=== PATIENT | female | born 1970 | race Caucasian/White ===

== ENCOUNTER 2020-08-30 15:34 | Emergency (ER) | payer OTHER, SELFPAY ==
[2020-08-30 16:00] VITALS: PULSE 77; RESP 16; TEMP 37.4
[2020-08-30 17:59] VITALS: BP 115/55; PULSE 85; RESP 16; TEMP 37.2; O2SAT 96; BMI 40.3
[2020-08-30 18:00] VITALS: BP 105/65; PULSE 81; RESP 17; TEMP 37.5; O2SAT 98
--- NOTE | 2020-08-30 18:06 | ED.GENADULT ---
HPI - General Adult General Chief complaint: Fever Stated complaint: flu like symptoms Time Seen by Provider: 08/30/20 18:06 History of Present Illness HPI narrative: patient is a 50-year-old female presents today with having coughing upper respiratory symptoms. His symptom has been going on for the last 3 days. Associated with some generalized malaise weakness. Patient had a coronavirus test done at [facility] on . The results not back. She does not have any history of diabetes. She does have some pain in her flank area worse with coughing. Denies any urinary frequency. Positive fever low-grade. Positive generalized malaise. Patient from home. No recent travel. No sudden in the family. Positive history of uterine growth. Status post surgery over 7 years ago. No abdominal pain. No sore throat no neck pain no photophobia Related Data Previous Rx's Medication Instructions Recorded ibuprofen 400 mg PO Q6H PRN #20 tab 08/30/20 Allergies Allergy/AdvReac Type Severity Reaction Status Date / Time No Known Allergies Allergy Unverified 08/06/20 17:28 Review of Systems Review of Systems: Constitutional: No Weight loss, positive Fever, No Chills, No Night Sweats, positive Fatigue, No Malaise ENT/Mouth: No Hearing loss, No Ear Pain, No Nasal Congestion, No Sinus Pain, No Hoarseness, No sore throat, No Rhinorrhea, No Swallowing Difficulty Eyes: No Eye Pain, No Swelling, No Redness, No Foreign Body, No Discharge, No Vision Changes Cardiovascular: No Chest Pain, No SOB, No Dyspnea on Exertion, No Orthopnea, No Edema, No Palpitations Respiratory: positive coughing, congestion, upper respiratory symptoms Gastrointestinal: No Nausea, No Vomiting, No Diarrhea, No Constipation, No abdominal Pain, No Hematochezia, No Melena Genitourinary: no irregular bleeding, No Dysuria, No Urinary Frequency, No Hematuria, No Urinary Incontinence, No Urgency, No Flank Pain, No Urinary Flow Changes, No Hesitancy Musculoskeletal: No joint pain, No Myalgias, No Joint Swelling Skin: No Skin Lesions, No rash Neuro: No Weakness, No Numbness, No Paresthesias, No Loss of Consciousness, No Dizziness, No Headache Psych: No Anxiety/Panic, No Depression, No SI/HI/AH/VH, No Social Issues, Heme/Lymph: No Bruising, No Bleeding,No Lymphadenopathy Endocrine: No Polyuria, No Polydipsia, No Temperature Intolerance [facility] Past Medical History Medical History Hypertension Pelvic neoplasm Social History Social History Alcohol intake: never Smoking Status: Never smoker Use of substances other than those prescribed or required for medical reasons: No Advance Directives: No Advance Directives Information Provided: Yes Physical Exam Vital Signs: Vital Signs: Vital Signs Temp Pulse Resp BP Pulse Ox 08/30/20 17:59 98.9 F 85 16 115/55 L 96 Body Mass Index 40.3 Appearance: Alert. Oriented X3. No acute distress. Eyes: Pupils equal, round and reactive to light. ENT: Pharynx normal. Neck: Normal inspection. Neck supple. No lymph nodes noted. No crepitus CVS: Normal heart rate and rhythm. Pulses normal. Normal S1 and S2 Respiratory: No respiratory distress. Breath sounds normal. No Wheezing. No rales Abdomen: Soft and nontender. No rigidity. No distention. good BS x4 Skin: Skin warm and dry. Normal skin color. Normal skin turgor. Extremities: No lower extremity edema. Neurovascular intact to all extremities. No Lacerations. No Rash Neuro: Oriented X 3. No motor deficit. No sensory deficit. Moving all extermities. No slurred speech Medical Decision Making MDM Narrative Medical decision making narrative: patient well appearing no acute distress. O2 sats 96% on room air. Patient's lungs are clear. Positive upper respiratory symptoms. Cannot exclude the possibility of coronavirus. Coronavirus test was already sent by patient's primary physician. Will ask patient to stay home quarantine until all symptoms and fever had resolved for at least 3 days. Patient told to drink a lot of fluid. Patient's heart rate is in the 80s. In no distress. Will check a urine to make sure patient does not have urinary tract infection. urine was negative for any acute evidence of infection. Patient's chest x-ray was negative for pneumonia. Will discharge patient. Lab Data Labs: Lab Results 08/30/20 Range/Units 18:33 Urine Color YELLOW Urine Appearance CLEAR Urine pH 5.5 (5.0-8.0) Ur Specific [place] 1.025 (1.005-1.025) Urine Protein NEG (NEG-TRACE) MG/DL Urine Glucose (UA) NEG (NEG) MG/DL Urine Ketones NEG (NEG) MG/DL Urine Blood NEG (NEG) Urine Nitrite NEG (NEG) Ur Leukocyte Esterase NEG (NEG) Discharge Plan Discharge Clinical Impression: Viral infection Patient Disposition: Home, Self-Care Instructions: Upper Respiratory Infection (ED), COVID-19 (Coronavirus Disease 2019) (ED) Additional Instructions: Thank you for visiting the emergency department today. If your symptoms worsen or do not resolve completely please return to the emergency department immediately or call 911. if he have any questions please call your primary care physician Prescriptions: New ibuprofen 400 mg tablet 400 mg PO Q6H PRN (Reason: pain) Qty: 20 RF: 0 Referrals: Gwen Crook MD [Primary Care Provider] - 2 days Print Language: Syriac
--- NOTE | 2020-08-30 18:09 | XR_ITS ---
EXAMINATION: XR CHEST CLINICAL INFORMATION: Cough COMPARISON: 12/16/2018 TECHNIQUE: Frontal view of the chest was obtained. FINDINGS: The heart and pulmonary vessels appear normal. No infiltrates or effusions are seen. There is some minimal ill-defined densities seen at both lung bases which appear slightly more prominent than previously noted but a focal consolidation or well-defined mass is not seen. IMPRESSION: Slight increase in basilar markings compared with the prior study. These findings could be atelectasis. Focal consolidation is not seen.
[2020-08-30 18:45] LABS: Glucose Urine UA NEG (NEG); Leukocyte Esterase Urine NEG (NEG); Nitrite Urine NEG (NEG); PH 5.5 (5.0-8.0); Specific Gravity - Urine 1.025 (1.005-1.025); Urine Blood NEG (NEG); Urine Ketones NEG (NEG); Urine Protein NEG (NEG-TRACE)
[2020-08-30 18:48] LABS: Appearance Urine CLEAR; Color Urine YELLOW
== END 2020-08-30 20:17 | disposition home or self-care (01) ==
PROVIDERS: Emergency Provider Emergency Medicine Emergency Medical Services; PCP Pediatrics
DX: B34.9 Viral infection, unspecified (principal); R50.9 Fever, unspecified; E11.9 Type 2 diabetes mellitus without complications; I10 Essential (primary) hypertension
CPT/HCPCS: 71045; 81003; 99283; 99284

== ENCOUNTER 2022-03-16 12:01 | Outpatient (REF) | payer OTHER, SELFPAY ==
--- NOTE | ~2022-03-16 | US_ITS ---
EXAMINATION: NONINVASIVE ANKLE BRACHIAL INDICES OF BOTH LOWER EXTREMITIES CLINICAL INFORMATION: Obesity, hypertension. Concern for lower extremity arterial insufficiency. COMPARISON: JAMES, PVR and limited duplex (with exercise) on 01/13/2014. TECHNIQUE: Ankle-brachial indices were calculated bilaterally and PVR tracings were performed at the level of the ankles. This study was performed at rest only. FINDINGS: RIGHT LEG: Right ankle-brachial index: 1.1 Right ankle pressures (mmHg): PT 145 DP 1:15 PVR (ankle): Loss of dicrotic notch LEFT LEG: Ankle-brachial index: 1.02 Left ankle pressures (mmHg): PT 134 DP 118 PVR (ankle): Loss of dicrotic notch JAMES Reference: - >0.97-1.25 = normal - no significant arterial disease - 0.75-0.96 = mild peripheral arterial disease - 0.5-0.74 = moderate peripheral arterial disease - <0.50 = severe peripheral arterial disease US/US JAMES complete IMPRESSION: RIGHT LEG: JAMES 1.1. No evidence of arterial insufficiency at rest. LEFT LEG: JAMES 1.02. No evidence of arterial insufficiency at rest.
== END 2022-03-16 12:02 | disposition home or self-care (01) ==
LOC: HO.US 12:01
PROVIDERS: Visit Provider Pediatrics
DX: E66.9 Obesity, unspecified (principal); I10 Essential (primary) hypertension; R43.9 Unspecified disturbances of smell and taste
CPT/HCPCS: 93923

== ENCOUNTER 2022-03-18 08:20 | Outpatient (REF) | payer OTHER, SELFPAY | END 2022-03-18 08:21 | disposition home or self-care (01) | LOC: HO.HOSX 08:20 | PROVIDERS: Visit Provider Physician Assistant | DX: Z13.89 Encounter for screening for other disorder (principal) ==

== ENCOUNTER 2022-06-24 07:27 | Outpatient (REF) | payer OTHER, SELFPAY | END 2022-06-24 07:28 | disposition home or self-care (01) | LOC: HO.HOSX 07:27 | PROVIDERS: Visit Provider Physician Assistant | DX: Z13.89 Encounter for screening for other disorder (principal) ==

== ENCOUNTER 2022-07-05 07:47 | Outpatient (REF) | payer OTHER, SELFPAY ==
--- NOTE | ~2022-07-05 | XR_ITS ---
EXAMINATION: XR KNEE STANDING, BILATERAL XR KNEE, RIGHT CLINICAL INFORMATION: Pain. COMPARISON: None TECHNIQUE: AP bilateral knee standing. Left knee 2 views. FINDINGS: AP BILATERAL KNEE: There is severe loss of medial and lateral compartment joint space of both knees with significant enthesophytes medial and lateral compartments of both knees, slightly greater on the right. No acute fracture seen. RIGHT KNEE: There is moderate loss of patellofemoral compartment joint space with moderate periarticular osteophytosis and several loose bodies in the suprapatellar joint effusion. There is moderate proximally and proximal lower leg soft tissue swelling. XR/XR knee RT 2V IMPRESSION: Severe degenerative arthritic changes right knee. There are several loose bodies seen in the suprapatellar bursa. Severe degenerative changes in medial and lateral compartment left knee on AP view standing.
--- NOTE | ~2022-07-05 | XR_ITS ---
EXAMINATION: XR KNEE STANDING, BILATERAL XR KNEE, RIGHT CLINICAL INFORMATION: Pain. COMPARISON: None TECHNIQUE: AP bilateral knee standing. Left knee 2 views. FINDINGS: AP BILATERAL KNEE: There is severe loss of medial and lateral compartment joint space of both knees with significant enthesophytes medial and lateral compartments of both knees, slightly greater on the right. No acute fracture seen. RIGHT KNEE: There is moderate loss of patellofemoral compartment joint space with moderate periarticular osteophytosis and several loose bodies in the suprapatellar joint effusion. There is moderate proximally and proximal lower leg soft tissue swelling. XR/XR knee standing BI IMPRESSION: Severe degenerative arthritic changes right knee. There are several loose bodies seen in the suprapatellar bursa. Severe degenerative changes in medial and lateral compartment left knee on AP view standing.
== END 2022-07-05 07:48 | disposition home or self-care (01) ==
LOC: HO.HOSX 07:47
PROVIDERS: Visit Provider Physician Assistant
DX: M17.0 Bilateral primary osteoarthritis of knee (principal)
CPT/HCPCS: 20610; 73560; 73565; 99202; J1040

== ENCOUNTER 2024-03-20 09:31 | Outpatient (REF) | payer OTHER, SELFPAY ==
[2024-03-20 14:26] LABS: MANUAL DIFF FLAG NO
[2024-03-20 14:39] LABS: Appearance Urine Cloudy; Color Urine Dark Yellow; Glucose Urine UA Negative (Negative); Leukocyte Esterase Urine Small (1+) (Negative); Nitrite Urine Negative (Negative); PH 5.5 (5.0-9.0); Specific Gravity - Urine 1.025 (1.005-1.025); UMIC TRIGGER UACC YES; Urine Blood Negative (Negative); Urine Ketones Negative (Negative); Urine Protein Trace mg/dL (Neg-Trace)
[2024-03-20 14:41] LABS: Basophils Percent Auto 0.6 % (0-2); Eosinophils Absolute Auto 0.1 X10*3/uL (0.0-0.4); Eosinophils Percent Auto 2.4 % (0-4); Hematocrit 38.3 % (37.0-47.0); Hemoglobin 13.2 g/dl (12.0-16.0); Lymphocytes Percent Auto 40.8 % (20-40); Mean Corpuscular HGB Conc 34.5 g/dl (31.0-35.0); Mean Corpuscular Volume 92.7 fL (80.0-98.0); Mean Platelet Volume 10.6 fL (9.4-12.3); Monocytes Absolute Auto 0.5 X10*3/uL (0.1-1.2); Neutrophils Absolute Auto 2.4 x10*3/uL (2.0-8.3); Neutrophils Percent Auto 47.2 % (45-73); Platelet Count 222 X10*3/uL (160-400); Red Blood Count 4.13 X10*6/uL (4.20-5.50); Red Cell Distribution Width 12.7 % (11.0-16.0)
[2024-03-20 14:46] LABS: Estimated Average Glucose 123 mg/dL; Hemoglobin A1c % 5.9 % (<6.0)
[2024-03-20 15:05] LABS: Total Protein Urine Random 13 mg/dL (<12)
[2024-03-20 15:11] LABS: Bacteria Urine 1+ (None Seen); Hyaline Casts Urine 0-2 /LPF (0-2); RBC Urine 0-2 /HPF (0-2); UACC Culture Trigger YES; WBC Urine 0-5 /HPF (0-5)
[2024-03-20 15:20] LABS: Rheumatoid Factor < 13.0 IU/mL (<15.0)
[2024-03-20 15:25] LABS: Erythrocyte Sedimentation Rate 10 MM/HR (0-20)
[2024-03-20 15:36] LABS: Anion Gap 13 (12-20); Blood Urea Nitrogen 18 mg/dL (9-16); Calcium 9.4 mg/dL (8.4-10.2); Carbon Dioxide 26 mmol/L (22-29); Chloride 106 mmol/L (96-108); Cholesterol 183 mg/dL (<200); Estimated Glomerular Filt Rate > 60; Glucose Fasting 104 mg/dL (60-99); HDL Cholesterol 62 mg/dL (>40); LDL Cholesterol Calculated 105 mg/dL (<100); Potassium 3.4 mmol/L (3.3-5.1); Sodium 142 mmol/L (135-145); Triglycerides 84 mg/dL (<150); Uric Acid 7.6 mg/dL (2.4-5.7)
[2024-03-20 15:43] LABS: TSH reflex Free T4 1.29 uIU/mL (0.32-4.0); Vitamin D 25-OH Total 52.8 ng/mL (>30)
[2024-03-20 15:44] LABS: Folate 15.7 ng/mL (> or = 4.0); Vitamin B12 792 pg/mL (200-900)
== END 2024-03-20 09:32 | disposition home or self-care (01) ==
LOC: HO.CHCLDS 09:31
PROVIDERS: Visit Provider Pediatrics
DX: I10 Essential (primary) hypertension (principal); E66.01 Morbid (severe) obesity due to excess calories; M17.2 Bilateral post-traumatic osteoarthritis of knee
CPT/HCPCS: 36415; 80048; 80061; 81001; 82306; 82607; 82746; 83036; 84156; 84443; 84550; 85025; 85652; 86431; 87086

== ENCOUNTER 2024-07-02 11:38 | Outpatient (REF) | payer OTHER, SELFPAY ==
[2024-07-02 15:03] LABS: Uric Acid 6.1 mg/dL (2.4-5.7)
== END 2024-07-02 11:39 | disposition home or self-care (01) ==
LOC: HO.CHCLDS 11:38
PROVIDERS: Visit Provider Pediatrics
DX: E79.0 Hyperuricemia without signs of inflammatory arthritis and tophaceous disease (principal)
CPT/HCPCS: 36415; 84550

== ENCOUNTER 2024-07-30 17:38 | Outpatient (REF) | payer OTHER, SELFPAY | END 2024-07-30 17:39 | disposition home or self-care (01) | LOC: HO.CHCLNP 17:38 | PROVIDERS: Visit Provider Pediatrics | DX: Z12.4 Encounter for screening for malignant neoplasm of cervix (principal) | CPT/HCPCS: 36415; 88175 ==

== ENCOUNTER 2025-01-16 13:54 | Outpatient (REF) | payer OTHER, SELFPAY ==
--- OUTSIDE RECORDS SUMMARY | 2025-01-16 16:47 | XMS_ITS | Encounter Summary ---
Author Organization [employer] Address [address] [place] [address] 7 [place] [address] Care Team Providers Care Contract Administrative Assistant Name Role Phone Gwen Crook MD Primary Care Provider [phone] Reason for Visit * Reason Onset Date Comments Med Refill 10/14/2024 Encounter Details Date Type Department Care Team ([facility] st Contact Info) Description 10/14/2024 Refill [facility] CHC MED & PEDS [address] [place], [place] [phone] wGen Crook MD [address] [place] [address] Lumbar disc herniation with radiculopathy Social History Tobacco Use Types Packs/Day Years Used Date Smoking Tobacco: Never Passive Smoke Exposure: Never Smokeless Tobacco: Never Depression Answer Date Recorded Patient Health Questionnaire-9 Score 4 01/19/2023 Housing Stability Answer Date Recorded What is your housing situation today? I have polo donna 09/06/[address] you li ve. Do you have problems with any of the following? None of the above 09/06/2023 Food Insecurity Answer Date Recorded Within the past 12 months, y ou worried that your food would run out before you got money to buy more: Never True 09/06/2023 Within the past 12 months,th e food you bought just didn't last and you didn't have enough money to get more: Never True Transportation Answer Date Recorded In the past 12 months, has l ack of transportation kept you from medical appts, meetings, work or from getting things needed for daily living? No 09/06/2023 Utilities Answer Date Recorded In the past 12 months, has t he electric, gas, oil or water company threatened to shut off services in your home? No 09/06/2023 Depression Answer Date Recorded Patient Health Questionnaire-2 Score 2 01/19/2023 Comments Unknown Sex and Gender Information Value Date Recorded Sex Assigned at Female 09/19/2022 10:19 AM EDT Legal Sex Female 10:19 AM EDT Gender Identity Female 09/19/2022 10:19 AM EDT Sexual Orientation Choose not to disclose 2021 10:19 AM EDT documented as of this encounter Miscellaneous Notes * Telephone Encounter - Lennie Melara - 10/14/2024 3:39 PM EST TC from pt requesting medication refill. Medications needing refill : acetaminophen-codeine (Tylenol w/ Codeine #3) 300- 30 MG tablet To be sent to: [facility] - [place], [place] - [address] [place] [address] documented in this encounter Plan of Treatment Upcoming Encounters Date Type Department Care Team (Late st Contact Info) Description 01/29/2025 2:45 PM EDT Clinical Support [facility] MED & PEDS [address] [place] [address] Gracie Riggs RN [address] [place] [address] 02/20/2025 11:00 AM EDT Office Visit [facility] MED & PEDS [address] [place] [address] Gwen Crook MD [address] [place] [address] documented as of this encounter Visit Diagnoses Diagnosis Lumbar disc herniation with radiculopathy Displacement of lumbar intervertebral disc without myelopathy documented in this encounter Additional Health Concerns Assessment Noted Time PHQ-9 Depression Total Score: 4 01/20/20 23 11:58 AM EST documented as of this encounter Care Teams Contract Administrative Assistant Relationship Specialty Start Date End Date Gwen Crook MD [address] [place] [address] PCP - General Family Medicine 11/20/18 documented as of this encounter
--- OUTSIDE RECORDS SUMMARY | 2025-01-16 16:47 | XMS_ITS | Encounter Summary ---
Author Organization [employer] Address [address] [place] [address] 7 [place] [address] Care Team Providers Care Debrander Name Role Phone Gwen Crook MD Primary Care Provider [phone] Reason for Visit * Reason Comments Med Refill Encounter Details Date Type Department Care Team ([facility] st Contact Info) Description 12/21/2024 Refill [facility] CHC MED & PEDS [address] [place], [place] [phone] Gwen Crook MD [address] [place] [address] Social History Tobacco Use Types Packs/Day Years Used Date Smoking Tobacco: Never Passive Smoke Exposure: Never Smokeless Tobacco: Never Depression Answer Date Recorded Patient Health Questionnaire-9 Score 4 01/19/2023 Housing Stability Answer Date Recorded What is your housing situation today? I have polo thompson 09/06/[address] you li [...] AM EDT documented as of this encounter Plan of Treatment Upcoming Encounters Date Type Department Care Team (Late st Contact Info) Description 01/29/2025 2:45 PM EDT Clinical Support [facility] MED & PEDS [address] [place] [address] Gracie Riggs RN [address] [place] [address] 02/20/2025 11:00 AM EDT Office Visit [facility] MED & PEDS [address] [place] [address] Gwen Crook MD [address] [place] [address] documented as of this encounter Visit Diagnoses Not on filedocumented in this encounter Additional Health Concerns Assessment Noted Time PHQ-9 Depression Total Score: 4 01/20/20 23 11:58 AM EST documented as of this encounter Care Teams Debrander Relationship Specialty Start Date End Date Gwen Crook MD [address] [place] [address] PCP - General Family Medicine 11/20/18 documented as of this encounter
--- OUTSIDE RECORDS SUMMARY | 2025-01-16 16:47 | XMS_ITS | Encounter Summary ---
Author Organization [employer] Address [address] [place] [address] 7 [place] [address] Care Team Providers Care Information Technology Technician Name Role Phone Gwen Crook MD Primary Care Provider [phone] Reason for Visit * Reason Comments Med Refill Encounter Details Date Type Department Care Team ([facility] st Contact Info) Description 01/02/2025 Refill [facility] CHC MED & PEDS [address] [place], [place] [phone] Petros Norris MD [address] [place] [address] Lumbar disc herniation with radiculopathy Social History Tobacco Use Types Packs/Day Years Used Date Smoking Tobacco: Never Passive Smoke Exposure: Never Smokeless Tobacco: Never Depression Answer Date Recorded Patient Health Questionnaire-9 Score 4 01/19/2023 Housing Stability Answer Date Recorded What is your housing situation today? I have poloshwetha thompson 01/01/[address] you li ve. Do you have problems with any of the following? None of the above 01/01/2025 Food Insecurity Answer Date Recorded Within the past 12 months, y ou worried that your food would run out before you got money to buy more: Never True 01/01/2025 Within the past 12 months,th e food you bought just didn't last and you didn't have enough money to get more: Never True 10/2025 Transportation Answer Date Recorded In the past 12 months, has l ack of transportation kept you from medical appts, meetings, work or from getting things needed for daily living? No 01/01/2025 Utilities Answer Date Recorded In the past 12 months, has t he electric, gas, oil or water company threatened to shut off services in your home? Yes 01/01/2025 Depression Answer Date Recorded Patient Health Questionnaire-2 Score 2 01/19/2023 Internet Access Answer Date Recorded Internet Access Q1 Yes 01/01/2025 Internet Access Q2 Not on file 01/01/2025 Comments Unknown Sex and Gender Information Value Date Recorded Sex Assigned at Female 09/19/2022 10:19 AM EDT Legal Sex Female 10:19 AM EDT Gender Identity Female 09/19/2022 10:19 AM EDT Sexual Orientation Choose not to disclose 2021 10:19 AM EDT documented as of this encounter Plan of Treatment Upcoming Encounters Date Type Department Care Team ([facility] st Contact Info) Description 01/29/2025 2:45 PM EDT Clinical Support [facility] MED & PEDS [address] [place] [address] Gracie Rigsg RN [address] [place] [address] 02/20/2025 11:00 AM EDT Office Visit [facility] MED & PEDS [address] [place] [address] Gwen Crook MD [address] [place] [address] documented as of this encounter Visit Diagnoses Diagnosis Lumbar disc herniation with radiculopathy Displacement of lumbar intervertebral disc without myelopathy documented in this encounter Additional Health Concerns Assessment Noted Time PHQ-9 Depression Total Score: 4 01/20/20 23 11:58 AM EST documented as of this encounter Care Teams Information Technology Technician Relationship Specialty Start Date End Date Gwen Crook MD [address] [place] [address] PCP - General Family Medicine 11/20/18 documented as of this encounter
--- OUTSIDE RECORDS SUMMARY | 2025-01-16 16:47 | XMS_ITS | Encounter Summary ---
Author Organization [employer] Address [address] [facility] 7 [place] [address] Care Team Providers Care Patent Searcher Name Role Phone Gwen Crook MD Primary Care Provider [phone] Reason for Visit * Reason Comments Pre-visit Planning SDOH screening posit felipe and Tobacco screening negative Encounter Details Date Type Department Care Team ([facility] st Contact Info) Description 01/01/2025 Patient Outreach [facility] MEDICINE [address] [place] [address] Gwen Crook MD [address] [place] [id number] Pre-visit Planning (SDOH screening positive and Tobacco screening negative) Social History Tobacco Use Types Packs/Day Years Used Date Smoking Tobacco: Never Passive Smoke Exposure: Never Smokeless Tobacco: Never Depression Answer Date Recorded Patient Health Questionnaire-9 Score 4 01/19/2023 Housing Stability Answer Date Recorded What is your housing situation today? I have polo thompson 01/01/[address] you [...] AM EDT documented as of this encounter Progress Notes * Fletcher Mendoza - 01/01/2025 1:32 PM EST CC Fletcher Lugo placed successful outbound call to patient for pre-visit planning. Patient name and confirmed. Patient confirms appt date and time, and has transportation arrangements. Biggest concern for appointment at this time is patient is having leg swelling with liquid and lower back pain. .Patient educated on extended clinic hours on Mondays and Wednesdays, and Walk-In Urgent Care Located in [facility] of [facility]. Patient provided with after-hours line for [facility], , which offer night time triage service and option to transfer to staff weapons officer provider if needed. Patient advised to bring toappointment a photo id and insurance card. Appropriate screenings completed in anticipation of appointment. SDOH positive. Patient looking for assistance with utilities. documented in this encounter Plan of Treatment Upcoming Encounters Date Type Department Care Team ([facility] st Contact Info) Description 01/29/2025 2:45 PM EDT Clinical Support [facility] MED & PEDS [address] [place] [address] Gracie Riggs, RN [address] [place] [address] 02/20/2025 11:00 AM EDT Office Visit [facility] MED & PEDS [address] [place] [address] Gwen Crook MD [address] [place] [address] documented as of this encounter Visit Diagnoses Not on filedocumented in this encounter Additional Health Concerns Assessment Noted Time PHQ-9 Depression Total Score: 4 01/20/20 23 11:58 AM EST documented as of this encounter Care Teams Patent Searcher Relationship Specialty Start Date End Date Gwen Crook MD [address] [place] [address] PCP - General Family Medicine 11/20/18 documented as of this encounter
--- OUTSIDE RECORDS SUMMARY | 2025-01-16 16:47 | XMS_ITS | Encounter Summary ---
Author Organization [employer] Address [address] [facility] 7 [place] [address] Care Team Providers Care Herpetologist Name Role Phone Gwen Crook MD Primary Care Provider [phone] Reason for Visit * Reason Onset Date Comments Nurse Triage 11/28/2023 Encounter Details Date Type Department Care Team ([facility] st Contact Info) Description 11/28/2023 Telephone [facility] MEDICINE [address] [place] [address] Gwen Crook MD [address] [place] [address] Nurse Triage Social History Tobacco Use Types Packs/Day Years Used Date Smoking Tobacco: Never Passive Smoke Exposure: Never Smokeless Tobacco: Never Depression Answer Date Recorded Patient Health Questionnaire-9 Score 4 01/19/2023 Housing Stability Answer Date Recorded What is your housing situation today? I have poloshwetha thompson 09/06/[address] you [...] t he electric, gas, oil or water [employer] threatened to shut off services in your [...] encounter Miscellaneous Notes * Telephone Encounter - Martha Ellison RN - 11/28/2023 3:19 PM EST Call returned to Simran Murphy for triage. No answer LVM to return call to [facility] triage line [phone]. * Telephone Encounter - Cisco Murphy - 11/28/2023 2:26 PM EST Symptoms: Headache, Dizziness Outcome: Schedule an urgent appointment (within 4 hours) or talk to a nurse or provider soon Reason: Getting worse The caller accepted this outcome documented in this encounter Plan of Treatment Upcoming Encounters Date Type Department Care Team ([facility] st Contact Info) Description 01/29/2025 2:45 PM EDT Clinical Support [facility] MED & PEDS [address] [place] [address] Gracie Riggs RN [address] [place] [address] 02/20/2025 11:00 AM EDT Office Visit [facility] MED & PEDS [address] [place] [address] Gwen Crook MD [address] [place] [address] documented as of this encounter Visit Diagnoses Not on filedocumented in this encounter Additional Health Concerns Assessment Noted Time PHQ-9 Depression Total Score: 4 01/20/20 23 11:58 AM EST documented as of this encounter Care Teams Herpetologist Relationship Specialty Start Date End Date Gwen Crook MD [address] [place] [address] PCP - General Family Medicine 11/20/18 documented as of this encounter
--- OUTSIDE RECORDS SUMMARY | 2025-01-16 16:47 | XMS_ITS | Continuity of Care Document ---
Author Organization [facility] Address [address] [place] [address]- Care Team Providers Care Integrated Logistics Operations Manager Name Role Phone Ambreen URIBE, Gwen Menchaca Primary Care Physician [place] [facility] [id number] Date(s): 11/28/24 - 12/28/24 [facility] [address] [place] [address]- Attending Physician: Shanel Weiss Admitting Physician: AdmShanel delaney Referring Physician: Admtr ArSamantha Encounter Type: Triage Allergies, Adverse Reactions, Alerts Substance Criticality Severity Reaction Reaction Severity Status aspirin Active Medications Albuterol (Eqv-ProAir HFA) 90 mcg/inh inhalation aerosol TAKE 2 PUFFS BY MOUTH EVERY 4 6 HOURS NEEDED COUGH ASTHMA Start Date: 10/06/22 Status: Ordered Repeat number: 1 Breo Ellipta 100 mcg-25 mcg/inh inhalation powder 0 Refills, Maintenance, 07/01/23 12:59:00 AM EDT, Partial fill upon patient request if the prescription is for a schedule II opioid drug. Start Date: 07/01/23 Status: Ordered Repeat number: 1 EPINEPHrine 0.3 mg injectable solution INJECT 1 PEN SUBCUTANEOUSLY NEEDED FOR SEVERE ALLERGY Start Date: 10/06/22 Status: Ordered Repeat number: 1 famotidine 20 mg oral tablet 20 mg, 1, tablet, By Mouth, 2 times a day, # 60 tablet, Refills 0, Tot. Refills 0, Maintenance, 07/01/23 4:12:00 PM EDT, Route to Pharmacy Electronically, [facility]/pharmacy #[id number], Partial fill upon patientrequest if the prescription is for a schedule II opioid drug., 167, cm, 07/01/23 14:30:00 EDT, Height, 118, kg, 07/01/23 14:30:00 EDT, Dry Weight Start Date: 07/01/23 Status: Ordered Quantity: 60.0 Unit: tablet Repeat number: 1 hydrochlorothiazide-valsartan 25 mg-160 mg oral tablet TAKE 1 TABLET BY MOUTH EVERY DAY Start Date: 10/06/22 Status: Ordered Repeat number: 1 loratadine 10 mg oral tablet TAKE 1 TABLET BY MOUTH EVERY DAY Start Date: 07/01/23 Status: Ordered Repeat number: 1 methocarbamol 500 mg oral tablet 1 tablet = 500 mg, By Mouth, 2 times a day, 0 Refills, Maintenance, 06/04/24 11:01:00 AM EDT, Partial fill upon patient request if the prescription is for a schedule II opioid drug. Start Date: 06/04/24 Status: Ordered Repeat number: 1 omeprazole 20 mg oral enteric coated capsule TAKE 1 CAPSULE BY MOUTH TWICE A DAY Start Date: 07/01/23 Status: Ordered Repeat number: 1 PEG-3350 with Electrolytes Lemon (Eqv-NuLYTELY) oral powder for reconstitution See Instructions, follow instructions provided by the office, # 240 mL, 0 Refills, Maintenance, 06/27/24 3:12:00 PM EDT, REC Powder, [facility]/pharmacy #[id number], Partial fill upon patient request if the prescription is for a schedule II opioid drug., follow instructions provided by the office, 167.6, cm, 06/27/24 14:49:00 EDT, Height, 116.3, kg, 06/04/24 11:06:00 EDT, Dry Weight Start Date: 06/27/24 Status: Ordered Quantity: 240.0 Unit: mL Repeat number: 1 sucralfate 1 gm oral tablet 1 Gm, 1, tablet, By Mouth, 4 times a day, # 120 tablet, Refills 0, Tot. Refills 0, Maintenance, 07/01/23 4:09:00 PM EDT, Route to Pharmacy Electronically, [facility]/pharmacy #[id number], Partial fill upon patientrequest if the prescription is for a schedule II opioid drug., 167, cm, 07/01/23 14:30:00 EDT, Height, 118, kg, 07/01/23 14:30:00 EDT, Dry Weight Start Date: 07/01/23 Status: Ordered Quantity: 120.0 Unit: tablet Repeat number: 1 Tylenol Extra Strength 500 mg oral tablet 2 tablet = 1,000 mg, By Mouth, 3 times a day, PRN as needed for pain, # 90 tablet, 0 Refills, Maintenance, 10/25/22 7:06:00 AM EST, Tablet, Partial fill upon patient request if the prescription is fora schedule II opioid drug. Start Date: 10/25/22 Status: Ordered Quantity: 90.0 Unit: tablet Repeat number: 1 Tylenol with Codeine #4 By Mouth, Every 6 hours, 0 Refills, Maintenance, 06/04/24 11:00:00 AM EDT, Partial fill upon patientrequest if the prescription is for a schedule II opioid drug. Start Date: 06/04/24 Status: Ordered Repeat number: 1 VITAMIN B-12 TAB 1000MCG VITAMIN B-12 TAB 1000MCG, 0 Refills, Maintenance, 10/06/22 1:10:00 PM EST Start Date: 10/06/22 Status: Ordered Repeat number: 1 Vitamin D3 5000 intl units oral tablet 1 tablet = 5,000 International_Units, By Mouth, Daily, # 30 tablet, 0 Refills, Maintenance, :06:00 AM EST, Tablet, Partial fill upon patient request if the prescription is for a schedule II opioid drug. Start Date: 10/25/22 Status: Ordered Quantity: 30.0 Unit: tablet Repeat number: 1 Problem List Condition Confirmation Course Effective Dates Status Health St atus Informant GERD (gastroesophageal reflux disease) Confirmed Active Low back pain Confirmed Active Severe obesity Confirmed Active Social History Social History Type Response Tobacco Other: USES MARIJUAN A. Sex Sex Representation Female (finding) Implantable Device List Procedure Provider Procedure Date Device Type Site Fusion Hind Foot Yadiel Kramer MD 10/24/22 Unknown Ankle Left Device Identifier Serial Number Lot or Batch Number Manufacturing Date Expiration Date Distinct Identification Code MRI Safety Implantable Status Assigning Authority Unknown [id number] Unknown 03/17/24 Unknown Unknown Active Unkn own Patient Care team information Care Team Personnel Name: Gwen Crook MD Position: [facility] Outreach Member Role: PCP Address: [address] [place] [place] [address] Telecom: Name: Concetta La RN Position: [facility] RN Member Role: Primary Care Nurse Name: Latonia Sandoval RN Position: S RN Member Role: Primary Care Nurse Name: Gely Kinney RN Position: [facility] Onco RN Member Role: Primary Care Nurse Care Team Related Persons Name: TAMARA ONEILL Name: ALPHONSE FULLER Insurance Providers Guarantor name: [employer] Plan Information #: 1 Payer: [facility] [employer] Member Number: NA Policy Number: NA Group Number: NA
--- OUTSIDE RECORDS SUMMARY | 2025-01-16 16:48 | XMS_ITS | Encounter Summary ---
Author Organization [employer] Address [address] [facility] 7t [place] [address] Care Team Providers Care Jig Mill Operator Name Role Phone Gwen Crook MD Primary Care Provider [phone] Encounter Details Date Type Department Care Team ([facility] st Contact Info) Description 12/02/2024 Orders Only [facility] CHC MED & PEDS [address] [place] [address] Provider, MD Owen Social History Tobacco Use Types Packs/Day Years [...] Upcoming Encounters Date Type Department Care Team ([facility] st Contact Info) Description 01/29/2025 2:45 PM EDT Clinical Support [facility] MED & PEDS [address] [place] [address] Gracie Riggs, TARAS [address] [place] [address] 02/20/2025 11:00 AM EDT Office Visit [facility] [address] [place] [address] Gwen Crook MD [address] [place] [address] documented as of this encounter Procedures Procedure Name Priority Date/Time Associated Diagnosis Comments ALBUMIN/CREATININE RATIO, RANDOM URINE Routine 11/06/2024 3:25 PM EST documented in this encounter Results * Albumin/Creatinine Ratio, Random Urine (11/06/2024 3:25 PM EST) Urine (Urine, Random) us Historical Provider LAB URINE ORDERABLES Maribell l Result documented in this encounter Visit Diagnoses Not on filedocumented in this encounter Additional Health Concerns Assessment Noted Time PHQ-9 Depression Total Score: 4 01/20/20 23 11:58 AM EST documented as of this encounter Care Teams Jig Mill Operator Relationship Specialty Start Date End Date Gwen Crook MD [address] [place] [address] PCP - General Family Medicine 11/20/18 documented as of this encounter
--- OUTSIDE RECORDS SUMMARY | 2025-01-16 16:48 | XMS_ITS | Encounter Summary ---
Author Organization [facility] Address [address] [place] [address] 7 [place] [address] Care Team Providers Care Reptile Keeper Name Role Phone Gwen Crook MD Primary Care Provider [phone] Encounter Details Date Type Department Care Team ([facility] st Contact Info) Description 01/16/2025 1:15 PM EST Office Visit [facility] CHC MED & PEDS [address] [place], [place] [phone] Gwen Crook MD [address] [place] [address] Prediabetes (Primary Dx); Neck pain, bilateral posterior Social History Tobacco Use Types Packs/Day Years Used Date Smoking Tobacco: Never Passive Smoke Exposure: Never Smokeless Tobacco: Never Depression Answer Date Recorded Patient Health Questionnaire-9 Score 4 01/19/2023 Housing Stability Answer Date Recorded What is your housing situation today? I have polo sing 01/01/[address] you li [...] AM EDT documented as of this encounter Last Filed Vital Signs Vital Sign Reading Time Taken Comments Blood Pressure 125/65 01/16/2025 1:28 PM EST Pulse 70 01/16/2025 1:28 PM EST Temperature 36.3 ??C (97.4 ??F) 01/16/2025 1:28 PM ES T Respiratory Rate 18 01/16/2025 1:28 PM EST Oxygen Saturation 99% 01/16/2025 1:28 PM EST Inhaled Oxygen Concentration - - Weight 120 kg (264 lb 12.8 oz) 01/16/2025 1:28 P M EST Height 161 cm (5' 3.39 ) 01/16/2025 1:28 PM EST Body Mass Index 46.34 01/16/2025 1:28 PM EST documented in this encounter Plan of Treatment Upcoming Encounters Date Type Department Care Team (Late st Contact Info) Description 01/29/2025 2:45 PM EDT Clinical Support [facility] MED & PEDS [address] [place] [address] Gracie Riggs RN [address] [place] [address] 02/20/2025 11:00 AM EDT Office Visit [facility] PED[facility] [address] [place] [address] Gwen Crook MD [address] [place] [address] Scheduled Orders Name Type Priority Associated Diagnoses Orde r Schedule CBC auto differential Lab Routine Prediabetes Expected: 01/16/2025 (Approximate), Expires: 01/16/2026 Comprehensive Metabolic Panel Lab Routine Prediabetes Expected: 01/16/2025 (Approximate), Expires: 01/16/2026 Hemoglobin A1c Lab Routine Prediabetes Expected: 01/16/2025 (Approximate), Expires: 01/16/2026 TSH W/Reflex to FT4 Lab Routine Prediabetes Expected: 01/16/2025 (Approximate), Expires: 01/16/2026 Vitamin B12/Folate, Serum Panel Lab Routine Prediabetes Expected: 01/16/2025, Expires: 01/16/2026 Sed Rate by Modified Westergren Lab Routine Prediabetes Expected: 01/16/2025, Expires: 01/16/2026 XR CERVICAL SPINE 4V Imaging Routine Neck pain, bilateral posterior Expected: 01/16/2025, Expires: 01/16/2026 documented as of this encounter Visit Diagnoses Diagnosis Prediabetes- Primary Other abnormal glucose Neck pain, bilateral posterior documented in this encounter Additional Health Concerns Assessment Noted Time PHQ-9 Depression Total Score: 4 01/20/20 23 11:58 AM EST documented as of this encounter Care Teams Reptile Keeper Relationship Specialty Start Date End Date Gwen Crook MD [address] [place] [address] PCP - General Family Medicine 11/20/18 documented as of this encounter
--- OUTSIDE RECORDS SUMMARY | 2025-01-16 16:48 | XMS_ITS | Continuity of Care Document ---
Author Organization [facility] Address [address] [place] [address]- Care Team Providers Care Professor Of Art History Name Role Phone Ambreen URIBE, Gwen Menchaca Primary Care Physician [phone] [id number]): [facility]30[facility] - 12/28/24 [facility] [address] [place] [address]- Attending Physician: Dedrick Garcia MD Admitting Physician: Dedrick Garcia MD Referring Physician: Diogenes Arroyo Encounter Type: Pre-OutPatient One Time Allergies, Adverse Reactions, Alerts Substance Criticality Severity [...] 4:12:00 PM EDT, Route to Pharmacy Electronically, [facility]/pharmacy #[id number], Partial fill upon patientrequest if the prescription [...] Maintenance, 06/27/24 3:12:00 PM EDT, REC Powder, [facility]/pharmacy #[id number], Partial fill upon patient request if [...] 4:09:00 PM EDT, Route to Pharmacy Electronically, [facility]/pharmacy #[id number], Partial fill upon patientrequest if the [...] MRI Safety Implantable Status Assigning Authority Unknown [id number] Unknown 03/17/24 Unknown Unknown Active Unkn own Patient Care team information Care Team Personnel Name: Gwen Crook MD Position: [facility] Outreach Member Role: PCP Address: [address] [place] [address] Telecom: Name: Concetta La RN Position: [facility] RN Member Role: Primary Care Nurse Name: Latonia Sandoval RN Position: S RN Member Role: Primary Care Nurse Name: Gely Kinney RN Position: [facility] Onco RN Member Role: Primary Care Nurse Care Team Related Persons Name: TAMARA ONEILL Name: ALPHONSE FULLER Insurance Providers Guarantor name: [facility] Information #: 1 Payer: [employer] Member Number: [id number] Policy Number: NA Group Number: [employer] Plan Information #: 2 Payer: [employer] Member Number: [id number] Policy Number: NA Group Number: NA
--- OUTSIDE RECORDS SUMMARY | 2025-01-16 16:48 | XMS_ITS | Encounter Summary ---
Author Organization [employer] [facility] Address [address] [place] [address] 7 [place] [address] Care Team Providers Care Tire Maintenance Technician Name Role Phone Gwen Crook MD Primary Care Provider [phone] Reason for Visit * Reason Comments Med Refill Encounter Details Date Type Department Care Team ([facility] st Contact Info) Description 02/11/2024 Refill [facility] CHC MED & PEDS [address] [place], [place] [phone] Petros Norris MD [address] [place] [address] Social History Tobacco Use Types Packs/Day Years [...] Description 01/29/2025 2:45 PM EDT Clinical Support [facility] MED & PEDS [address] [place] [address] Gracie Riggs RN [address] [place] [address] 02/20/2025 11:00 AM EDT Office Visit [facility] MED & PEDS [address] [place] [address] Gwen Corok MD [address] [place] [address] documented as of this encounter Visit Diagnoses Not on filedocumented in this encounter Additional Health Concerns Assessment Noted Time PHQ-9 Depression Total Score: 4 01/20/20 23 11:58 AM EST documented as of this encounter Care Teams Tire Maintenance Technician Relationship Specialty Start Date End Date Gwen Crook MD [address] [place] [address] PCP - General Family Medicine 11/20/18 documented as of this encounter
--- OUTSIDE RECORDS SUMMARY | 2025-01-16 16:48 | XMS_ITS | Clinical Summary ---
Author Organization [facility] Address [address] [place] [address] Care Team Providers Care Credit Card Specialist Name Role Phone Unavailable Primary Care Provider Unavailabl e Social History Tobacco Use Types Packs/Day Years Used Date Smoking Tobacco: Never Assessed Comments Unknown Sex and Gender Information Value Date Recorded Sex Assigned at Not on file Legal Sex Female 3:01 AM EST Gender Identity Not on file Sexual Orientation Not on file Plan of Treatment Health Maintenance Due Date Last Done Comments Breast Cancer Screening 1969 DTaP,Tdap,and Td Vaccines (1 - Tdap) 1988 Hepatitis B Vaccines (1 of 3 - 19+ 3-dose series) 1988 Cervical Cancer Screening: P ap Smear 1990 Pneumococcal Vaccine: 50+ Ye ars (1 of 1 - PCV) 2019 Zoster Vaccines (1 of 2) 2019 Colorectal Cancer Screening: Colonoscopy 10/23/2022 Depression Screening 10/23/2022 HIV Screening 10/23/2022 Hepatitis C Screening 10/23/2022 Social Influencers of Health Screening 10/23/2022 COVID-19 Vaccine ( - 2023-2 5 season) 2024 Influenza Vaccine (#1) 2024 HIB Vaccines Aged Out No longer eligi ble based on patient's age to complete this topic HPV Vaccines Aged Out No longer eligi ble based on patient's age to complete this topic Hepatitis A Vaccines Aged Out No long er eligible based on patient's age to complete this topic IPV Vaccines Aged Out No longer eligi ble based on patient's age to complete this topic MMR Vaccines Aged Out No longer eligi ble based on patient's age to complete this topic Meningococcal ACWY Vaccine Aged Out N o longer eligible based on patient's age to complete this topic Meningococcal B Vacine Aged Out No lo nger eligible based on patient's age to complete this topic Pneumococcal Vaccine: Pediat rics (0 to 5 Years) and At-Risk Patients (6 to 64 Years) Aged Out No longer eligible b ased on patient's age to complete this topic RSV Immunization Patients Un breezy 20 months Aged Out No longer eligible b ased on patient's age to complete this topic Varicella Vaccines Aged Out No longer eligible based on patient's age to complete this topic
--- OUTSIDE RECORDS SUMMARY | 2025-01-16 16:48 | XMS_ITS | Encounter Summary ---
Author Organization [facility] Address [address] [place] [address] 7 [place] [address] Care Team Providers Care Cutter First Name Role Phone Gwen Crook MD Primary Care Provider [phone] Reason for Visit * Reason Comments Med Refill Encounter Details Date Type Department Care Team ([facility] Contact Info) Description 08/18/2023 Refill [facility] MED & PEDS [address] [place] [address] Gwen Crook MD [address] [place] [address] Social History Tobacco Use Types Packs/Day Years Used Date Smoking Tobacco: Never Passive Smoke Exposure: Never Smokeless Tobacco: Never Depression Answer Date Recorded Patient Health Questionnaire-9 Score 4 01/19/2023 Depression Answer Date Recorded Patient Health Questionnaire-2 [...] Upcoming Encounters Date Type Department Care Team ([facility] Contact Info) Description 01/29/2025 2:45 PM EDT Clinical Support [facility] MED & PEDS [address] [place] [address] Gracie Riggs RN [address] [place], [place] [phone] 02/20/2025 11:00 AM EDT Office Visit [facility] MED & PEDS [address] [place] [address] Gwen Crook MD [address] [place] [address] documented as of this encounter Visit Diagnoses Not on filedocumented in this encounter Additional Health Concerns Assessment Noted Time PHQ-9 Depression Total Score: 4 01/20/20 23 11:58 AM EST documented as of this encounter Care Teams Cutter First Relationship Specialty Start Date End Date Gwen Crook MD [address] [place] [address] PCP - General Family Medicine 11/20/18 documented as of this encounter
--- OUTSIDE RECORDS SUMMARY | 2025-01-16 16:48 | XMS_ITS | Encounter Summary ---
Author Organization [employer] [facility] Address [address] [place] [address] [place] [address] Care Team Providers Care Watch Assembly Inspector Name Role Phone Gwen Crook MD Primary Care Provider [phone] Reason for Visit * Reason Comments Care Coordination CHW outreach for SDO H utilities and food needs-referral completed Encounter Details Date Type Department Care Team (Latest Contact Info) Description 01/01/2025 Patient Outreach [facility] CHC MED & PEDS [address] [place] [address] Gwen Crook MD [address] [place] [address] Care Coordination (CHW outreach for SDOH utilities and food needs-referral completed /) Social History Tobacco Use Types Packs/Day Years [...] as of this encounter Progress Notes * Adrian Rodríguez - 01/01/2025 1:55 PM EST CHW Adrian Rodríguez, placed outbound call to patient for assistance with SDOH as a referral was received by the provider. Patient's name and were confirmed. Patient screened positive for the following SDOH food insecurities. CHW referred patient to the HIP program and [employer] pantries in the local area. Patient agree to follow up with plan. Patient educated on extended clinic hours on Mondays thro wednesdays, and Walk-In Urgent Care Located in [facility] of [facility]. Patient provided with after-hours line for [facility], , which offer night time triage service and option to transfer to tongue binder provider if needed. documented in this encounter Plan of Treatment Upcoming Encounters Date Type Department Care Team ([facility] st Contact Info) Description 01/29/2025 2:45 PM EDT Clinical Support [facility] MED & PEDS [address] [place] [address] Gracie Riggs, TARAS [address] [place] [address] 02/20/2025 11:00 AM EDT Office Visit [facility] MED & PEDS [address] [place] [address] Gwen Crook MD [address] [place] [address] documented as of this encounter Visit Diagnoses Not on filedocumented in this encounter Additional Health Concerns Assessment Noted Time PHQ-9 Depression Total Score: 4 01/20/20 23 11:58 AM EST documented as of this encounter Care Teams Watch Assembly Inspector Relationship Specialty Start Date End Date Gwen Crook MD [address] [place] [address] PCP - General Family Medicine 11/20/18 documented as of this encounter
--- OUTSIDE RECORDS SUMMARY | 2025-01-16 16:48 | XMS_ITS | Encounter Summary ---
Author Organization [employer] Address [address] [place] [address] 7 [place] [address] Care Team Providers Care Escrow Manager Name Role Phone Gwen Crook MD Primary Care Provider [phone] Reason for Visit * Reason Comments Med Refill Encounter Details Date Type Department Care Team ([facility] st Contact Info) Description 12/19/2024 Refill [facility] CHC MED & PEDS [address] [place], [place] [phone] Gwen Crook MD [address] [place] [address] Social History Tobacco Use Types Packs/Day Years [...] Description 01/29/2025 2:45 PM EDT Clinical Support [facility] MED & PEDS [address] [place] [address] Gracie Riggs RN [address] [place] [address] 02/20/2025 11:00 AM EDT Office Visit [facility] MED & PEDS [address] [place] [address] Gwen Crook MD [address] [place] [address] documented as of this encounter Visit Diagnoses Not on filedocumented in this encounter Additional Health Concerns Assessment Noted Time PHQ-9 Depression Total Score: 4 01/20/20 23 11:58 AM EST documented as of this encounter Care Teams Escrow Manager Relationship Specialty Start Date End Date Gwen Crook MD [address] [place] [address] PCP - General Family Medicine 11/20/18 documented as of this encounter
--- OUTSIDE RECORDS SUMMARY | 2025-01-16 16:48 | XMS_ITS | Encounter Summary ---
Author Organization [employer] Address [address] [place] [address] 7t [place] [address] Care Team Providers Care Hotel Staff Member Name Role Phone Gwen Crook MD Primary Care Provider [phone] Encounter Details Date Type Department Care Team (Latest Contact Info) Description 01/16/2025 Travel Social History Tobacco Use Types Packs/Day Years [...] Upcoming Encounters Date Type Department Care Team ([facility] st Contact Info) Description 01/29/2025 2:45 PM EDT Clinical Support [facility] MED & PEDS [address] [place] [address] Gracie Riggs, TARAS [address] [place] [address] 02/20/2025 11:00 AM EDT Office Visit [facility] MED & PEDS [address] [place] [address] Gwen Crook MD [address] [place] [address] documented as of this encounter Visit Diagnoses Not on filedocumented in this encounter Additional Health Concerns Assessment Noted Time PHQ-9 Depression Total Score: 4 01/20/20 23 11:58 AM EST documented as of this encounter Care Teams Hotel Staff Member Relationship Specialty Start Date End Date Gwen Crook MD [address] [place] [address] PCP - General Family Medicine 11/20/18 documented as of this encounter
--- OUTSIDE RECORDS SUMMARY | 2025-01-16 16:48 | XMS_ITS | Encounter Summary ---
Author Organization [employer] Address [address] [place] [address] [place] [address] Care Team Providers Care Interior Surface Insulation Worker Name Role Phone Gwen Crook MD Primary Care Provider [phone] Reason for Visit * Reason Comments Med Refill Encounter Details Date Type Department Care Team (Late Contact Info) Description 12/16/2022 Refill [facility] MEDICINE [address] [place], [place] [phone] Paige Juares MD [address] [place] [address] Social History Tobacco Use Types Packs/Day Years [...] Encounters Date Type Department Care Team (Late Contact Info) Description 01/29/2025 2:45 PM EDT Clinical Support [facility] CHC MED & PEDS [address] [place] [address] Gracie Riggs, TARAS [address] [place], [place] [phone] 02/20/2025 11:00 AM EDT Office Visit [facility] CHC MED & PEDS [address] [place] [address] Gwen Crook MD 505 [place], [place] [phone] documented as of this encounter Visit Diagnoses Not on filedocumented in this encounter Care Teams Interior Surface Insulation Worker Relationship Specialty Start Date End Date Gwen Crook MD [address] [place] [address] PCP - General Family Medicine 11/20/18 documented as of this encounter
--- OUTSIDE RECORDS SUMMARY | 2025-01-16 16:48 | XMS_ITS | Encounter Summary ---
Author Organization [email or web address] Address [address] [place] [address] [place] [address] Care Team Providers Care Painter Helper Sign Name Role Phone Gwen Crook MD Primary Care Provider [phone] Reason for Visit * Reason Onset Date Comments triage 02/17/2023 Encounter Details Date Type Department Care Team ([facility] st Contact Info) Description 02/17/2023 Telephone [facility] CHC MED & PEDS [address] [place], [place] [phone] Gwen Crook MD [address] [place] [address] triage Social History Tobacco Use Types Packs/Day Years [...] not to disclose 2021 10:19 AM EDT COVID-19 Exposure Response Date Recorded In the last 10 days, have yo u been in contact with someone who was confirmed or suspected to have Coronavirus/COVID-19? No / Unsure 01/19/2023 10:44 AM EST documented as of this encounter Miscellaneous Notes * Telephone Encounter - Martha Ellison RN - 02/17/2023 12:30 PM EDT Call returned to patient for triage. No answer LVM to return call to [facility] triage line. Protocol Used: No Contact or Duplicate Contact Call (Adult) Protocol-Based Disposition: No Contact Call Positive Triage Question: * Message left on identified voicemail * All higher-acuity triage questions were negative * Telephone Encounter - Lennie Melara - 02/17/2023 11:46 AM EDT Symptom: Body Aches and tiredness Outcome: Schedule an appointment to be seen within 3 days Reason: No high acuity concerns reported by caller The caller accepted this outcome documented in this encounter Plan of Treatment Upcoming Encounters Date Type Department Care Team ([facility] st Contact Info) Description 01/29/2025 2:45 PM EDT Clinical Support [facility] MED & PEDS [address] [place] [address] Gracie Riggs RN 505 [place] [address] 02/20/2025 11:00 AM EDT Office Visit [facility] MED & PEDS [address] [place] [address] Gwen Crook MD [address] [place] [address] documented as of this encounter Visit Diagnoses Not on filedocumented in this encounter Additional Health Concerns Assessment Noted Time PHQ-9 Depression Total Score: 4 01/20/20 23 11:58 AM EST documented as of this encounter Care Teams Painter Helper Sign Relationship Specialty Start Date End Date Gwen Crook MD [address] [place] [address] PCP - General Family Medicine 11/20/18 documented as of this encounter
--- OUTSIDE RECORDS SUMMARY | 2025-01-16 16:48 | XMS_ITS | Encounter Summary ---
Author Organization [employer] Address [address] [place] [address] 7 [place] [address] Care Team Providers Care Client Development Consultant Name Role Phone Gwen Crook MD Primary Care Provider [phone] Reason for Visit * Reason Comments Med Refill Encounter Details Date Type Department Care Team ([facility] st Contact Info) Description 12/20/2024 Refill [facility] CHC MED & PEDS [address] [place], [place] [phone] Gwen Crook MD [address] [place] [address] Social History Tobacco Use Types Packs/Day Years [...] Description 01/29/2025 2:45 PM EDT Clinical Support [facility] MED & PEDS [address] [place] [address] Gracie Riggs RN 505 [place] [address] 02/20/2025 11:00 AM EDT Office Visit [facility] MED & PEDS [address] [place] [address] Gwen Crook MD [address] [place] [address] documented as of this encounter Visit Diagnoses Not on filedocumented in this encounter Additional Health Concerns Assessment Noted Time PHQ-9 Depression Total Score: 4 01/20/20 23 11:58 AM EST documented as of this encounter Care Teams Client Development Consultant Relationship Specialty Start Date End Date Gwen Crook MD [address] [place] [address] PCP - General Family Medicine 11/20/18 documented as of this encounter
--- OUTSIDE RECORDS SUMMARY | 2025-01-16 16:48 | XMS_ITS | Encounter Summary ---
Author Organization [employer] Address [address] [place] [address] [place] [address] Care Team Providers Care Siebel Architect Name Role Phone Gwen Crook MD Primary Care Provider [phone] Reason for Visit * Reason Onset Date Comments Appointment Request 11/28/2022 Encounter Details Date Type Department Care Team ([facility] Contact Info) Description 11/28/2022 Telephone [facility] MEDICINE [address] [place], [place] [phone] Gwen Crook MD [address] [place] [address] Appointment Request Social History Tobacco Use Types Packs/Day Years [...] encounter Miscellaneous Notes * Telephone Encounter - Curt Mccauley - 11/28/2022 2:24 PM EST Tc from pt requesting to r/s appt 11/29/22 at 2:30 (SUPERVISOR SMOKE CONTROL Initial [place]) Please contact pt at [phone] documented in this encounter Plan of Treatment Upcoming Encounters Date Type Department Care Team (Late Contact Info) Description 01/29/2025 2:45 PM EDT Clinical Support [facility] CHC MED & PEDS 505 [place] [address] Gracie Riggs, RN 505 [place] [address] 02/20/2025 11:00 AM EDT Office Visit [facility] MED & PEDS 505 [place] [address] Gwen Crook MD [address] [place] [address] documented as of this encounter Visit Diagnoses Not on filedocumented in this encounter Care Teams Siebel Architect Relationship Specialty Start Date End Date Gwen Crook MD [address] [place] [address] PCP - General Family Medicine 11/20/18 documented as of this encounter
--- OUTSIDE RECORDS SUMMARY | 2025-01-16 16:48 | XMS_ITS | Encounter Summary ---
Author Organization [employer] Address [address] [place] [address] 7 [place] [address] Care Team Providers Care Post Graduate Internship Name Role Phone Gwen Crook MD Primary Care Provider [phone] Reason for Visit * Reason Comments Med Refill Encounter Details Date Type Department Care Team ([facility] st Contact Info) Description 03/01/2024 Refill [facility] CHC MED & PEDS [address] [place], [place] [phone] Gwen Crook MD 505 [place] [address] Social History Tobacco Use Types Packs/Day Years [...] 2:45 PM EDT Clinical Support [facility] MED & PEDS [address] [place] [address] Gracie Riggs RN 505 [place] [address] 02/20/2025 11:00 AM EDT Office Visit [facility] MED & PEDS [address] [place] [address] Gwen Crook MD 505 [place] [address] documented as of this encounter Visit Diagnoses Not on filedocumented in this encounter Additional Health Concerns Assessment Noted Time PHQ-9 Depression Total Score: 4 01/20/20 23 11:58 AM EST documented as of this encounter Care Teams Post Graduate Internship Relationship Specialty Start Date End Date Gwen Crook MD [address] [place] [address] PCP - General Family Medicine 11/20/18 documented as of this encounter
--- OUTSIDE RECORDS SUMMARY | 2025-01-16 16:48 | XMS_ITS | Encounter Summary ---
Author Organization [employer] Address [address] [place] [address] 7 [place] [address] Care Team Providers Care Geological Technician Name Role Phone Gwen Crook MD Primary Care Provider [phone] Reason for Visit * Reason Comments Med Change Request Encounter Details Date Type Department Care Team ([facility] Contact Info) Description 01/02/2025 Refill [facility] CHC MED & PEDS [address] [place], [place] [phone] Gwen Crook MD 505 [place] [address] Social History Tobacco Use Types Packs/Day Years [...] Description 01/29/2025 2:45 PM EDT Clinical Support [facility] MED & PEDS [address] [place] [address] Gracie Riggs RN 505 [place] [address] 02/20/2025 11:00 AM EDT Office Visit [facility] MED & PEDS [address] [place] [address] Gwen Crook MD 505 [place] [address] documented as of this encounter Visit Diagnoses Not on filedocumented in this encounter Additional Health Concerns Assessment Noted Time PHQ-9 Depression Total Score: 4 01/20/20 23 11:58 AM EST documented as of this encounter Care Teams Geological Technician Relationship Specialty Start Date End Date Gwen Crook MD 505 [place] [address] PCP - General Family Medicine 11/20/18 documented as of this encounter
--- OUTSIDE RECORDS SUMMARY | 2025-01-16 16:48 | XMS_ITS | Encounter Summary ---
Author Organization [employer] Address [address] [place] [address] 7 [place] [address] Care Team Providers Care Foundation Maker Name Role Phone Gwen Crook MD Primary Care Provider [phone] Reason for Visit * Reason Comments Med Refill Encounter Details Date Type Department Care Team (Late Contact Info) Description 02/20/2023 Refill [facility] MED & PEDS [address] [place] [address] Gwen Crook MD 505 [place] [address] Bilateral primary osteoarthritis of knee Social History Tobacco Use Types Packs/Day Years [...] 01/29/2025 2:45 PM EDT Clinical Support [facility] MED & PEDS [address] [place] [address] Gracie Riggs RN 505 [place], [place] [phone] 02/20/2025 11:00 AM EDT Office Visit [facility] CHC MED & PEDS [address] [place] [address] Gwen Crook MD 505 [place] [address] documented as of this encounter Visit Diagnoses Diagnosis Bilateral primary osteoarthritis of knee documented in this encounter Additional Health Concerns Assessment Noted Time PHQ-9 Depression Total Score: 4 01/20/20 23 11:58 AM EST documented as of this encounter Care Teams Foundation Maker Relationship Specialty Start Date End Date Gwen Crook MD [address] [place] [address] PCP - General Family Medicine 11/20/18 documented as of this encounter
--- OUTSIDE RECORDS SUMMARY | 2025-01-16 16:48 | XMS_ITS | Encounter Summary ---
Author Organization [employer] Address [address] [place] [address] 7 [place] [address] Care Team Providers Care Internal Communications Intern Name Role Phone Gwen Crook MD Primary Care Provider [phone] Reason for Visit * Reason Comments Med Refill Encounter Details Date Type Department Care Team ([facility] st Contact Info) Description 12/16/2024 Refill [facility] CHC MED & PEDS [address] [place], [place] [phone] Gwen Crook MD [address] [place] [address] Social History Tobacco Use Types Packs/Day Years [...] 01/29/2025 2:45 PM EDT Clinical [facility] MED [facility]EDS [address] [place] [address] Gracie Riggs RN 505 [place] [address] 02/20/2025 11:00 AM EDT Office Visit [facility] MED [facility] PEDS [address] [place] [address] Gwen Crook MD [address] [place] [address] documented as of this encounter Visit Diagnoses Not on filedocumented in this encounter Additional Health Concerns Assessment Noted Time PHQ-9 Depression Total Score: 4 01/20/20 23 11:58 AM EST documented as of this encounter Care Teams Internal Communications Intern Relationship Specialty Start Date End Date Gwen Crook MD [address] [place] [address] PCP - General Family Medicine 11/20/18 documented as of this encounter
--- OUTSIDE RECORDS SUMMARY | 2025-01-16 16:48 | XMS_ITS | Encounter Summary ---
Author Organization [employer] Address [address] [place] [address] 7 [place] [address] Care Team Providers Care Oscillograph Technician Name Role Phone Gwen Crook MD Primary Care Provider [phone] Reason for Visit * Reason Comments Med Refill Encounter Details Date Type Department Care Team ([facility] st Contact Info) Description 01/07/2025 Refill [facility] CHC MED & PEDS [address] [place], [place] [phone] Gwen Crook MD [address] [place] [address] Social History Tobacco Use Types Packs/Day Years [...] 2:45 PM EDT Clinical Support [facility] MED & PEDS [address] [place] [address] Gracie Riggs RN 505 [place] [address] 02/20/2025 11:00 AM EDT Office Visit [facility] MED & PEDS 505 [place] [address] Gwen Crook MD [address] [place] [address] documented as of this encounter Visit Diagnoses Not on filedocumented in this encounter Additional Health Concerns Assessment Noted Time PHQ-9 Depression Total Score: 4 01/20/20 23 11:58 AM EST documented as of this encounter Care Teams Oscillograph Technician Relationship Specialty Start Date End Date Gwen Crook MD [address] [place] [address] PCP - General Family Medicine 11/20/18 documented as of this encounter
--- OUTSIDE RECORDS SUMMARY | 2025-01-16 16:48 | XMS_ITS | Encounter Summary ---
Author Organization [employer] Address [address] [place] [address] 7 [place] [address] Care Team Providers Care Home Health Billing Specialist Name Role Phone Gwen Crook MD Primary Care Provider [phone] Reason for Visit * Reason Comments Med Refill Encounter Details Date Type Department Care Team ([facility] st Contact Info) Description 01/02/2025 Refill [facility] CHC MED & PEDS [address] [place], [place] [phone] Gwen Crook MD [address] [place] [address] Social History Tobacco Use Types Packs/Day Years [...] 2:45 PM EDT Clinical Support [facility] MED & PEDS [address] [place] [address] Gracie Riggs RN [address] [place] [address] 02/20/2025 11:00 AM EDT Office Visit [facility] MED & PEDS [address] [place] [address] Gwen Crook MD [address] [place] [address] documented as of this encounter Visit Diagnoses Not on filedocumented in this encounter Additional Health Concerns Assessment Noted Time PHQ-9 Depression Total Score: 4 01/20/20 23 11:58 AM EST documented as of this encounter Care Teams Home Health Billing Specialist Relationship Specialty Start Date End Date Gwen Crook MD [address] [place] [address] PCP - General Family Medicine 11/20/18 documented as of this encounter
--- OUTSIDE RECORDS SUMMARY | 2025-01-16 16:48 | XMS_ITS | Encounter Summary ---
Author Organization [employer] Address [address] [place] [address] 7 [place] [address] Care Team Providers Care Web Assistant Name Role Phone Gwen Crook MD Primary Care Provider [phone] Reason for Visit * Reason Onset Date Comments Med Refill 12/19/2024 Encounter Details Date Type Department Care Team ([facility] st Contact Info) Description 12/19/2024 Refill [facility] CHC MED & PEDS [address] [place], [place] [phone] Gwen Crook MD [address] [place] [address] Social History Tobacco Use Types Packs/Day Years [...] t he electric, gas, oil or water [employer] threatened to shut off services in your [...] Miscellaneous Notes * Telephone Encounter - Lennie Rosa - 12/19/2024 1:42 PM EST TC from pt requesting medication refill. Medications needing refill : methocarbamol (Robaxin) 750 MG tablet To be sent to: [facility] [place], [place] - [address] [place] [address] documented in this encounter Plan of Treatment Upcoming Encounters Date Type Department Care Team (Late st Contact Info) Description 01/29/2025 2:45 PM EDT Clinical Support [facility] MED & PEDS [address] [place] [address] Gracie Riggs, TARAS [address] [place] [address] 02/20/2025 11:00 AM EDT Office Visit [facility] MED & PEDS [address] [place] [address] Gwen Crook MD [address] [place] [address] documented as of this encounter Visit Diagnoses Not on filedocumented in this encounter Additional Health Concerns Assessment Noted Time PHQ-9 Depression Total Score: 4 01/20/20 23 11:58 AM EST documented as of this encounter Care Teams Web Assistant Relationship Specialty Start Date End Date Gwen Crook MD [address] [place] [address] PCP - General Family Medicine 11/20/18 documented as of this encounter
--- OUTSIDE RECORDS SUMMARY | 2025-01-16 16:48 | XMS_ITS | Data Portability ---
Author Organization [employer], [employer] - [employer] Address [address] [place] [phone] Care Team Providers Care Horse Race Starter Name Role Phone [facility] Referring Provider [facility] OTHER Assessment Encounter Date Assessment Date Assessment LastModified by Organization Details LastModified Time 12/11/2024 12/11/2024 I provided real -time medical direction via phone for this encounter and was available for additional phone-based assistance as needed. I have reviewed and agree with the Assessment and Plan as documented by the Machine Compositor. Patient given the opportunity to ask questions. Our service contacted for an assessment of: Swelling of bilateral lower extremities As per above, patient with history of volume overload and peripheral edema as well as multiple other complaints concerning drug interactions for medications prescribed by her PCP. Calls this service for assessment. Is on a diuretic and adherent to all medication regimen. Denies chest pain, shortness of breath, dyspnea on exertion. Does not adhere to a fluid restriction. Does not adhere to a salt restriction. Does not keep legs consistently elevated. Per cafe worker on the scene, vital signs are stable patient is afebrile. Impression and plan: Multiple chronic complaints including swelling of bilateral lower extremities with a chronic presentation. Also questioning multiple drug interactions of medications prescribed by her PCP. Advised this service was unable to answer questions regarding drug interactions. Of the ones she mentioned there are several drug interactions that are potential interactions. Patient has been tolerating these medications and advised to follow-up with PCP. Regarding her lower extremity edema this also is chronic in nature. She is not currently prescribed a diuretic although she has been on 1 in the past. Advised patient to contact PCP to follow-up regarding restart of diuretic. Allergies: Reviewed PCP f/u: We discussed the diagnostic uncertainty of home visits and the risk associated with this. In this case, the patient and I felt this to be an acceptable and reasonable amount of risk given the benefit of avoiding an ED visit. We discussed the need to seek care urgently/emerge ntly in the setting of any new or worsening serious symptoms, particularly fever chills [email or web address] Not available 12/11/2024 20:57:47 Plan of Treatment Reminders Order Date Submit Date Provider Last Modified By Organization Details Last Modified Time Details Appointments None recorded. Lab None recorded. Referral None recorded. Procedures None recorded. Surgeries None recorded. Imaging None recorded. Medication Orders ketorolac 30 mg/mL (1 mL) injection solution 2022 023 [email or web address] Not available 3 18:52:15 Patient TargetsNo targets recorded. Patient InstructionsNo instructions recorded. Reason for Referral None Reported. Medical Equipment None Reported. Allergies Allergen ID Allergen Name Allergen Category Reaction Reaction Severity Criticality Documentation Date Start Date Code Code System Note Provider Name and Address Organization Details Recorded Time 7464 aspirin medicatio n Not available Not available Not available 09/17/2024 1191 RxNorm Not Available [facility] - production 4 03:37:42 Medications Name Sig Start Date Stop Date Status Note LastModified by Organization Details LastModified Time verapamil ER (SR) 120 mg tablet,exten ded release TAKE 1 TABLET BY MOUTH EVERY DAY WITH FOOD active Not Available Not Available No t Available cyclobenzapr ine 10 mg tablet TAKE 1 TABLET BY MOUTH TWICE A DAY NEEDED active Not Available Not Available No t Available furosemide 40 mg tablet TAKE 1 TABLET BY MOUTH EVERY DAY active Not Available Not Available No t Available acetaminophe n 325 mg tablet TAKE 2 TABLETS BY MOUTH EVERY 8 HOURS NEEDED FOR PAIN active Not Available Not Available No t Available doxycycline hyclate 100 mg capsule TAKE 1 CAPSULE BY MOUTH TWICE A DAY FOR 7 DAYS active Not Available Not Available No t Available prednisone 20 mg tablet active Not Available Not Available Not Available cyanocobalam in (vit B-12) 1,000 mcg tablet TAKE 1 TABLET BY MOUTH EVERY DAY ONE DOSE active Not Available Not Available No t Available amlodipine 5 mg tablet TAKE 1 TABLET BY MOUTH EVERY DAY active Not Available Not Available No t Available sulfamethoxa zole 800 mg-trimethop rim 160 mg tablet TAKE 1 TABLET BY MOUTH TWICE A DAY active Not Available Not Available No t Available tramadol 50 mg tablet TAKE 1 TABLET (50 MG) BY MOUTH EVERY 12 (TWELVE) HOURS IF NEEDED FOR SEVERE PAIN. active Not Available Not Available No t Available acetaminophe n 500 mg tablet TAKE 2 TABLETS BY MOUTH EVERY 8 HOURS NEEDED FOR PAIN active Not Available Not Available No t Available hydromorphon e 2 mg tablet active Not Available Not Available Not Available cephalexin 500 mg capsule TAKE 1 CAPSULE BY MOUTH TWICE A DAY active Not Available Not Available No t Available polymyxin B sulfate 10,000 unit-trimeth oprim 1 mg/mL eye drops ADMINISTER 1 DROP INTO BOTH EYES 4 TIMES DAILY FOR 10 DAYS. active Not Available Not Available No t Available diclofenac potassium 50 mg tablet TAKE 1 TABLET BY MOUTH TWICE A DAY NEEDED active Not Available Not Available No t Available omeprazole 20 mg capsule,biju yed release TAKE 1 CAPSULE BY MOUTH TWICE A DAY active Not Available Not Available No t Available epinephrine 0.3 mg/0.3 mL injection, auto-injecto r INJECT 1 PEN SUBCUTANEOU SLY NEEDED FOR SEVERE ALLERGY active Not Available Not Available No t Available cholecalcife rol (vitamin D3) 125 mcg (5,000 unit) capsule TAKE 1 CAPSULE BY MOUTH EVERY DAY active Not Available Not Available No t Available loratadine 10 mg tablet TAKE 1 TABLET BY MOUTH EVERY DAY active Not Available Not Available No t Available naproxen 500 mg tablet TAKE 1 TABLET BY MOUTH TWICE A DAY WITH FOOD NEEDED active Not Available Not Available No t Available oxycodone 5 mg tablet TAKE 1 TAB BY MOUTH EVERY 4-6 HOURS NEEDED , DO NOT DRIVE WHILE TAKING THIS MED active Not Available Not Available No t Available valsartan 160 mg-hydrochlo rothiazide 25 mg tablet TAKE 1 TABLET BY MOUTH EVERY DAY active Not Available Not Available No t Available enoxaparin 40 mg/0.4 mL subcutaneous syringe INJECT 0.4ML SUBCUTANEOU SLY ONCE A DAY TO BEGIN THE DAY AFTER SURGERY FOR 30 DAYS active Not Available Not Available No t Available cholecalcife rol (vitamin D3) 50 mcg (2,000 unit) capsule TAKE 1 CAPSULE BY MOUTH TWICE A DAY active Not Available Not Available No t Available Eliquis 2.5 mg tablet TAKE 1 TABLET BY MOUTH TWICE A DAY active Not Available Not Available No t Available Breo Ellipta 100 mcg-25 mcg/dose powder for inhalation INHALE 1 PUFF BY INHALATION ROUTE EVERY DAY AT THE SAME TIME EACH DAY active Not Available Not Available No t Available naloxone 4 mg/actuation nasal spray ADMINISTER 1 SPRAY INTO ONE NOSTRIL. CALL 911. REPEAT AFTER 2-3 MIN IF NO OR MINIMAL RESPONSE active Not Available Not Available No t Available Vitals Date Recorded Body height Oxygen saturation Oxygen saturation in Arterial blood by Pulse oximetry Heart rate Body temperature Respiratory rate Body weight Systolic blood pressure Diastolic blood pressure Provider Name and Address Organization Details Last Updated DateTime 5 167.64 cm 99 % 99 % 64 /min 98.3 [degF] 16 /min 479831. 92 g 136 mm[Hg] 78 mm[Hg] Not Available [employer] 5 20:11:21 Date Recorded Oxygen saturation Oxygen saturation in Arterial blood by Pulse oximetry Respiratory rate Heart rate Body weight Body temperature Heart rate Respiratory rate Body temperature Body weight Oxygen saturation Oxygen saturation in Arterial blood by Pulse oximetry Systolic blood pressure Diastolic blood pressure Systolic blood pressure Diastolic blood pressure Provider Name and Address Organization Details Last Updated DateTime 3 100 % 100 % 18 /min 76 /min 633921. 88 g 98.6 [degF] 76 /min 18 /min 98.6 [degF] 462371. 88 g 100 % 100 % 156 mm[Hg] 87 mm[Hg] 156 mm[Hg] 87 mm[Hg] Not Available [employer] 3 19:07:01 Social History None recorded. Functional Status None recorded. Mental Status None recorded. Family History Nothing Reported. Medical History No medical history recorded. Gynecological HistoryNo gynecological history recorded. Obstetrics History GPAL:G 0 P 0 0 0 0 Past Encounters Encounter ID Performer Location Encounter Start Date Encounter Closed Date Diagnosis/Indication Diagnosis SNOMED-CT Code Diagnosis ICD10 Code Diagnosis Note [id number] Kevin Srinivasan MD [facility] - [facility] [phone] 01/11/2023 18:49:37 01/13/2023 09:32:05 Sciatica 55012123 M54.32 She reports a sharp pain that starts in her buttock and radiates down her leg, worsened when sitting on the area, consistent with her known sciatica. Reports relief with ketorolac previously , not taking any of her anti-infla mmatory medication s. Reports no known kidney problems. [place]ouraged [place]CP [place]-up. [id number] Danay Meyers MD [facility] - [facility] [address] [place] [phone] 12/11/2024 20:11:19 12/11/2024 23:46:05 Swelling of lower leg 511916127 R22.40 Health Concerns Section Related Observation LastModified by Organization Detai ls LastModified Time None Recorded Concern Status LastModified by Organization Details LastModified Time None Recorded Advance Directives Directive None Recorded Payers Encounter Date Sequence Insurance Name Policy Number Policy Linda Covered Member ID Linda Member ID Guarantor Name 01/11/2023 1 [facility] TO 2023 - DUAL ELIGIBLE (MEDICARE REPLACEMENT/ADV ANTAGE - HMO) Simran Murphy [id number] Simran Murphy 12/11/2024 1 [facility] ON OR AFTER 2023 - DUAL ELIGIBLE - HALFWAY OPTIONS AND ONE CARE (MEDICARE REPLACEMENT/ADV ANTAGE - HMO) Simran Murphy [id number] Simran Murphy Notes Date Note Type Note Provider Name and Address Organization Details Recorded Time 01/11/2023 text/html HPI: Patient with history of recent ankle surgery 8 weeks ago. Today woke with bone pain identified in right hip. Malaise and no effect from OTC medications. No fall or injury. .................. .................. .................. .................. .................. .................. .................. ............... [facility] Nursing Assessment: Comments: Review request no further information needed to process visit .................. .................. .................. .................. .................. .................. .................. ............... Machine Compositor Note From Binh Torres: Pt presents A@Ox4. [place] warm and dry. Pt c/o lower right back pain since this morning. Pt sts she has had pain before and it was sciatic pain. Pts also sts she has two herniated disc on her lower back. Pt sts over the counter meds were not working for her pain. Pt sts toradol has worked for her pain in the past. Pt sts where she had surgery on her left foot had swelling however had no complaints. Pt denies CP SOB F/N/V/D. Pt denies urinary symptoms or kidney problems. Baselone vitals assessed and recorded. Vitals stable. [facility] contacted and 30mg toradol IM in left deltoid at 1850. Pt educated on signsd that would indicated the ED. Pt advised to follow up with PCP Machine Compositor Allergies: Aspirin .................. .................. .................. .................. .................. .................. .................. ............... Disposition: Fulfilled Kevin Srinivasan MD [address] [place] [address],[address], [place], [phone], [employer] 01/11/2023 19:12:01 12/11/2024 text/html HPI: Call returned to Simran Murphy to triage below. Reports having mid lower back pain x 2 weeks. Denies any injury or fall. Pt reports having bilateral leg pain. Denies any redness or rash. Reports having swelling from the knee down. Per pt swelling does not always improve with elevation. Denies any swelling of upper extremities or face. No SOB. Pt is taking Diovan as instructed. States also has noticed day time drowsiness. Pt offered appt today, states unable to come in due to pain and swelling. Agrees to inSTED eval for Bilateral LLE. Confirmed demographics and allergies. .................. .................. .................. .................. .................. .................. .................. ............... [facility] Nurse Triage Notes (Clau Howe - RN): Chief Complaints: Swelling PMH: Hypertension, Chronic Back Pain, Obesity PMH Reviewed at 12/11/2024 14:16 Allergies Reviewed at 12/11/2024 - 14:16 Comments: HPI reviewed .................. .................. .................. .................. .................. .................. .................. ............... Machine Compositor Note From Dane Bill: [facility] visit for female pt. Pt presents sitting on couch complaining of lower back pain. Pt reports history of sciatica and is prescribed robaxin and tylenol with codeine. Pt is generally reluctant with medications concerned about side effects. Pt had palpable right lumbar pain on exam, with findings consistent with muscle spasm. Pt was offered PCP office visit today but could not go due to severe pain. V/S taken as listed. Pt afebrile. Pt notes severe allergy to toradol and NSAIDS. Consulted with [facility] [place]. Meyers who advised pt follow up with PCP. Reviewed medication dosages as listed on prescription bottles with plan for pt to go to PCP or ED tomorrow for pain. Reviewed red flags. Pt education provided. .................. .................. .................. .................. .................. .................. .................. ............... [facility] Consulted: Danay Meyers .................. .................. .................. .................. .................. .................. .................. ............... Disposition: Fulfilled Danay Meyers MD [address] [place] [address],[address], [place], [phone], [employer] 12/11/2024 20:57:57 OBGyn Episode No OBEpisode recorded.
--- OUTSIDE RECORDS SUMMARY | 2025-01-16 16:48 | XMS_ITS | Encounter Summary ---
Author Organization [employer] Address [address] [facility] [address] [place] [address] Care Team Providers Care Armament Repairer Name Role Phone Gwen Crook MD Primary Care Provider Reason for Visit * Reason Onset Date Comments Nurse Triage 01/24/2024 Encounter Details Date Type Department Care Team ([facility] st Contact Info) Description 01/24/2024 Telephone [facility] MED [facility] PEDS [address], [place] [phone] Gwen Crook MD [address] [place] [address] Nurse Triage Social History Tobacco Use Types [...] t he electric, gas, oil or water [email or web address] threatened to shut off services in your [...] encounter Miscellaneous Notes * Telephone Encounter - Radha Stein RN - 01/24/2024 1:15 PM EST Triage call with [employer] Specialist ID [id number] Pt reports uses a walker for walking and for last 2 weeks has had shoulder and neck pain. Pt reports Covid + 2 weeks ago as well. Pt is advised to give more time to recover from effects of Covid. Pt is requesting refill of tramadol which has been effective for pain relief. Pt is also requesting a referral to GI for colonoscopy Pt let last referral . Pt is advised to increase liquids to 6- 8 glasses daily, ambulate as much as possible. Pt is advised will send this request for referral and tramadol refill to PCP and [facility] nursing team for follow up. Pt agrees with disposition and plan. Protocol Used: Muscle Aches and Body Pain (Adult) Protocol-Based Disposition: Home Care Positive Triage Question: * Mild pain (e.g., does not interfere with normal activities) and present < 7 days * All higher-acuity triage questions were negative Care Advice Discussed: * Reassurance and Education - Mild Muscle Pain * Pain Medicines * Pain Medicines - Extra Notes and Warnings * Reasons To Call Back - Fever occurs - Pain lasts longer than 7 days - You become worse * Telephone Encounter - Lennie Melara - 01/24/2024 11:16 AM EST Symptom: Body pain and trouble walking Outcome: Schedule an appointment to be seen within 3 days Reason: Caller denied all higher acuity questions The caller accepted this outcome documented in this encounter Plan of Treatment Upcoming Encounters Date Type Department Care Team (Late st Contact Info) Description 01/29/2025 2:45 PM EDT Clinical Support [facility] MED & PEDS [address] [place] [address] Gracie Riggs RN [address] [place] [address] 02/20/2025 11:00 AM EDT Office Visit [facility] MED & PEDS [address] [place] [address] Gwen Crook MD [address] [place] [address] documented as of this encounter Visit Diagnoses Not on filedocumented in this encounter Additional Health Concerns Assessment Noted Time PHQ-9 Depression Total Score: 4 01/20/20 23 11:58 AM EST documented as of this encounter Care Teams Armament Repairer Relationship Specialty Start Date End Date Gwen Crook MD [address] [place] [address] PCP - General Family Medicine 11/20/18 documented as of this encounter
--- OUTSIDE RECORDS SUMMARY | 2025-01-16 16:48 | XMS_ITS | Clinical Summary ---
Author Organization [employer] Address [address] [place] [address] 7t [place] [address] Care Team Providers Care District Court Administrator Name Role Phone Gwen Crook MD Primary Care Provider [phone] Allergies Active Allergy Reactions Criticality Noted Date Comments Aspirin Hives 01/24/2011 Medications * This document contains information received from the source organization and may not represent a complete record from that organization. EPINEPHrine (Epipen) 0.3 MG/0.3ML injection syringeIndicatio ns:Allergic reaction, subsequent encounter INJECT 1 PEN SUBCUTANEOUSLY NEEDED FOR SEVERE ALLERGY 1 each 3 023 Active Breo Ellipta 100-25 MCG/ACT aerosol powder INHALE 1 PUFF BY INHALATION ROUTE EVERY DAY AT THE SAME TIME EACH DAY Active cholecalciferol (Vitamin D-3) 125 MCG (5000 UT) capsule Take 125 mcg by mouth in the morning. 022 Active Acetaminophen Extra Strength 500 MG tablet TAKE 2 TABLETS BY MOUTH EVERY 8 HOURS NEEDED FOR PAIN 022 Active sucralfate (Carafate) 1 g tablet Take 1 g by mouth 4 times daily. 023 Active loratadine (Claritin) 10 MG tabletIndication s:Allergic reaction, subsequent encounter TAKE 1 TABLET BY MOUTH EVERY DAY 90 tablet 3 023 Active albuterol (ProAir HFA) 108 (90 Base) MCG/ACT inhaler TAKE 2 PUFFS BY MOUTH EVERY 4 6 HOURS NEEDED COUGH ASTHMA 18 g 1 024 Active triamcinolone (Kenalog) 0.5 % ointment Apply topically 2 times daily. 30 g 3 024 2024 Active Semaglutide-Weig ht Management (Wegovy) 0.25 MG/0.5ML solution auto-injectorInd ications:Class 3 severe obesity due to excess calories with serious comorbidity and body mass index (BMI) of 40.0 to 44.9 in adult (CMS/HCC),Primar y hypertension Inject 0.25 mg under the skin 1 (one) time per week. 0.5 mL 11 Active cholecalciferol (D3 Super Strength) 50 MCG (2000 UT) capsule TAKE 1 CAPSULE BY MOUTH EVERY DAY 90 capsule 25 024 Active famotidine (Pepcid) 20 MG tablet TAKE 1 TABLET BY MOUTH TWICE A DAY 180 tablet 1 024 Active cyanocobalamin (Vitamin B-12) 1000 MCG tablet TAKE 1 TABLET BY MOUTH EVERY DAY 90 tablet 3 024 Active valsartan-hydroC HLOROthiazide (Diovan-HCT) 80-12.5 MG tablet TAKE 1 TABLET BY MOUTH EVERY DAY 90 tablet 3 025 Active loratadine (Claritin) 10 MG tablet TAKE 1 TABLET BY MOUTH EVERY DAY 90 tablet 2 025 Active albuterol 108 (90 Base) MCG/ACT inhaler INHALE 2 PUFFS EVERY 6 HOURS IF NEEDED FOR WHEEZING. 18 g 1 025 Active diazePAM (Valium) 2 MG tablet TAKE 1 TABLET (2 MG) BY MOUTH IF NEEDED AT BEDTIME FOR ANXIETY. 30 tablet 025 2024 Active acetaminophen-co deine (Tylenol w/ Codeine #3) 300-30 MG tabletIndication s:Lumbar disc herniation with radiculopathy TAKE 1 TABLET BY MOUTH EVERY 6 HOURS NEEDED FOR SEVERE PAIN 30 tablet 025 Active omeprazole (PriLOSEC) [address] capsule TAKE 1 CAPSULE BY MOUTH TWICE A DAY 180 capsule 2 025 Active baclofen (Lioresal) 5 MG tablet Take 1 tablet (5 mg) by mouth 3 times daily. 90 tablet 1 025 Active loratadine (Claritin) 10 MG tablet take 1 tablet (10MG) by oral route every day 022 2024 Discontinued omeprazole (PriLOSEC) [address] capsule TAKE 1 CAPSULE BY MOUTH TWICE A DAY 180 capsule 3 023 2024 Discontinued valsartan-hydroC HLOROthiazide (Diovan HCT) 80-12.5 MG tablet Take 1 tablet by mouth Once per day. 30 tablet 11 024 2024 Discontinued diazePAM (Valium) 2 MG tablet TAKE 1 TABLET (2 MG) BY MOUTH IF NEEDED AT BEDTIME FOR ANXIETY. 30 tablet 024 2024 Discontinued methocarbamol (Robaxin) 750 MG tablet TAKE 1 TABLET BY MOUTH TWICE A DAY 30 tablet 2 024 2024 Discontinued(R eorder (will not trigger notification to Pharmacy)) Ventolin HFA 108 (90 Base) MCG/ACT inhaler INHALE 2 PUFFS EVERY 6 HOURS IF NEEDED FOR WHEEZING. 18 g 1 024 2024 Discontinued acetaminophen-co deine (Tylenol w/ Codeine #3) 300-30 MG tabletIndication s:Lumbar disc herniation with radiculopathy TAKE ONE TABLET EVERY 6 HOURS NEEDED FOR SEVERE PAIN 30 tablet 025 2024 Discontinued methocarbamol (Robaxin) 750 MG tablet Take 1 tablet (750 mg) by mouth 2 times daily. 30 tablet 2 025 2024 Discontinued tiZANidine (Zanaflex) 4 MG tablet Take 1 tablet (4 mg) by mouth every 8 (eight) hours if needed for muscle spasms. 60 tablet 025 2024 Discontinued(S desean effects) Active Problems Problem Noted Date Diagnosed Date GERD (gastroesophageal reflux disease) 4 Acute bacterial conjunctivitis of both eyes 11/20 Assessment & Plan (11/29/2022 9:41 AM EST): Patient refers symptoms started, last Monday, refers having crusting, and discharge, refers her granddaughter having similar symptoms a few days before. Irwin prescribe eye drop antibiotics, in case of change in vision told to visit er. 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 MED & PEDS [address] [place] [address] Gwen Crook MD Prediabetes (Primary Dx); Neck pain, bilateral posterior 01/16/2025 Travel 01/07/[address] [facility] MED & PEDS [address] [place] [address] Gwen Crook MD 01/02/[address] [facility] MED & PEDS [address] [place] [address] Gwen Crook MD 01/02/2025 Refill [facility] MED & PEDS [address] [place] [address] Petros Norris MD Lumbar disc herniation with radiculopathy 01/02/2025 Refill [facility] MED & PEDS [address] [place] [address] Gwen Crook MD 01/01/2025 Patient Outreach [facility] MED & PEDS [address] [place] [address] Gwen Crook MD Care Coordination ([facility] outreach for [facility] utilities and food needs-referral completed /) 01/01/2025 Patient Outreach [facility] MEDICINE [address] [place] [address] Gwen Crook MD Pre-visit Planning (SDOH screening positive and Tobacco screening negative) 12/21/[address] [facility] CHC MED & PEDS [address] [place] [address] Gwen Crook MD 12/20/2024 Refill [facility] MED & PEDS [address] [place] [address] Gwen Crook MD 12/19/2024 Refill [facility] MED & PEDS [address] [place] [address] Gwen Crook MD 12/19/[address] [facility] MED & PEDS [address] [place] [address] Gwen Crook MD 12/16/[address] [facility] MED & PEDS [address] [place] [address] Gwen Crook MD 12/11/[address] [facility] MEDICINE [address] [place] [address] Gwen Crook MD Nurse Triage 12/10/[address] [facility] MED & PEDS [address] [place] [address] Gwen Crook MD Lumbar disc herniation with radiculopathy 12/02/2024 Orders Only [facility] MED & PEDS [address] [place] [address] ProviderOwen MD 11/14/2024 1:30 PM EST Clinical Support [facility] MED & PEDS [address] [place] [address] Gracie Riggs, TARAS Bilateral primary osteoarthritis of knee 11/14/2024 Travel 11/11/[address] [facility] MED & PEDS [address] [place] [address] Gwen Crook MD Lumbar disc herniation with radiculopathy 11/03/[address] [facility] MED & PEDS [address] [place] [address] Paige Juares MD from Last 3 Months Immunizations Name Administration Dates Next Due Influenza injectable quadriv alent IIV4 with preservative 01/19/2023 Influenza injectable quadrivalent preservative f ree 11/18/2016 Influenza, IIV3, injectable 08/20/2014 Influenza, Split (incl. purified surface antigen ) 08/06/2013 Tdap 11/18/2016 Social History Tobacco Use Types Packs/Day Years Used Date Smoking Tobacco: Never Passive Smoke Exposure: Never Smokeless Tobacco: Never Tobacco Cessation:Counseling Given: Not Answered Depression Answer Date Recorded Patient Health Questionnaire-9 [...] not to disclose 2021 10:19 AM EDT Last Filed Vital Signs Vital Sign Reading [...] Mass Index 46.34 01/16/2025 1:28 PM EST Plan of Treatment Upcoming Encounters Date Type Department Care Team ([facility] st Contact Info) Description 01/29/2025 2:45 PM EDT Clinical Support [facility] MED & PEDS [address] [place] [address] Gracie Riggs, TARAS [address] [place] [address] 02/20/2025 11:00 AM EDT Office Visit [facility] MED & PEDS [address] [place] [address] Gwen Crook MD [address] [place] [address] Health Maintenance Due Date Last Done Comments CT Colonography 1969 Colonoscopy 1969 FIT 1969 FOBT 1969 HIV Screening 1969 Sigmoidoscopy 1969 Hepatitis C Screening 1987 Hepatitis B Vaccines (1 of 3 - 19+ 3-dose series) 1988 Pneumococcal Vaccine: 50+ Years (1 of 2 - PCV) 1988 HPV/Cotest 1999 Mammogram 2009 Zoster Vaccines (1 of 2) 2019 Depression Screening 01/20/2024 01/19/2023, 01/20/20 23 COVID-19 Vaccine ( - season) 2024 Influenza Vaccine (#1) 2024 , 11/18/2016, 08/20/2014, Additional history exists Diabetes: Hemoglobin A1C 03/20/2025 024, 09/21/2022, 11/04/2020 Tobacco Screening 07/02/2025 07/02/2024 SDOH Screening 01/01/2026 01/01/2025 Alcohol/Substance Use Screening 01/16/2026 01/16/2025 DTaP/Tdap/Td Vaccines (2 - Td or Tdap) 11/18/2026 11/18/2016 Colorectal Cancer Screening 03/26/2027 FIT DNA/Cologuard 03/26/2027 03/26/2024 Cervical Cancer Screening 07/30/2027 Pap Smear 07/30/2027 07/30/2024, 07/30/2024 Lipid Panel 03/20/2029 03/20/2024, 11/04/2020 RSV Patients and Patients Aged 60 years or older (1 - 1-dose 75+ series) 2044 HIB Vaccines Aged Out No longer eligi [...] patient's age to complete this topic Meningococcal Vaccine Aged Out No ashley ángel eligible based on patient's age to complete this topic RSV under 20 months Aged Out No longe r eligible based on patient's age to complete this topic Rotavirus Vaccines Aged Out No longer eligible based on patient's age to complete this topic Procedures Procedure Name Priority Date/Time Associated Diagnosis Comments POCT JOBY-14 URINE DRUG SCREEN Routine 11/14/2024 2:01 PM EST Bilateral primary osteoarthritis of knee ALBUMIN/CREATININE RATIO, RANDOM URINE Routine 11/06/2024 3:25 PM EST THINPREP IMAGING SYSTEM PAP Routine 07/30/2024 2:17 PM EDT Encounter for gynecological examination with Papanicolaou smear of cervix LAB COLOGUARD?? COLON CANCER SCREEN Routine 03/26/2024 3:45 PM EDT Primary hypertension Severe obesity (CMS/HCC) Bilateral post-traumatic osteoarthritis of knee HEMOGLOBIN A1C Routine 03/20/2024 9:34 AM EDT Primary hypertension Severe obesity (CMS/HCC) Bilateral post-traumatic osteoarthritis of knee LIPID PANEL, STANDARD Routine 03/20/2024 9:34 AM EDT Primary hypertension Severe obesity (CMS/HCC) Bilateral post-traumatic osteoarthritis of knee from Last 3 Months or Most Recently Relevant to Health Maintenance Results * POCT JOBY-14 Urine Drug Screen (11/14/2024 2:01 PM EST) Opiate Screen, Urine Positive Benzodiazepines Screen, Urine Positive Urine Urine specimen obtained by clean catch procedure / Unknown 11/14/2024 2:01 PM EST Narrative OtfteaganGracie, RN - 11/14/2024 2:01 PM EST Lot# [id number] Exp: 10-26-25 Gwen Crook MD POINT OF CARE TEST ENTER/EDIT ORDERABLES Final Result * Albumin/Creatinine Ratio, Random Urine (11/06/2024 3:25 PM EST) Urine (Urine, Random) Historical Provider LAB URINE ORDERABLES Maribell l Result * Pap Smear (07/30/2024 2:17 PM EDT) SOURCE: SEE NOTE [facility] Comment:None given Report Status: [facility] Clinical Information: SEE NOTE [facility] Comment:None given LMP: SEE NOTE [facility] Comment:NONE GIVEN Prev. PAP: SEE NOTE [facility] Comment:NONE GIVEN Prev. BX: SEE NOTE [facility] Comment:NONE GIVEN Statement Of Adequacy: SEE NOTE [facility] Comment:Satisfactory for carmen luation.Endocervical/transformation zone component absent. General Categorization: [facility] Interpretation/Result: SEE [facility] Comment:Cytology Results: Ne gative for intraepitheliallesion or malignancy. Cytology Comment SEE NOTE [facility] Comment:This Pap test has be en evaluated with computerassisted technology. Brick Wheeler: SEE NOTE [facility] Comment:RPR, CT (ASCP) CT sc reening location: [place] [address] Review Brick Wheeler: [facility] Pathologist [facility] PAP Infection [facility] See Note SEE [facility] Comment:EXPLANATORY NOTE:The Pap is a screening test for cervical cancer. It isnot a diagnostic test and is subject to false negativeand false positive results. It is most reliable when asatisfactory sample, regularly obtained, is submittedwith relevant clinical findings and history, and whenthe Pap result is evaluated along with historic andcurrent clinical information.THIS TEST WAS PERFORMED AT:[facility] [place] [id number] SEVILLA MD Pap Vial Vaginal structure / Unknown 07/30/2024 2:17 PM EDT 07/30/2024 5:40 PM EDT Narrative [facility] - 08/05/2024 1:08 PM EDT SEE SCANNED RESULTS IN EMR us Gwen Crook MD LAB PATHOLOGY ORDERABLES Maribell yarbrough Result [facility] [address] [place] [address] [phone] * Cologuard?? colon cancer screening (03/26/2024 3:45 PM EDT) Cologuard Result Negative Negative 04/02/20 10:19 AM EDT [facility] (CLIA #:[id number]) Comment: NEGATIVE TEST RESULT. A negative Cologuard result indicates a low likelihood that a colorectal cancer (CRC) or advanced adenoma (adenomatous polyps with more advanced pre-malignant features) ??is present. The chance that a person with a negative Cologuard test has a colorectal cancer is less than 1 in 1500 (negative predictive value >99.9%) or has an ??advanced adenoma is less than ??5.3% (negative predictive value 94.7%). These data are based on a prospective cross-sectional study of 10,000 individuals at average risk for colorectal cancer who were screened with both Cologuard and colonoscopy. (Cristina Wagner et al, N Engl J Med 2014;370(14):1286- 1297) The normal value (reference range) for this assay is negative. COLOGUARD RE-SCREENING RECOMMENDATION: Periodic colorectal cancer screening is an important part of preventive healthcare for asymptomatic individuals at average risk for colorectal cancer. ??Following a negative Cologuard result, the [place] Cancer Society and U.S. Multi-Society Task Force screening guidelines recommend a Cologuard re-screening interval of 3 years. References: [place] Cancer Society Guideline for Colorectal Cancer Screening: https://www.cancer.org/cancer/przmy-dzzlhg-mvikur/btkuzeipk-adtitszzh-aflmhur/ac s-rec ommendations.html.; Janes DK, Abrahan TORRES, Humberto MUÑOZ, Colorectal Cancer Screening: Recommendations for Physicians and Patients from the U.S. Multi-Society Task Force on Colorectal Cancer Screening , Am J Gastroenterology 2017; 112:4104-0683. TEST DESCRIPTION: Composite algorithmic analysis of stool DNA-biomarkers with hemoglobin immunoassay. ?? Quantitative values of individual biomarkers are not reportable and are not associated with individual biomarker result reference ranges. Cologuard is intended for colorectal cancer screening of adults of either sex, 45 years or older, who are at average-risk for colorectal cancer (CRC). Cologuard has been approved for use by the U.S. FDA. The performance of Cologuard was established in a cross sectional study of average-risk adults aged 50-84. Cologuard performance in patients ages 45 to 49 years was estimated by sub-group analysis of near-age groups. Colonoscopies performed for a positive result may find as the most clinically significant lesion: colorectal cancer [4.0%], advanced adenoma (including sessile serrated polyps greater than or equal to 1cm diameter) [20%] or non- advanced adenoma [31%]; or no colorectal neoplasia [45%]. These estimates are derived from a prospective cross-sectional screening study of 10,000 individuals at average risk for colorectal cancer who were screened with both Cologuard and colonoscopy. (Cristina Matos al, N Engl J Med 2014;370(14):2423-0087.) Cologuard may produce a false negative or false positive result (no colorectal cancer or precancerous polyp present at colonoscopy follow up). A negative Cologuard test result does not guarantee the absence of CRC or advanced adenoma (pre-cancer). The current Cologuard screening interval is every 3 years. ([employer] Cancer Society and U.S. Multi-Society Task Force). Cologuard performance data in a 10,000 patient pivotal study using colonoscopy as the reference method can be accessed at the following location: www.Axxana/results. Additional description of the Cologuard test process, warnings and precautions can be found at www.colSevenpoprd.com. Stool specimen (specimen) 03/26/2024 3:45 PM EDT 03/27/2024 11:04 AM EDT Gwen Crook MD LAB MOLECULAR DIAGNOSTICS ORD ERABLES Final Result [facility] (CLIA #:[id number]) [place] [address], * Hemoglobin A1c (03/20/2024 9:34 AM EDT) Hemoglobin A1c 5.9 <6.0 % [facility] Comment:Hemoglobin A1C Refer ence Range Adults: 4.8 - 6.0 % Non diabetic: < 6.0 % Goal: < 7.0 %Additional Action Suggested: > 8.0 %Note: Hemoglobin A1c results are invalid for patients with abnormal amounts of HbF. Blood transfusions may impact the HbA1c concentration in the patient sample. Estimated Average Glucose 123 mg/dL [facility] Comment:eAG = Estimated ave rage glucose which is %A1C expressed asaverage glucose, using the formula of the A6E-LoxzvceWkjwjfv Glucose study (ADAG), Diabetes Care, Vol.31,#8,Jun. 2007 Blood Venous blood specimen / Unknown 03/20/2024 9:34 AM EDT 03/20/2024 2:24 PM EDT Gwen Crook MD LAB BLOOD ORDERABLES Final Re sult [facility] [address] [place] [address] [phone] * (ABNORMAL) Lipid Panel, Standard (03/20/2024 9:34 AM EDT) Triglycerides 84 <150 mg/dL [facility] Comment:Desirable Triglyceri de: less than 150 mg/dLBorderline High Triglyceride 150-199 mg/dLHigh Triglyceride: 200-499 mg/dLVery High Triglyceride: greater than or equal to 5OO mg/dL Cholesterol 183 <200 mg/dL [facility] Comment:Desirable Cholestero l: less than 200 mg/dLBorderline High Cholesterol: 200-239 mg/dLHigh Cholesterol: greater than 239 mg/dL LDL Cholesterol Calculated 105(H) <100 mg/dL [facility] Comment:Desirable LDL: less than 100 mg/dLNear Optimal/Above Optimal LDL: 110- 129 mg/dLBorderline High LDL: 130-159 mg/dLHigh LDL: 160-189 mg/dLVery High LDL: greater than or equal to 190 mg/dL HDL Cholesterol 62 >40 mg/dL [facility] Comment:Desirable HDL: great er than 40 mg/dL Note: This HDL assay may give artificially low results in patients with liver disease. Blood Venous blood specimen / Unknown 03/20/2024 9:34 AM EDT 03/20/2024 2:28 PM EDT us Gwen Crook MD LAB BLOOD ORDERABLES Final Re sult [facility] [address] [place] [phone] from Last 3 Months or Most Recently Relevant to Health Maintenance [place] [address] [address] - [employer] Care Teams District Court Administrator Relationship Specialty Start Date End Date Gwen Crook MD [address] [place] [phone] PCP - General Family Medicine 11/20/18
[2025-01-16 18:22] LABS: MANUAL DIFF FLAG NO
[2025-01-16 18:31] LABS: Basophils Percent Auto 0.3 % (0-2); Eosinophils Absolute Auto 0.1 X10*3/uL (0.0-0.4); Eosinophils Percent Auto 2.3 % (0-4); Hematocrit 37.9 % (37.0-47.0); Hemoglobin 12.7 g/dl (12.0-16.0); Imm Gran Abs Auto 0.01 X10*3/uL (0.00-0.03); Imm Gran Pct Auto 0.2 % (0.0-0.4); Lymphocytes Absolute Auto 1.9 X10*3/uL (1.2-4.9); Lymphocytes Percent Auto 33.5 % (20-40); Mean Corpuscular HGB Conc 33.5 g/dl (31.0-35.0); Mean Corpuscular Hemoglobin 31.1 pg (27.0-33.0); Mean Corpuscular Volume 92.9 fL (80.0-98.0); Mean Platelet Volume 10.3 fL (9.4-12.3); Monocytes Absolute Auto 0.5 X10*3/uL (0.1-1.2); Monocytes Percent Auto 8.2 % (2-11); Neutrophils Absolute Auto 3.2 x10*3/uL (2.0-8.3); Neutrophils Percent Auto 55.5 % (45-73); Platelet Count 220 X10*3/uL (160-400); Red Blood Count 4.08 X10*6/uL (4.20-5.50); Red Cell Distribution Width 12.4 % (11.0-16.0); White Blood Count 5.8 X10*3/uL (4.8-10.8)
[2025-01-16 18:44] LABS: Estimated Average Glucose 114 mg/dL; Hemoglobin A1c % 5.6 % (<6.0)
[2025-01-16 18:47] LABS: Alanine Aminotransferase 22 U/L (0-31); Albumin Level 4.2 g/dL (3.5-5.0); Alkaline Phosphatase 77 U/L (39-117); Anion Gap 12 (12-20); Aspartate Amino Transferase 24 U/L (5-31); Bilirubin Total 0.3 mg/dL (0.0-1.0); Blood Urea Nitrogen 19 mg/dL (9-16); Calcium 9.4 mg/dL (8.4-10.2); Carbon Dioxide 28 mmol/L (22-29); Chloride 105 mmol/L (96-108); Estimated Glomerular Filt Rate > 60; Glucose Random 93 mg/dL (60-115); Potassium 3.8 mmol/L (3.3-5.1); Sodium 141 mmol/L (135-145); Total Protein 7.4 g/dL (6.5-8.0)
[2025-01-16 19:06] LABS: Erythrocyte Sedimentation Rate 12 MM/HR (0-20)
[2025-01-16 19:28] LABS: Folate 13.3 ng/mL (> or = 4.0); Vitamin B12 1002 pg/mL (200-900)
== END 2025-01-16 13:55 | disposition home or self-care (01) ==
LOC: HO.CHCLDS 13:54
PROVIDERS: Visit Provider Pediatrics
DX: R73.03 Prediabetes (principal)
CPT/HCPCS: 36415; 80053; 82607; 82746; 83036; 84443; 85025; 85652

== ENCOUNTER 2025-01-24 15:32 | Outpatient (REF) | payer OTHER, SELFPAY ==
--- NOTE | ~2025-01-24 | XR_ITS ---
EXAMINATION: XR CERVICAL SPINE CLINICAL INFORMATION: neck pain with radiculopathy COMPARISON: None available. TECHNIQUE: 6 views of the cervical spine, inclusive of flexion and extension views, were obtained. FINDINGS: Craniocervical junction is intact. Marginal osteophyte formation and endplate sclerosis decreased intervertebral disc height C5-6 and to a lesser extent C4-5 and C6-7 levels. No acute cortical disruption or gross malalignment. Right neuroforamina narrowing at C2-3 secondary to osteophyte formation. The upper airway is patent. XR/XR cervical spine 4V IMPRESSION: Multilevel cervical spondylosis more conspicuous at C5-6 and to a lesser extent C4-5 and C6-7 levels. Electronically signed by: Abraham Barnard MD 01/27/2025 03:58 PM EDT
--- OUTSIDE RECORDS SUMMARY | 2025-01-24 17:02 | XMS_ITS | Encounter Summary ---
Author Organization [employer] Address [address] [place] [address] 7 [place] [address] Care Team Providers Care Insurance Attorney Name Role Phone Gwen Crook MD Primary Care Provider [phone] Reason for Visit * Reason Onset Date Comments Med Refill 10/14/2024 Encounter Details Date Type Department Care Team ([facility] st Contact Info) Description 10/14/2024 Refill [facility] CHC MED & PEDS [address] [place], [place] [phone] Gwen Crook MD [address] [place] [address] Lumbar disc herniation with radiculopathy Social History [...] 30 MG tablet To be sent to: [facility] - [place], [place] - [address] [place] [address] documented in this encounter Plan of Treatment Upcoming Encounters Date Type Department Care Team (Late st Contact Info) Description 01/29/2025 2:45 PM EDT Clinical Support [facility] MED & PEDS [address] [place] [address] Gracie Riggs RN [address] [place] [address] 02/20/2025 11:00 AM EDT Office Visit [facility] MED & PEDS [address] [place] [address] Gwen Crook MD [address] [place] [address] documented as of this encounter Visit Diagnoses Diagnosis Lumbar disc herniation with radiculopathy Displacement of lumbar intervertebral disc without myelopathy documented in this encounter Additional Health Concerns Assessment Noted Time PHQ-9 Depression Total Score: 4 01/20/20 23 11:58 AM EST documented as of this encounter Care Teams Insurance Attorney Relationship Specialty Start Date End Date Gwen Crook MD [address] [place] [address] PCP - General Family Medicine 11/20/18 documented as of this encounter
--- OUTSIDE RECORDS SUMMARY | 2025-01-24 17:02 | XMS_ITS | Encounter Summary ---
Author Organization [employer] Address [address] [place] [address] [address] [place] [address] Care Team Providers Care Farm Product Purchaser Name Role Phone Gwen Crook MD Primary Care Provider [phone] Reason for Visit * Reason Comments Med Refill Encounter Details Date Type Department Care Team ([facility] st Contact Info) Description 01/02/2025 Refill [facility] CH[facility] MED & PEDS [address] [place], [place] [phone] Petros Norris MD [address] [place] [address] Lumbar disc herniation with radiculopathy Social History [...] Upcoming Encounters Date Type Department Care Team ([facility] st Contact Info) Description 01/29/2025 2:45 PM EDT Clinical Support [facility] MED & PEDS [address] [place] [address] Gracie Riggs RN [address] [place] [address] 02/20/2025 11:00 AM EDT Office Visit [facility] MED & PEDS [address] [place] [address] Gwen Crook MD [address] [place] [address] documented as of this encounter Visit Diagnoses Diagnosis Lumbar disc herniation with radiculopathy Displacement of lumbar intervertebral disc without myelopathy documented in this encounter Additional Health Concerns Assessment Noted Time PHQ-9 Depression Total Score: 4 01/20/20 23 11:58 AM EST documented as of this encounter Care Teams Farm Product Purchaser Relationship Specialty Start Date End Date Gwen Crook MD [address] [place] [address] PCP - General Family Medicine 11/20/18 documented as of this encounter
--- OUTSIDE RECORDS SUMMARY | 2025-01-24 17:02 | XMS_ITS | Encounter Summary ---
Author Organization [employer] Address [address] [place] [address] [address] [place] [address] Care Team Providers Care Hat Cleaner Name Role Phone Gwen Crook MD Primary Care Provider [phone] Reason for Visit * Reason Comments Med Refill Encounter Details Date Type Department Care Team ([facility] st Contact Info) Description 01/07/2025 Refill [facility] CHC MED & PEDS [address] [place], [place] [phone] Gwne Crook MD [address] [place] [address] Social History Tobacco Use Types Packs/Day Years [...] [facility] MED & PEDS [address] [place] [address] Gracie Riggs RN [address] [place] [address] 02/20/2025 11:00 AM EDT Office Visit [facility] MED & PEDS [address] [place] [address] Gwen Crook MD [address] [place] [address] documented as of this encounter Visit Diagnoses Not on filedocumented in this encounter Additional Health Concerns Assessment Noted Time PHQ-9 Depression Total Score: 4 01/20/20 23 11:58 AM EST documented as of this encounter Care Teams Hat Cleaner Relationship Specialty Start Date End Date Gwen Crook MD [address] [place] [address] PCP - General Family Medicine 11/20/18 documented as of this encounter
--- OUTSIDE RECORDS SUMMARY | 2025-01-24 17:02 | XMS_ITS | Encounter Summary ---
Author Organization [employer] Address [address] [place] [address] 7 [place] [address] Care Team Providers Care Offset Label Rewinder Name Role Phone Gwen Crook MD Primary Care Provider [phone] Reason for Visit * Reason Onset Date Comments Durable Medical Equipment 01/21/2025 Encounter Details Date Type Department Care Team ([facility] st Contact Info) Description 01/21/2025 Telephone [facility] CH[facility] MED & PEDS [address] [place], [place] [phone] Gwen Crook MD [address] [place] [address] Durable Medical Equipment Social History Tobacco Use Types Packs/Day Years [...] encounter Miscellaneous Notes * Telephone Encounter - Fauzia Gifford LPN - 01/21/2025 10:06 AM EST DME for Walker signed and faxed to Latricia . Confirmation received and sent to scan. If patient calls to check status on above, please advise them to contact Latricia at [phone] . ----- Message from Gwen Crook MD sent at 01/19/2025 12:10 PM EST ----- Hayes farr, this patient has been using a walker for years due to chronic lymphedema, morbid obesity,etc.. , her seat is now broken and needs a new one.Thanks documented in this encounter Plan of Treatment Upcoming Encounters Date Type Department Care Team ([facility] st Contact Info) Description 01/29/2025 2:45 PM EDT Clinical Support [facility] MED & PEDS [address] [place] [address] Gracie Riggs, RN [address] [place] [address] 02/20/2025 11:00 AM EDT Office Visit [facility] MED & PEDS [address] [place] [address] Gwen Crook MD [address] [place] [address] documented as of this encounter Visit Diagnoses Not on filedocumented in this encounter Additional Health Concerns Assessment Noted Time PHQ-9 Depression Total Score: 4 01/20/20 23 11:58 AM EST documented as of this encounter Care Teams Offset Label Rewinder Relationship Specialty Start Date End Date Gwen Crook MD [address] [place] [address] PCP - General Family Medicine 11/20/18 documented as of this encounter
--- OUTSIDE RECORDS SUMMARY | 2025-01-24 17:02 | XMS_ITS | Encounter Summary ---
Author Organization [employer] Address [address] [place] [address] [place] [address] Care Team Providers Care Code Clerk Name Role Phone Gwen Crook MD Primary Care Provider [phone] Reason for Visit * Reason Onset Date Comments Appointment Request 11/28/2022 Encounter Details Date Type Department Care Team ([facility] Contact Info) Description 11/28/2022 Telephone [facility] MEDICINE [address] [place], [place] [phone] Gwen Crook MD [address] [place] [address] Appointment Request Social History Tobacco Use Types [...] requesting to r/s appt 11/29/22 at 2:30 (SALES PROMOTION DIRECTOR Initial [place]) Please contact pt at [phone] documented in this encounter Plan of Treatment Upcoming Encounters Date Type Department Care Team (Late Contact Info) Description 01/29/2025 2:45 PM EDT Clinical Support [facility] CHC MED & PEDS [address] [place] [address] Gracie Riggs, RN [address] [place] [address] 02/20/2025 11:00 AM EDT Office Visit [facility] MED & PEDS [address] [place] [address] Gwen Crook MD [address] [place] [address] documented as of this encounter Visit Diagnoses Not on filedocumented in this encounter Care Teams Code Clerk Relationship Specialty Start Date End Date Gwen Crook MD [address] [place] [address] PCP - General Family Medicine 11/20/18 documented as of this encounter
--- OUTSIDE RECORDS SUMMARY | 2025-01-24 17:02 | XMS_ITS | Encounter Summary ---
Author Organization [employer] Address [address] [place] [address] [address] [place] [address] Care Team Providers Care Electrical Assembly Supervisor Name Role Phone Gwen Crook MD Primary Care Provider [phone] Reason for Referral * Consultation (Routine) - Closed Specialty Diagnoses / Procedures Referred By Contac t Referred To Contact Physical Medicine and Rehabilitation Diagnoses Lymphedema of both lower extremities Gwen Crook MD [address] [place] [address] Phone: tel: fax: [facility] [address] Phone: tel: fax: Referral ID Status Reason Start Date Expiration Date V isits Requested Visits Authorized [id number] Closed Specialty Services Required 01/19/2025 01/19/2026 1 1 Scheduling Instructions At [facility] physical medicine and rehab center please Encounter Details Date Type Department Care Team (Late st Contact Info) Description 01/16/2025 1:15 PM EST Office Visit [facility] CHC MED & PEDS [address] [place], [place] [phone] Gwen Crook MD [address] [place], [place] [phone] Prediabetes (Primary Dx); Neck pain, bilateral posterior; Dietary counseling; Exercise counseling; Liposarcoma (CMS/HCC); Class 3 severe obesity due to excess calories with serious comorbidity and body mass index (BMI) of 40.0 to 44.9 in adult (CMS/HCC); Lymphedema of both lower extremities Social History Tobacco Use Types Packs/Day Years [...] 1:28 PM EST documented in this encounter Progress Notes * Gwen Crook MD - 01/16/2025 1:15 PM EST Subjective Patient ID: Simran Murphy is a 54 y.o. female who presents for sick visit. Simran is a wel known 54 y/o female patient of mine here for revisit.Has many complaints including worsening neck pain shooting towards both arms sometimes,no associated falls,headache,etc.. Needs a new walker as her seat is broken. Wants to lose weight with help as she cannot walk properly due to foot issues and chronic lymphedema. Review of Systems Constitutional: Negative for activity change, chills, fever and unexpected weight change. Respiratory: Negative for cough, shortness of breath and wheezing. Cardiovascular: Positive for leg swelling. Negative for chest pain and palpitations. Gastrointestinal: Negative for abdominal pain and blood in stool. Endocrine: Negative for polydipsia and polyuria. Genitourinary: Negative for decreased urine volume, difficulty urinating, dysuria and hematuria. Musculoskeletal: Positive for arthralgias and neck pain. Negative for gait problem. Skin: Negative for color change and rash. Neurological: Negative for dizziness and headaches. Hematological: Negative for adenopathy. Psychiatric/Behavioral: Negative for dysphoric mood, hallucinations, sleep disturbance and suicidalideas. The patient is not nervous/anxious. Objective BP 125/65 (BP Location: Right arm, Patient Position: Sitting, BP Cuff Size: Large adult) Pulse 70 Temp 97.4 ??F (36.3 ??C) (Oral) Resp 18 Ht 5' 3.39 (1.61 m) Wt 264 lb 12.8 oz (120 kg) SpO2 99% BMI 46.34 kg/m?? Physical Exam Vitals reviewed. Constitutional: General: She is not in acute distress. Appearance: Normal appearance. She is obese. She is not ill-appearing. HENT: Head: Normocephalic. Right Ear: Tympanic membrane and ear canal normal. Left Ear: Tympanic membrane and ear canal normal. Nose: Nose normal. Mouth/Throat: Mouth: Mucous membranes are moist. Pharynx: No oropharyngeal exudate or posterior oropharyngeal erythema. Eyes: Extraocular Movements: Extraocular movements intact. Conjunctiva/sclera: Conjunctivae normal. Pupils: Pupils are equal, round, and reactive to light. Neck: Thyroid: No thyroid mass or thyromegaly. Cardiovascular: Rate and Rhythm: Normal rate and regular rhythm. Pulses: Normal pulses. Heart sounds: Normal heart sounds. Pulmonary: Effort: Pulmonary effort is normal. No respiratory distress. Breath sounds: Normal breath sounds. Abdominal: General: There is distension. Palpations: Abdomen is soft. Musculoskeletal: General: Normal range of motion. Cervical back: Normal range of motion. No erythema. Pain with movement present. Right lower leg: Edema present. Left lower leg: Edema present. Comments: Bilateral leg lymphedema Lymphadenopathy: Cervical: No cervical adenopathy. Skin: General: Skin is warm. Capillary Refill: Capillary refill takes less than 2 seconds. Neurological: General: No focal deficit present. Mental Status: She is alert and oriented to person, place, and time. Psychiatric: Mood and Affect: Mood normal. Behavior: Behavior normal. Thought Content: Thought content normal. Judgment: Judgment normal. Assessment/Plan Diagnoses and all orders for this visit: Prediabetes Comments: Recheck A1c plus labs.Call if abnormal. Treat if needed.Needs to lose weight to improve mobility.Already using a walker, needs a new one, current one is broken. Orders: - CBC auto differential; Future - Comprehensive Metabolic Panel; Future - Hemoglobin A1c; Future - TSH W/Reflex to FT4; Future - Vitamin B12/Folate, Serum Panel; Future - Sed Rate by Modified Westergren; Future Neck pain, bilateral posterior Comments: seems like severe DJD,possibly disc disease with radiculopathy due to associated tingling of arms,etc..Xrays ordered today,call with results. MRI if needed .Quick follow up for results and re eval given. Orders: - XR CERVICAL SPINE 4V; Future Dietary counseling Exercise counseling Liposarcoma ([facility]) Comments: TReated surgically in [place] years ago.Needs follow up prn only. No new complaints,lumps in area etc..In remission. Class 3 severe obesity due to excess calories with serious comorbidity and body mass index (BMI) of40.0 to 44.9 in adult (CMS/HCC) Dietary Recommendations: Fruits, vegetables, whole grains, protein foods, and fat-free or low-fat dairy products are healthychoices. Eat different types of protein foods in your diet. This can include seafood, lean meats, poultry, beans, peas, lentils, nuts, seeds, soy products, and eggs. Limit foods and beverages higher in added sugars, saturated fat, and sodium. Exercise Recommendations: At least 150 minutes of moderate-intensity physical activity per week, or an equivalent combinationof moderate- and vigorous-intensity activity Comments: With significant lower legs lymphedema.Needs to lose weight , unsble to walk well. Check fasting labs. GLP1 would be beneficial. Discuss with patient after results reviewed. Lymphedema of both lower extremities Comments: Will refer to [facility] physical medicine /rehab center for treatment.Referral done.New walker needed andwill be requested.Needs to walk more. Orders: - Referral to Physical Medicine Rehab; Future Other orders - baclofen (Lioresal) 5 MG tablet; Take 1 tablet (5 mg) by mouth 3 times daily. documented in this encounter Plan of Treatment Upcoming Encounters Date Type Department Care Team (Late st Contact Info) Description 01/29/2025 2:45 PM EDT Clinical Support [facility] MED & PEDS [address] [place] [address] Gracie Riggs, RN 505 [place] [address] 02/20/2025 11:00 AM EDT Office Visit [facility] MED & PEDS [address] [place] [address] Gwen Crook MD 505 [place] [address] Scheduled Orders Name Type Priority Associated Diagnoses Orde r Schedule XR CERVICAL SPINE 4V Imaging Routine Neck pain, bilateral posterior Expected: 01/16/2025, Expires: 01/16/2026 Scheduled Referrals Name Type Priority Associated Diagnoses Orde r Schedule Referral to Physical Medicine Rehab Outpatient Referral Routine Lymphedema of both lower extremities Expected: 01/19/2025 (Approximate), Expires: 01/19/2026 documented as of this encounter Procedures Procedure Name Priority Date/Time Associated Diagnosis Comments VITAMIN B12/FOLATE, SERUM PANEL Routine 01/16/2025 1:55 PM EST Prediabetes TSH W/REFLEX TO FT4 Routine 01/16/2025 1 :55 PM EST Prediabetes CBC WITH AUTO DIFFERENTIAL Routine 01/16/2025 1:55 PM EST Prediabetes SED RATE BY MODIFIED WESTERGREN Routine 01/16/2025 1:55 PM EST Prediabetes HEMOGLOBIN A1C Routine 01/16/2025 1:55 PM EST Prediabetes COMPREHENSIVE METABOLIC PANEL Routine 01/16/2025 1:55 PM EST Prediabetes documented in this encounter Results * Sed Rate by Modified Westergren (01/16/2025 1:55 PM EST) Erythrocyte Sedimentation Rate 12 0 - 20 MM/HR [facility] Comment:Patients with polycy themia and many hemoglobin abnormalitiesmay have depressed sed rates whereas patients with anemiamay have elevated sed rates. Blood Venous blood specimen / Unknown 01/16/2025 1:55 PM EST 01/16/2025 6:11 PM EST us Gwen Crook MD LAB BLOOD ORDERABLES Final Re sult [facility] [address] [place] [phone] * (ABNORMAL) Vitamin B12/Folate, Serum Panel (01/16/2025 1:55 PM EST) Vitamin B12 1,002(H) 200 - 900 pg/mL [facility] Comment:NORMAL 200-900 PG/ML INDETERMINATE 160-199 PG/ML DEFICIENT < 160 PG/ML Folate 13.3 > or = 4.0 ng/mL [facility] Comment:Reference Values:> o r = 4.0 ng/mL< 4.0 ng/mL suggests folate deficiency Methotrexate, aminopterin and folinic acid(leucovorin) are chemotherapeutic agents whose molecularstructures are similar to folate; therefore, the Architectfolate assay cannot be used for patients using these drugs. Blood Venous blood specimen / Unknown 01/16/2025 1:55 PM EST 01/16/2025 6:11 PM EST Gwen Crook MD LAB BLOOD ORDERABLES Final Re sult Performing Organization Address [facility]/ZIP Co de Phone Number [facility] [address] [place] [phone] * TSH W/Reflex to FT4 (01/16/2025 1:55 PM EST) TSH reflex Free T4 2.20 0.32 - 4.0 uIU/mL [facility] Blood Venous blood specimen / Unknown 01/16/2025 1:55 PM EST 01/16/2025 6:11 PM EST Gwen Crook MD LAB BLOOD ORDERABLES Final Re sult Performing Organization Address [facility] Co de Phone Number [facility] [address] [place] [phone] * Hemoglobin A1c (01/16/2025 1:55 PM EST) Hemoglobin A1c 5.6 <6.0 % [facility] Comment:Hemoglobin A1C Refer ence Range Adults: 4.8 - 6.0 % Non diabetic: < 6.0 % Goal: < 7.0 %Additional Action Suggested: > 8.0 %Note: Hemoglobin A1c results are invalid for patients with abnormal amounts of HbF. Blood transfusions may impact the HbA1c concentration in the patient sample. Estimated Average Glucose 114 mg/dL [facility] Comment:eAG = Estimated ave rage glucose which is %A1C expressed asaverage glucose, using the formula of the C1O-WeshggsVcajswk Glucose study (ADAG), Diabetes Care, Vol.31,#8,2007 Blood Venous blood specimen / Unknown 01/16/2025 1:55 PM EST 01/16/2025 6:11 PM EST us Gwen Crook MD LAB BLOOD ORDERABLES Final Re sult [facility] [address] [place], [place] [phone] * (ABNORMAL) Comprehensive Metabolic Panel (01/16/2025 1:55 PM EST) Sodium 141 135 - 145 mmol/L [facility] Potassium 3.8 3.3 - 5.1 mmol/L [facility] Chloride 105 96 - 108 mmol/L [facility] Carbon Dioxide 28 22 - 29 mmol/L [facility] Anion Gap 12 12 - 20 [facility] Urea Nitrogen (BUN) 19(H) 9 - 16 mg/dL [facility] Creatinine, Serum 0.66 0.5 - 1.4 mg/dL [facility] Estimated Glomerular Filt Rate >60 [facility] Comment:Chronic Kidney Disea se: Estimated GFR < 60 mL/min/1.65l1Tjelap Kidney Disease: Estimated GFR < 15 mL/min/1.73m2 Glucose 93 60 - 115 mg/dL [facility] Calcium 9.4 8.4 - 10.2 mg/dL [facility] Bilirubin, Total 0.3 0.0 - 1.0 mg/dL [facility] Aspartate Amino Transferase 24 5 - 31 U/L [facility] Alanine Aminotransferase 22 0 - 31 U/L [facility] Total Protein 7.4 6.5 - 8.0 g/dL [facility] Albumin Level 4.2 3.5 - 5.0 g/dL [facility] Alkaline Phosphatase 77 39 - 117 U/L [facility] Blood Venous blood specimen / Unknown 01/16/2025 1:55 PM EST 01/16/2025 6:11 PM EST us Gwen Crook MD LAB BLOOD ORDERABLES Final Re sult [facility] [address] [place] [phone] [phone] * (ABNORMAL) CBC auto differential (01/16/2025 1:55 PM EST) White Blood Count 5.8 4.8 - 10.8 X10*3/uL [facility] Red Blood Count 4.08(L) 4.20 - 5.50 X10*6/uL [facility] Hemoglobin 12.7 12.0 - 16.0 g/dl [facility] Hematocrit 37.9 37.0 - 47.0 % [facility] Mean Corpuscular Volume 92.9 80.0 - 98.0 fL [facility] Mean Corpuscular Hemoglobin 31.1 27.0 - 33.0 pg [facility] Mean Corpuscular HGB Conc 33.5 31.0 - 35.0 g/dl [facility] Red Cell Distribution Width 12.4 11.0 - 16.0 % [facility] Platelet Count 220 160 - 400 X10*3/uL [facility] Mean Platelet Volume 10.3 9.4 - 12.3 fL [facility] Neutrophils Percent Auto 55.5 45 - 73 % [facility] Imm Gran Pct Auto 0.2 0.0 - 0.4 % [facility] Lymphocytes Percent Auto 33.5 20 - 40 % [facility] Monocytes Percent Auto 8.2 2 - 11 % [facility] Eosinophils Percent Auto 2.3 0 - 4 % [facility] Basophils Percent Auto 0.3 0 - 2 % [facility] NRBC Pct Auto 0.0 0.0 - 0.2 /100WBC [facility] Neutrophils Absolute Auto 3.2 2.0 - 8.3 x10*3/uL [facility] Imm Gran Abs Auto 0.01 0.00 - 0.03 X10*3/uL [facility] Lymphocytes Absolute Auto 1.9 1.2 - 4.9 X10*3/uL [facility] Monocytes Absolute Auto 0.5 0.1 - 1.2 X10*3/uL [facility] Eosinophils Absolute Auto 0.1 0.0 - 0.4 X10*3/uL [facility] Basophils Absolute Auto 0.0 0.0 - 0.2 X10*3/uL [facility] NRBC Abs Auto 0.000 0.0 - 0.012 X10*3/uL [facility] Blood Venous blood specimen / Unknown 01/16/2025 1:55 PM EST 01/16/2025 6:11 PM EST us Gwen Crook MD LAB BLOOD ORDERABLES Final Re sult [facility] [address] [place] [phone] documented in this encounter Visit Diagnoses Diagnosis Prediabetes- Primary Other abnormal glucose Neck pain, bilateral posterior Dietary counseling Dietary surveillance and counseling Exercise counseling Liposarcoma (CMS/HCC) Malignant neoplasm of connective and other soft tissue, site unspecified Class 3 severe obesity due to excess calories with serious comorbidity and body mass index (BMI) of 40.0 to 44.9 in adult (CMS/HCC) Lymphedema of both lower extremities documented in this encounter Additional Health Concerns Assessment Noted Time PHQ-9 Depression Total Score: 4 01/20/20 23 11:58 AM EST documented as of this encounter Care Teams Electrical Assembly Supervisor Relationship Specialty Start Date End Date Gwen Crook MD [address] [place] [phone] PCP - General Family Medicine 11/20/18 documented as of this encounter
--- OUTSIDE RECORDS SUMMARY | 2025-01-24 17:02 | XMS_ITS | Encounter Summary ---
Author Organization [employer] Address [address] [place] [address] 7 [place] [address] Care Team Providers Care Educational Administrator Name Role Phone Gwen Crook MD Primary Care Provider [phone] Reason for Visit * Reason Comments Med Refill Encounter Details Date Type Department Care Team ([facility] st Contact Info) Description 01/02/2025 Refill [facility] CHC MED & PEDS [address] [place], [place] [phone] Gwen Crook MD [address] [place] [address] Social History Tobacco Use Types Packs/Day Years [...] Description 01/29/2025 2:45 PM EDT Clinical Support [facility] MED & PEDS [address] [place] [address] Gracie Riggs RN [address] [place] [address] 02/20/2025 11:00 AM EDT Office Visit [facility] MED & PEDS [address] [place] [address] Gwen Crook MD [address] [place] [address] documented as of this encounter Visit Diagnoses Not on filedocumented in this encounter Additional Health Concerns Assessment Noted Time PHQ-9 Depression Total Score: 4 01/20/20 23 11:58 AM EST documented as of this encounter Care Teams Educational Administrator Relationship Specialty Start Date End Date Gwen Crook MD [address] [place] [address] PCP - General Family Medicine 11/20/18 documented as of this encounter
--- OUTSIDE RECORDS SUMMARY | 2025-01-24 17:02 | XMS_ITS | Encounter Summary ---
Author Organization [employer] Address [address] [place] [address] 7 [place] [address] Care Team Providers Care Hotel Yardperson Name Role Phone Gwen Crook MD Primary Care Provider [phone] Reason for Visit * Reason Comments Med Change Request Encounter Details Date Type Department Care Team ([facility] Contact Info) Description 01/02/2025 Refill [facility] MED & PEDS [address] [place], [place] [phone] Gwen Crook MD [address] [place] [address] Social History Tobacco Use Types Packs/Day Years [...] 2:45 PM EDT Clinical Support [facility] MED & PEDS [address] [place] [address] Gracie Riggs RN [address] [place] [address] 02/20/2025 11:00 AM EDT Office Visit [facility] MED & PEDS [address] [place] [address] Gwen Crook MD [address] [place] [address] documented as of this encounter Visit Diagnoses Not on filedocumented in this encounter Additional Health Concerns Assessment Noted Time PHQ-9 Depression Total Score: 4 01/20/20 23 11:58 AM EST documented as of this encounter Care Teams Hotel Yardperson Relationship Specialty Start Date End Date Gwen Crook MD [address] [place] [address] PCP - General Family Medicine 11/20/18 documented as of this encounter
--- OUTSIDE RECORDS SUMMARY | 2025-01-24 17:02 | XMS_ITS | Encounter Summary ---
Author Organization [employer] Address [address] [place] [address] 7 [place] [address] Care Team Providers Care Dietetic Intern Name Role Phone Gewn Crook MD Primary Care Provider [phone] Reason for Visit * Reason Comments Med Refill Encounter Details Date Type Department Care Team (Late Contact Info) Description 12/16/2022 Refill [facility] MEDICINE [address] [place], [place] [phone] Paige Juares MD [address] [place] [address] Social History Tobacco Use Types Packs/Day Years [...] Description 01/29/2025 2:45 PM EDT Clinical Support [facility] MED & PEDS [address] [place] [address] Gracie Riggs, TARAS [address] [place], [place] [phone] 02/20/2025 11:00 AM EDT Office Visit [facility] CHC MED & PEDS [address] [place] [address] Gwen Crook MD [address] [place], [place] [phone] documented as of this encounter Visit Diagnoses Not on filedocumented in this encounter Care Teams Dietetic Intern Relationship Specialty Start Date End Date Gwen Crook MD [address] [place] [phone] PCP - General Family Medicine 11/20/18 documented as of this encounter
--- OUTSIDE RECORDS SUMMARY | 2025-01-24 17:02 | XMS_ITS | Encounter Summary ---
Author Organization [employer] Address [address] [place] [address] 7 [place] [address] Care Team Providers Care Site Promotion Agent Name Role Phone Gwen Crook MD Primary Care Provider [phone] Reason for Visit * Reason Comments Med Refill Encounter Details Date Type Department Care Team ([facility] st Contact Info) Description 12/19/2024 Refill [facility] CHC MED & PEDS [address] [place], [place] [phone] Gwen Crook MD [address] [place] [address] Social History Tobacco Use Types Packs/Day Years [facility] [address] [place] [address] Gracie Riggs RN [address] [place] [address] 02/20/2025 11:00 AM EDT Office Visit [facility] MED & PEDS [address] [place] [address] Gwen Crook MD [address] [place] [address] documented as of this encounter Visit Diagnoses Not on filedocumented in this encounter Additional Health Concerns Assessment Noted Time PHQ-9 Depression Total Score: 4 01/20/20 23 11:58 AM EST documented as of this encounter Care Teams Site Promotion Agent Relationship Specialty Start Date End Date Gwen Crook MD [address] [place] [address] PCP - General Family Medicine 11/20/18 documented as of this encounter
--- OUTSIDE RECORDS SUMMARY | 2025-01-24 17:02 | XMS_ITS | Encounter Summary ---
Author Organization [employer] Address [address] [place] [address] [place] [address] Care Team Providers Care Stove Fitter Name Role Phone Gwen Crook MD Primary Care Provider [phone] Reason for Visit * Reason Comments Care Coordination CHW outreach for SDO H utilities and food needs-referral completed Encounter Details Date Type Department Care Team (Latest Contact Info) Description 01/01/2025 Patient Outreach [facility] & PEDS [address] [place] [address] Gwen Crook MD [address] [place] [address] Care Coordination (CHW outreach for SDOH utilities [...] wednesdays, and Walk-In Urgent Care Located in [facility]. Patient provided with after-hours line for [facility], , which offer night time triage service and option to transfer to lockstitch front edge tape sewer provider if needed. documented in this encounter Plan of Treatment Upcoming Encounters Date Type Department Care Team ([facility] st Contact Info) Description 01/29/2025 2:45 PM EDT Clinical Support [facility] MED & PEDS [address] [place] [address] Gracie Riggs, TARAS [address] [place] [address] 02/20/2025 11:00 AM EDT Office Visit [facility] [address] [place] [address] Gwen Crook MD [address] [place] [address] documented as of this encounter Visit Diagnoses Not on filedocumented in this encounter Additional Health Concerns Assessment Noted Time PHQ-9 Depression Total Score: 4 01/20/20 23 11:58 AM EST documented as of this encounter Care Teams Stove Fitter Relationship Specialty Start Date End Date Gwen Crook MD [address] [place] [address] PCP - General Family Medicine 11/20/18 documented as of this encounter
--- OUTSIDE RECORDS SUMMARY | 2025-01-24 17:02 | XMS_ITS | Clinical Summary ---
Author Organization [employer] Address [address] [place] [address] 7t [place] [address] Care Team Providers Care Tour Coordinator Name Role Phone Gwen Crook MD Primary Care Provider [phone] Allergies Active Allergy Reactions Criticality Noted Date [...] times daily. 90 tablet 1 025 Active omeprazole (PriLOSEC) [address] capsule TAKE 1 CAPSULE BY MOUTH TWICE A DAY 180 capsule 3 023 2024 Discontinued diazePAM (Valium) 2 MG tablet TAKE 1 TABLET (2 MG) BY MOUTH IF NEEDED AT BEDTIME FOR ANXIETY. 30 tablet 024 2024 Discontinued acetaminophen-co deine (Tylenol w/ [...] Active Problems Problem Noted Date Diagnosed Date Lymphedema of both lower extremities 01/19/2025 GERD (gastroesophageal reflux disease) Acute bacterial conjunctivitis of both eyes 11/20 [...] Encounters Date Type Department Care Team Description 01/21/2025 Telephone [facility] PEDS [address] [place] [address] Gwen Crook MD Durable Medical Equipment 01/16/2025 1:15 PM EST Office Visit [facility] [address] [place], [place] [phone] Gwen Crook MD Prediabetes (Primary Dx); Neck pain, bilateral posterior; Dietary counseling; Exercise counseling; Liposarcoma (CMS/HCC); Class 3 severe obesity due to excess calories with serious comorbidity and body mass index (BMI) of 40.0 to 44.9 in adult (CMS/HCC); Lymphedema of both lower extremities 01/16/2025 Travel 01/07/2025 Refill [facility] PEDS [address] [place] [address] Gwen Crook MD 01/02/2025 Refill [facility] [address] [place] [address] Gwen Crook MD 01/02/2025 Refill [facility] [address] [place] [address] Petros Norris MD Lumbar disc herniation with radiculopathy 01/02/2025 Refill [facility] [address] [place] [address] Gwen Crook MD 01/01/2025 Patient Outreach [facility] [address] [place] [address] Gwen Crook MD Care Coordination (CHW outreach for [facility] utilities and food needs-referral completed /) 01/01/2025 Patient Outreach [facility] [address] [place] [address] Gwen Crook MD Pre-visit Planning (SDOH screening positive and Tobacco screening negative) 12/21/2024 Refill [facility] [address] [place] [address] Gwen Crook MD 12/20/2024 Refill [facility] [address] [place] [address] Gwen Crook MD 12/19/2024 Refill [facility] [address] [place] [address] Gwen Crook MD 12/19/2024 Refill [facility] [address] [place] [address] Gwen Crook MD 12/16/2024 Refill [facility] [address] [place] [address] Gwen Crook MD 12/11/2024 Telephone [facility] [address] [place] [address] Gwen Crook MD Nurse Triage 12/10/2024 Refill [facility] [address] [place] [address] Gwen Crook MD Lumbar disc herniation with radiculopathy 12/02/2024 Orders Only [facility] [address] [place] [address] Owen Salazar MD 11/14/2024 1:30 PM EST Clinical Support [facility] [address] [place] [address] Gracie Riggs RN Bilateral primary osteoarthritis of knee 11/14/2024 Travel 11/11/2024 Refill [facility] [address] [place] [address] Gwen Crook MD Lumbar disc herniation with radiculopathy 11/03/2024 Refill [facility] [address] [place] [address] Paige Juares MD from Last 3 Months [...] 01/29/2025 2:45 PM EDT Clinical Support [facility] [address] [place] [address] Gracie Riggs RN 505 [place] [id number] 02/20/2025 11:00 AM EDT Office Visit [facility] [address] [place] [place] [address] Gwen Crook MD [address] [place] [id number] Health Maintenance Due Date Last Done Comments [...] 2024 , 11/18/2016, 08/20/2014, Additional history exists Tobacco Screening 07/02/2025 07/02/2024 SDOH Screening 01/01/2026 01/01/2025 Alcohol/Substance Use Screening 01/16/2026 01/16/2025 Diabetes: Hemoglobin A1C 01/16/2026 025, 03/20/2024, 09/21/2022, Additional history exists DTaP/Tdap/Td Vaccines (2 - Td or Tdap) [...] Procedure Name Priority Date/Time Associated Diagnosis Comments SED RATE BY MODIFIED WESTERGREN Routine 01/16/2025 1:55 PM EST Prediabetes VITAMIN B12/FOLATE, SERUM PANEL Routine 01/16/2025 1:55 PM EST Prediabetes TSH W/REFLEX TO FT4 Routine 01/16/2025 1 :55 PM EST Prediabetes HEMOGLOBIN A1C Routine 01/16/2025 1:55 PM EST Prediabetes COMPREHENSIVE METABOLIC PANEL Routine 01/16/2025 1:55 PM EST Prediabetes CBC WITH AUTO DIFFERENTIAL Routine 01/16/2025 1:55 PM EST Prediabetes POCT JOBY-14 URINE DRUG SCREEN Routine 11/14/2024 [...] Recently Relevant to Health Maintenance Results * (ABNORMAL) Vitamin B12/Folate, Serum Panel (01/16/2025 1:55 PM EST) Vitamin B12 1,002(H) 200 - 900 pg/mL [facility] Comment:NORMAL 200-900 PG/ML INDETERMINATE 160-199 PG/ML DEFICIENT < 160 PG/ML Folate 13.3 > or = 4.0 ng/mL [facility] Comment:Reference Values:> o r = 4.0 [...] ORDERABLES Final Re sult Performing Organization Address City/[facility]/ZIP Co de Phone Number [facility] [address] [place] [phone] * TSH W/Reflex to FT4 (01/16/2025 1:55 PM EST) TSH reflex Free T4 2.20 0.32 - 4.0 uIU/mL [facility] Blood Venous blood specimen / Unknown 01/16/2025 1:55 PM EST 01/16/2025 6:11 PM EST Gwen Crook MD LAB BLOOD ORDERABLES Final Re sult Performing Organization Address City/[facility]/ZIP Co de Phone Number [facility] [address] [place] [phone] * (ABNORMAL) CBC auto differential (01/16/2025 1:55 PM EST) White Blood Count 5.8 4.8 - 10.8 X10*3/uL [facility] Red Blood Count 4.08(L) 4.20 - 5.50 X10*6/uL [facility] Hemoglobin 12.7 12.0 - 16.0 g/dl [facility] Hematocrit 37.9 37.0 - 47.0 % [facility] Mean Corpuscular Volume 92.9 80.0 - 98.0 fL [facility] Mean Corpuscular Hemoglobin 31.1 27.0 - 33.0 pg [facility] Mean Corpuscular HGB Conc 33.5 31.0 - 35.0 g/dl [facility] Red Cell Distribution Width 12.4 11.0 - 16.0 % [facility] Platelet Count 220 160 - 400 X10*3/uL [facility] Mean Platelet Volume 10.3 9.4 - 12.3 fL [facility] Neutrophils Percent Auto 55.5 45 - 73 % [facility] Imm Gran Pct Auto 0.2 0.0 - 0.4 % [facility] Lymphocytes Percent Auto 33.5 20 - 40 % [facility] Monocytes Percent Auto 8.2 2 - 11 % [facility] Eosinophils Percent Auto 2.3 0 - 4 % [facility] Basophils Percent Auto 0.3 0 - 2 % [facility] NRBC Pct Auto 0.0 0.0 - 0.2 /100WBC [facility] Neutrophils Absolute Auto 3.2 2.0 - 8.3 x10*3/uL [facility] Imm Gran Abs Auto 0.01 0.00 - 0.03 X10*3/uL [facility] Lymphocytes Absolute Auto 1.9 1.2 - 4.9 X10*3/uL [facility] Monocytes Absolute Auto 0.5 0.1 - 1.2 X10*3/uL [facility] Eosinophils Absolute Auto 0.1 0.0 - 0.4 X10*3/uL [facility] Basophils Absolute Auto 0.0 0.0 - 0.2 X10*3/uL [facility] NRBC Abs Auto 0.000 0.0 - 0.012 X10*3/uL [facility] Blood Venous blood specimen / Unknown 01/16/2025 1:55 PM EST 01/16/2025 6:11 PM EST Gwen Crook MD LAB BLOOD ORDERABLES Final Re sult Performing Organization Address City/[facility]/ZIP Co de Phone Number [facility] [address] [place] [phone] * Sed Rate by Modified Westergren (01/16/2025 1:55 PM EST) Erythrocyte Sedimentation Rate 12 0 - 20 MM/HR [facility] Comment:Patients with polycy themia and many hemoglobin abnormalitiesmay have depressed sed rates whereas patients with anemiamay have elevated sed rates. Blood Venous blood specimen / Unknown 01/16/2025 1:55 PM EST 01/16/2025 6:11 PM EST Gwen Crook MD LAB BLOOD ORDERABLES Final Re sult Performing Organization Address [facility] Co de Phone Number [facility] [address] [place] [phone] * Hemoglobin A1c (01/16/2025 1:55 PM EST) Hemoglobin A1c 5.6 <6.0 % [facility] Comment:Hemoglobin A1C Refer ence Range Adults: 4.8 - 6.0 % Non diabetic: < 6.0 % Goal: < 7.0 %Additional Action Suggested: > 8.0 %Note: Hemoglobin A1c results are invalid for patients with abnormal amounts of HbF. Blood transfusions may impact the HbA1c concentration in the patient sample. Estimated Average Glucose 114 mg/dL [facility] Comment:eAG = Estimated ave rage glucose which is %A1C expressed asaverage glucose, using the formula of the K9W-DgjxetiCnitvyp Glucose study (ADAG), Diabetes Care, Vol.31,#8,2007 Blood Venous blood specimen / Unknown 01/16/2025 1:55 PM EST 01/16/2025 6:11 PM EST us Gwen Crook MD LAB BLOOD ORDERABLES Final Re sult [facility] [address] [place] [phone] [phone] * (ABNORMAL) Comprehensive Metabolic Panel (01/16/2025 1:55 PM EST) Sodium 141 135 - 145 mmol/L [facility] Potassium 3.8 3.3 - 5.1 mmol/L [facility] Chloride 105 96 - 108 mmol/L [facility] Carbon Dioxide 28 22 - 29 mmol/L [facility] Anion Gap 12 12 - 20 [facility] Urea Nitrogen (BUN) 19(H) 9 - 16 mg/dL [facility] Creatinine, Serum 0.66 0.5 - 1.4 mg/dL [facility] Estimated Glomerular Filt Rate >60 [facility] Comment:Chronic Kidney Disea se: Estimated GFR < 60 mL/min/1.31f4Cijqwt Kidney Disease: Estimated GFR < 15 mL/min/1.73m2 Glucose 93 60 - 115 mg/dL [facility] Calcium 9.4 8.4 - 10.2 mg/dL [facility] Bilirubin, Total 0.3 0.0 - 1.0 mg/dL [facility] Aspartate Amino Transferase 24 5 - 31 U/L [facility] Alanine Aminotransferase 22 0 - 31 U/L [facility] Total Protein 7.4 6.5 - 8.0 g/dL [facility] Albumin Level 4.2 3.5 - 5.0 g/dL [facility] Alkaline Phosphatase 77 39 - 117 U/L [facility] Blood Venous blood specimen / Unknown 01/16/2025 1:55 PM EST 01/16/2025 6:11 PM EST us Gwen Crook MD LAB BLOOD ORDERABLES Final Re sult [facility] [address] [place], [place] [phone] * POCT JOBY-14 Urine Drug Screen (11/14/2024 2:01 PM EST) Opiate Screen, Urine Positive Benzodiazepines Screen, Urine Positive Urine Urine specimen obtained by clean catch procedure / Unknown 11/14/2024 2:01 PM EST Narrative Gracie Rgigs RN - 11/14/2024 2:01 PM EST Lot# [id number] Exp: 10-26-25 Gwen Crook MD POINT OF CARE TEST ENTER/EDIT ORDERABLES Final Result * Albumin/Creatinine Ratio, Random Urine (11/06/2024 3:25 PM EST) Urine (Urine, Random) [facility] Provider LAB URINE ORDERABLES Maribell l Result * Pap Smear (07/30/2024 2:17 PM EDT) Pathologist [facility] SOURCE: SEE NOTE [facility] Comment:None given Report Status: [facility] Clinical Information: SEE NOTE [facility] Comment:None given LMP: SEE NOTE [facility] Comment:NONE GIVEN Prev. PAP: SEE NOTE [facility] Comment:NONE GIVEN Prev. BX: SEE NOTE [facility] Comment:NONE GIVEN Statement Of Adequacy: SEE NOTE [facility] Comment:Satisfactory for carmen luation.Endocervical/transformation zone component absent. General Categorization: [facility] Interpretation/Result: SEE NOTE [facility] Comment:Cytology Results: Ne gative for intraepitheliallesion or malignancy. Cytology Comment SEE NOTE [facility] Comment:This Pap test has be en evaluated with computerassisted technology. Php Programmer: SEE NOTE [facility] Comment:RPR, CT (ASCP) CT sc reening location: [address] [address] Review Php Programmer: [facility] Pathologist [facility] PAP Infection [facility] See Note SEE NOTE [facility] Comment:EXPLANATORY NOTE:The Pap is a screening test for cervical cancer. It isnot a diagnostic test and is subject to false negativeand false positive results. It is most reliable when asatisfactory sample, regularly obtained, is submittedwith relevant clinical findings and history, and whenthe Pap result is evaluated along with historic andcurrent clinical information.THIS TEST WAS PERFORMED AT:[employer] [address] [id number] SEVILLA MD Pap Vial Vaginal structure / Unknown 07/30/2024 2:17 PM EDT 07/30/2024 5:40 PM EDT Narrative [facility] - 08/05/2024 1:08 PM EDT SEE SCANNED RESULTS IN EMR us Gwen Crook MD LAB PATHOLOGY ORDERABLES Maribell yarbrough Result [facility] [address] [place] [phone] * Cologuard?? colon cancer screening (03/26/2024 3:45 PM EDT) Cologuard Result Negative Negative 04/02/20 24 10:19 AM EDT [employer] (CLIA #:[id number]) Comment: NEGATIVE TEST RESULT. A negative Cologuard [...] (Cristina Matos al, N Engl J Med 2014;370(14):1286- 1297) The normal value (reference range) for this assay is negative. COLOGUARD RE-SCREENING RECOMMENDATION: Periodic colorectal cancer screening is an important part of preventive healthcare for asymptomatic individuals at average risk for colorectal cancer. ??Following a negative Cologuard result, the [place] [employer] Society and U.S. Multi-Society Task Force screening guidelines recommend a Cologuard re-screening interval of 3 years. References: [place] [employer] Guideline for Colorectal Cancer Screening: https://www.cancer.org/cancer/kybme-cvdffy-wjloex/lyvlxrivs-pvnjeuxlr-djlnuhb/ac s-rec ommendations.html.; Janes SANCHEZ, Abrahan TORRES, Humberto BakerK, Colorectal Cancer Screening: Recommendations for Physicians and Patients from the U.S. Multi-Society Task Force on Colorectal Cancer Screening , Am J Gastroenterology 2017; 112:3877-3901. TEST DESCRIPTION: Composite algorithmic analysis of stool [...] screened with both Cologuard and colonoscopy. (Cristina Barrera, N Engl J Med 2014;370(14):1836-4478.) Cologuard may produce a false negative or false positive result (no colorectal cancer or precancerous polyp present at colonoscopy follow up). A negative Cologuard test result does not guarantee the absence of CRC or advanced adenoma (pre-cancer). The current Cologuard screening interval is every 3 years. ([place] [employer] and U.S. Multi-Society Task Force). Cologuard performance data in a 10,000 patient pivotal study using colonoscopy as the reference method can be accessed at the following location: www.[employer]/results. Additional description of the Cologuard test process, warnings and precautions can be found at www.cologMyStore.comrd.com. Stool specimen (specimen) 03/26/2024 3:45 PM EDT 03/27/2024 11:04 AM EDT us Gwen Crook MD LAB MOLECULAR DIAGNOSTICS ORD ERABLES Final Result [employer] (CLIA #:[id number]) [address] [place] [address], * (ABNORMAL) Lipid Panel, Standard (03/20/2024 9:34 AM EDT) Triglycerides 84 <150 mg/dL [facility] Comment:Desirable Triglyceri de: less than 150 mg/dLBorderline High Triglyceride 150-199 mg/dLHigh Triglyceride: 200-499 mg/dLVery High Triglyceride: greater than or equal to 5OO mg/dL Cholesterol 183 <200 mg/dL [facility] Comment:Desirable Cholestero l: less than 200 mg/dLBorderline High Cholesterol: 200-239 mg/dLHigh Cholesterol: greater than 239 mg/dL LDL Cholesterol Calculated 105(H) <100 mg/dL [facility] Comment:Desirable LDL: less than 100 mg/dLNear Optimal/Above Optimal LDL: 110- 129 mg/dLBorderline High LDL: 130-159 mg/dLHigh LDL: 160-189 mg/dLVery High LDL: greater than or equal to 190 mg/dL HDL Cholesterol 62 >40 mg/dL [facility] Comment:Desirable HDL: great er than 40 mg/dL Note: This HDL assay may give artificially low results in patients with liver disease. Blood Venous blood specimen / Unknown 03/20/2024 9:34 AM EDT 03/20/2024 2:28 PM EDT us Gwen Crook MD LAB BLOOD ORDERABLES Final Re sult [facility] [address] [place] [phone] from Last 3 Months or Most Recently Relevant to Health Maintenance [place] [place] [address] - [employer] Care Teams Tour Coordinator Relationship Specialty Start Date End Date Gwen Crook MD [address] [place] [phone] PCP - General Family Medicine 11/20/18
--- OUTSIDE RECORDS SUMMARY | 2025-01-24 17:02 | XMS_ITS | Clinical Summary ---
Author Organization [facility] ity Address [address] [place] [address] Care Team Providers Care Audio/Video Engineer Name Role Phone Unavailable Primary Care Provider [...]
--- OUTSIDE RECORDS SUMMARY | 2025-01-24 17:02 | XMS_ITS | Encounter Summary ---
Author Organization [employer] Address [address] [facility] 7 [place] [address] Care Team Providers Care Medical Coding Auditor Name Role Phone Gwen Crook MD Primary Care Provider [phone] Reason for Visit * Reason Onset Date Comments Nurse Triage 11/28/2023 Encounter Details Date Type Department Care Team ([facility] st Contact Info) Description 11/28/2023 Telephone [facility] MEDICINE [address] [place] [address] Gwen Crook MD [address] [place] [phone] Nurse Triage Social History Tobacco Use Types [...] t he electric, gas, oil or water 250ok threatened to shut off services in your [...] No answer LVM to return call to [facility] triage line [phone]. * Telephone Encounter - Cisco Murphy - 11/28/2023 2:26 PM EST Symptoms: Headache, Dizziness Outcome: Schedule an urgent appointment (within 4 hours) or talk to a nurse or provider soon Reason: Getting worse The caller accepted this outcome documented in this encounter Plan of Treatment Upcoming Encounters Date Type Department Care Team ([facility] st Contact Info) Description 01/29/2025 2:45 PM EDT Clinical Support [facility] [address] [place] [address] Gracie Riggs RN [address] [place] [address] 02/20/2025 11:00 AM EDT Office Visit [facility] [address] [place] [address] Gwen Crook MD [address] [place] [address] documented as of this encounter Visit Diagnoses Not on filedocumented in this encounter Additional Health Concerns Assessment Noted Time PHQ-9 Depression Total Score: 4 01/20/20 23 11:58 AM EST documented as of this encounter Care Teams Medical Coding Auditor Relationship Specialty Start Date End Date Gwen Crook MD [address] [place] [address] PCP - General Family Medicine 11/20/18 documented as of this encounter
--- OUTSIDE RECORDS SUMMARY | 2025-01-24 17:02 | XMS_ITS | Encounter Summary ---
Author Organization [employer] Address [address] [facility] 7t [place] [address] Care Team Providers Care Regional Dedicated Truck Driver Name Role Phone Gwen Crook MD Primary Care Provider [phone] Encounter Details Date Type Department Care Team ([facility] st Contact Info) Description 12/02/2024 Orders Only [facility] [address] [place] [address] Provider, MD Owen Social History Tobacco Use [...] Upcoming Encounters Date Type Department Care Team ([facility] st Contact Info) Description 01/29/2025 2:45 PM EDT Clinical Support [facility] [address] [place] [address] Gracie Riggs, TARAS [address] [place] [address] 02/20/2025 11:00 AM EDT Office Visit [facility] [address] [place] [address] Gwen Crook MD [address] [place] [address] documented as of this encounter Procedures Procedure [...] documented as of this encounter Care Teams Regional Dedicated Truck Driver Relationship Specialty Start Date End Date Gwen Crook MD [address] [place] [address] PCP - General Family Medicine 11/20/18 documented as of this encounter
--- OUTSIDE RECORDS SUMMARY | 2025-01-24 17:02 | XMS_ITS | Encounter Summary ---
Author Organization [employer] Address [address] [place] [address] 7t [place] [address] Care Team Providers Care Dish Technician Name Role Phone Gwen Crook MD Primary Care Provider [phone] Encounter Details Date Type Department Care Team [...] Upcoming Encounters Date Type Department Care Team ([facility] st Contact Info) Description 01/29/2025 2:45 PM EDT Clinical Support [facility] MED & PEDS [address] [place] [address] Gracie Riggs, TARAS [address] [place] [address] 02/20/2025 11:00 AM EDT Office Visit [facility] MED & PEDS [address] [place] [address] Gwen Crook MD [address] [place] [address] documented as of this encounter Visit Diagnoses Not on filedocumented in this encounter Additional Health Concerns Assessment Noted Time PHQ-9 Depression Total Score: 4 01/20/20 23 11:58 AM EST documented as of this encounter Care Teams Dish Technician Relationship Specialty Start Date End Date Gwen Crook MD [address] [place] [address] PCP - General Family Medicine 11/20/18 documented as of this encounter
--- OUTSIDE RECORDS SUMMARY | 2025-01-24 17:02 | XMS_ITS | Encounter Summary ---
Author Organization [employer] Address [address] [facility] 7 [place] [address] Care Team Providers Care Director Audience Marketing Name Role Phone Gwen Crook MD Primary Care Provider [phone] Reason for Visit * Reason Comments Pre-visit Planning SDOH screening posit felipe and Tobacco screening negative Encounter Details Date Type Department Care Team ([facility] st Contact Info) Description 01/01/2025 Patient Outreach [facility] MEDICINE [address] [place] [address] Gwen Crook MD [address] [place] [phone] Pre-visit Planning (SDOH screening positive and Tobacco [...] Wednesdays, and Walk-In Urgent Care Located in [facility] of [facility]. Patient provided with after-hours line for [facility], , which offer night time triage service and option to transfer to wheelchair van operator first responder provider if needed. Patient advised to bring toappointment a photo id and insurance card. Appropriate screenings completed in anticipation of appointment. SDOH positive. Patient looking for assistance with utilities. documented in this encounter Plan of Treatment Upcoming Encounters Date Type Department Care Team ([facility] st Contact Info) Description 01/29/2025 2:45 PM EDT Clinical Support [facility] MED & PEDS [address] [place] [address] Gracie Riggs, RN [address] [place] [address] 02/20/2025 11:00 AM EDT Office Visit [facility] MED & PEDS [address] [place] [address] Gwen Crook MD [address] [place] [address] documented as of this encounter Visit Diagnoses Not on filedocumented in this encounter Additional Health Concerns Assessment Noted Time PHQ-9 Depression Total Score: 4 01/20/20 23 11:58 AM EST documented as of this encounter Care Teams Director Audience Marketing Relationship Specialty Start Date End Date Gwen Crook MD [address] [place] [address] PCP - General Family Medicine 11/20/18 documented as of this encounter
--- OUTSIDE RECORDS SUMMARY | 2025-01-24 17:03 | XMS_ITS | Encounter Summary ---
Author Organization [employer] Address [address] [facility] 7 [place] [address] Care Team Providers Care Set Up Mechanic Coil Winding Machines Name Role Phone Gwen Crook MD Primary Care Provider [phone] Reason for Visit * Reason Onset Date Comments Nurse Triage 01/24/2024 Encounter Details Date Type Department Care Team ([facility] st Contact Info) Description 01/24/2024 Telephone [facility] MED & PEDS [address] [place], [place] [phone] Gwen Crook MD [address] [place] [address] Nurse Triage Social History Tobacco Use Types [...] t he electric, gas, oil or water [employer] threatened to shut off services in your [...] 01/24/2024 1:15 PM EST Triage call with [place] Gre[employer] Refiner Operator ID [id number] Pt reports uses a walker for walking [...] referral and tramadol refill to PCP and [facility] nursing team for follow up. Pt agrees [...] [facility] [address] [place] [address] Gracie Riggs RN [address] [place] [address] 02/20/2025 11:00 AM EDT Office Visit [facility] MED & PEDS [address] [place] [address] Gwen Crook MD [address] [place] [address] documented as of this encounter Visit Diagnoses Not on filedocumented in this encounter Additional Health Concerns Assessment Noted Time PHQ-9 Depression Total Score: 4 01/20/20 23 11:58 AM EST documented as of this encounter Care Teams Set Up Mechanic Coil Winding Machines Relationship Specialty Start Date End Date Gwen Crook MD [address] [place] [address] PCP - General Family Medicine 11/20/18 documented as of this encounter
--- OUTSIDE RECORDS SUMMARY | 2025-01-24 17:03 | XMS_ITS | Data Portability ---
Author Organization [employer] Address [address] [place] [id number] Care Team Providers Care Award Clerk Name Role Phone [facility] Referring Provider [facility] OTHER Assessment Encounter Date Assessment Date Assessment LastModified by Organization Details LastModified Time 12/11/2024 12/11/2024 I provided real -time medical direction via phone for this encounter and was available for additional phone-based assistance as needed. I have reviewed and agree with the Assessment and Plan as documented by the Service Developer. Patient given the opportunity to ask questions. [...] Does not keep legs consistently elevated. Per wood miller on the scene, vital signs are stable [...] % 64 /min 98.3 [degF] 16 /min 325492. 92 g 136 mm[Hg] 78 mm[Hg] Not Available [employer] 5 20:11:21 Date Recorded Oxygen saturation Oxygen [...] % 100 % 18 /min 76 /min 394124. 88 g 98.6 [degF] 76 /min 18 /min 98.6 [degF] 014491. 88 g 100 % 100 % 156 mm[Hg] 87 mm[Hg] 156 mm[Hg] 87 mm[Hg] Not Available [employer] 3 19:07:01 Social History None recorded. Functional Status None recorded. Mental Status None recorded. Family History Nothing Reported. Medical History No medical history recorded. Gynecological HistoryNo gynecological history recorded. Obstetrics History GPAL:G 0 P 0 0 0 0 Past Encounters Encounter ID Performer Location Encounter Start Date Encounter Closed Date Diagnosis/Indication Diagnosis SNOMED-CT Code Diagnosis ICD10 Code Diagnosis Note [id number] Kevin Sriniavsan MD Main - [address] [phone] 01/11/2023 18:49:37 01/13/2023 09:32:05 Sciatica 51308937 M54.32 She reports a sharp pain that starts in her buttock and radiates down her leg, worsened when sitting on the area, consistent with her known sciatica. Reports relief with ketorolac previously , not taking any of her anti-infla mmatory medication s. Reports no known kidney problems. Encouraged PCP follow-up. [id number] Danay Meyers MD Main - [facility] [address] [place] [phone] 12/11/2024 20:11:19 12/11/2024 23:46:05 Swelling of lower leg 630598168 R22.40 Health Concerns Section Related Observation LastModified by Organization Detai ls LastModified Time None Recorded Concern Status LastModified by Organization Details LastModified Time None Recorded Advance Directives Directive None Recorded Payers Encounter Date Sequence Insurance Name Policy Number Policy Linda Covered Member ID Linda Member ID Guarantor Name 01/11/2023 1 [employer] [facility] DOS PRIOR TO 2023 - DUAL ELIGIBLE (MEDICARE REPLACEMENT/ADV ANTAGE - HMO) Simran Murphy [id number] Simran Murphy 12/11/2024 1 [employer] [facility] - DOS ON OR AFTER 2023 - DUAL ELIGIBLE - HALFWAY OPTIONS AND ONE CARE (MEDICARE REPLACEMENT/ADV ANTAGE - HMO) Simran Murphy [id number] Simran Murphy Notes Date Note Type Note Provider Name and Address Organization Details Recorded Time 01/11/2023 text/html HPI: Patient with history of recent ankle surgery 8 weeks ago. Today woke with bone pain identified in right hip. Malaise and no effect from OTC medications. No fall or injury. .................. .................. .................. .................. .................. .................. .................. ............... [facility] Nursing Assessment: Comments: Review request no further information needed to process visit .................. .................. .................. .................. .................. .................. .................. ............... Service Developer Note From Binh Torres: Pt presents A@Ox4. [place] warm and dry. Pt c/o lower right [...] Baselone vitals assessed and recorded. Vitals stable. [facility] contacted and 30mg toradol IM in left deltoid at 1850. Pt educated on signsd that would indicated the ED. Pt advised to follow up with PCP Service Developer Allergies: Aspirin .................. .................. .................. .................. .................. .................. .................. ............... Disposition: Fulfilled Kevin Srinivasan MD [address] [place] [address],[address], [place], [address], [employer] 01/11/2023 19:12:01 12/11/2024 text/html HPI: Call returned [...] .................. .................. .................. .................. .................. .................. ............... [facility] Nurse Triage Notes (Clau Howe - RN): Chief Complaints: Swelling PMH: Hypertension, Chronic Back Pain, Obesity PMH Reviewed at 12/11/2024 14:16 Allergies Reviewed at 12/11/2024 - 14:16 Comments: HPI reviewed .................. .................. .................. .................. .................. .................. .................. ............... Service Developer Note From Dane Bill: [facility] visit for female pt. Pt presents sitting [...] allergy to toradol and NSAIDS. Consulted with [facility] Dr. Meyers who advised pt follow up with PCP. Reviewed medication dosages as listed on prescription bottles with plan for pt to go to PCP or ED tomorrow for pain. Reviewed red flags. Pt education provided. .................. .................. .................. .................. .................. .................. .................. ............... [facility] Consulted: Danay Meyers .................. .................. .................. .................. .................. .................. .................. ............... Disposition: Fulfilled Danay Meyers MD [address] [place] [address],[address], [place], [phone], [employer] 12/11/2024 20:57:57 OBGyn Episode No OBEpisode recorded.
--- OUTSIDE RECORDS SUMMARY | 2025-01-24 17:03 | XMS_ITS | Encounter Summary ---
Author Organization [employer] Address [address] [place] [address] 7 [place] [address] Care Team Providers Care Refinery Operator Gas Plant Name Role Phone Gwen Crook MD Primary Care Provider [phone] Reason for Visit * Reason Comments Med Refill Encounter Details Date Type Department Care Team (Late Contact Info) Description 02/20/2023 Refill [facility] MED & PEDS [address] [place] [address] Gwen Crook MD [address] [place] [address] Bilateral primary osteoarthritis of knee Social History [...] Description 01/29/2025 2:45 PM EDT Clinical Support [facility] MED & PEDS [address] [place] [address] Gracie Riggs RN [address] [place], [place] [phone] 02/20/2025 11:00 AM EDT Office Visit [facility] CH[facility] MED & PEDS [address] [place] [address] Gwen Crook MD [address] [place] [address] documented as of this encounter Visit Diagnoses Diagnosis Bilateral primary osteoarthritis of knee documented in this encounter Additional Health Concerns Assessment Noted Time PHQ-9 Depression Total Score: 4 01/20/20 23 11:58 AM EST documented as of this encounter Care Teams Refinery Operator Gas Plant Relationship Specialty Start Date End Date Gwen Crook MD [address] [place] [address] PCP - General Family Medicine 11/20/18 documented as of this encounter
--- OUTSIDE RECORDS SUMMARY | 2025-01-24 17:03 | XMS_ITS | Encounter Summary ---
Author Organization [employer] Address [address] [place] [address] 7 [place] [address] Care Team Providers Care Oil Producer Name Role Phone Gewn Crook MD Primary Care Provider [phone] Reason for Visit * Reason Comments Med Refill Encounter Details Date Type Department Care Team ([facility] st Contact Info) Description 03/01/2024 Refill [facility] MED & PEDS [address] [place], [place] [phone] Gwen Crook MD [address] [place] [address] Social History Tobacco Use Types Packs/Day Years Used Date Smoking Tobacco: Never Passive Smoke Exposure: Never Smokeless Tobacco: Never Depression Answer Date Recorded Patient Health Questionnaire-9 Score 4 01/19/2023 Housing Stability Answer Date Recorded What is your housing situation today? I have ploo thompson 09/06/[address] you [...] Description 01/29/2025 2:45 PM EDT Clinical Support [facility] MED & PEDS [address] [place] [address] Gracie Riggs RN [address] [place] [address] 02/20/2025 11:00 AM EDT Office Visit [facility] MED & PEDS [address] [place] [address] Gwen Crook MD [address] [place] [address] documented as of this encounter Visit Diagnoses Not on filedocumented in this encounter Additional Health Concerns Assessment Noted Time PHQ-9 Depression Total Score: 4 01/20/20 23 11:58 AM EST documented as of this encounter Care Teams Oil Producer Relationship Specialty Start Date End Date Gwen Crook MD [address] [place] [address] PCP - General Family Medicine 11/20/18 documented as of this encounter
--- OUTSIDE RECORDS SUMMARY | 2025-01-24 17:03 | XMS_ITS | Encounter Summary ---
Author Organization [employer] Address [address] [place] [address] 7 [place] [address] Care Team Providers Care Bale Piler Name Role Phone Gwen Crook MD Primary Care Provider [phone] Reason for Visit * Reason Comments Med Refill Encounter Details Date Type Department Care Team ([facility] st Contact Info) Description 02/11/2024 Refill [facility] MED & PEDS [address] [place], [place] [phone] Petros Norris MD [address] [place] [address] Social History Tobacco Use Types Packs/Day Years Used Date Smoking Tobacco: Never Passive Smoke Exposure: Never Smokeless Tobacco: Never Depression Answer Date Recorded Patient Health Questionnaire-9 Score 4 01/19/2023 Housing Stability Answer Date Recorded What is your housing situation today? I have oplo thompson 09/06/[address] you [...] 2:45 PM EDT Clinical Support [facility] MED & PEDS [address] [place] [address] Gracie Riggs RN [address] [place] [address] 02/20/2025 11:00 AM EDT Office Visit [facility] MED & PEDS [address] [place] [address] Gwen Crook MD [address] [place] [address] documented as of this encounter Visit Diagnoses Not on filedocumented in this encounter Additional Health Concerns Assessment Noted Time PHQ-9 Depression Total Score: 4 01/20/20 23 11:58 AM EST documented as of this encounter Care Teams Bale Piler Relationship Specialty Start Date End Date Gwen Crook MD [address] [place] [address] PCP - General Family Medicine 11/20/18 documented as of this encounter
--- OUTSIDE RECORDS SUMMARY | 2025-01-24 17:03 | XMS_ITS | Encounter Summary ---
Author Organization [employer] Address [address] [place] [address] [place] [address] Care Team Providers Care Ink Technician Name Role Phone Gwen Crook MD Primary Care Provider [phone] Reason for Visit * Reason Onset Date Comments triage 02/17/2023 Encounter Details Date Type Department Care Team ([facility] st Contact Info) Description 02/17/2023 Telephone [facility] MED & PEDS [address] [place], [place] [phone] Gwen Crook MD [address] [place] [address] triage Social History Tobacco Use Types Packs/Day [...] No answer LVM to return call to [facility] triage line. Protocol Used: No Contact or [...] Upcoming Encounters Date Type Department Care Team ([facility] st Contact Info) Description 01/29/2025 2:45 PM EDT Clinical Support [facility] MED & PEDS [address] [place] [address] Gracie Riggs RN [address] [place] [address] 02/20/2025 11:00 AM EDT Office Visit [facility] MED & PEDS [address] [place] [address] Gwen Crook MD [address] [place] [address] documented as of this encounter Visit Diagnoses Not on filedocumented in this encounter Additional Health Concerns Assessment Noted Time PHQ-9 Depression Total Score: 4 01/20/20 23 11:58 AM EST documented as of this encounter Care Teams Ink Technician Relationship Specialty Start Date End Date Gwen Crook MD [address] [place] [address] PCP - General Family Medicine 11/20/18 documented as of this encounter
--- OUTSIDE RECORDS SUMMARY | 2025-01-24 17:03 | XMS_ITS | Encounter Summary ---
Author Organization [employer] Address [address] [place] [address] 7 [place] [address] Care Team Providers Care Mold Designer Name Role Phone Gwen Crook MD Primary Care Provider [phone] Reason for Visit * Reason Comments Med Refill Encounter Details Date Type Department Care Team ([facility] Contact Info) Description 08/18/2023 Refill [facility] MED & PEDS [address] [place] [address] Gwen Crook MD [address] [place] [address] Social History Tobacco Use Types Packs/Day Years [...] Upcoming Encounters Date Type Department Care Team ([facility] Contact Info) Description 01/29/2025 2:45 PM EDT Clinical Support [facility] MED & PEDS [address] [place] [address] Gracie Riggs RN [address] [place], [place] [phone] 02/20/2025 11:00 AM EDT Office Visit [facility] MED & PEDS [address] [place] [address] Gwen Crook MD [address] [place] [address] documented as of this encounter Visit Diagnoses Not on filedocumented in this encounter Additional Health Concerns Assessment Noted Time PHQ-9 Depression Total Score: 4 01/20/20 23 11:58 AM EST documented as of this encounter Care Teams Mold Designer Relationship Specialty Start Date End Date Gwen Crook MD [address] [place] [address] PCP - General Family Medicine 11/20/18 documented as of this encounter
== END 2025-01-24 15:33 | disposition home or self-care (01) ==
LOC: HO.XRAY 15:32
PROVIDERS: PCP Pediatrics; Visit Provider Pediatrics
DX: M54.2 Cervicalgia (principal)
CPT/HCPCS: 72050

== ENCOUNTER → 2025-01-24 15:38 | Outpatient (BNV) | payer OTHER, SELFPAY | PROVIDERS: PCP Pediatrics; Visit Provider Radiology Diagnostic Radiology | DX: M47.812 Spondylosis without myelopathy or radiculopathy, cervical region (principal) | CPT/HCPCS: 72050 ==

== ENCOUNTER 2025-07-17 11:56 | Outpatient (REF) | payer OTHER, SELFPAY ==
--- OUTSIDE RECORDS SUMMARY | 2025-07-17 11:00 | XMS_ITS | Encounter Summary ---
Author Organization [employer] Address [address] [place] [address] 7 [place] [address] Care Team Providers Care International Marketing Coordinator Name Role Phone Gwen Crook MD Primary Care Provider [phone] Encounter Details Date Type Department Care Team (Latest Contact Info) Description 07/17/2025 11:00 AM EDT Office Visit [facility] MED & PEDS [address] [place], [place] [phone] Gwen Crook MD [address] [place], [place] [phone] Dysuria (Primary Dx); Primary hypertension; Severe obesity (CMS/HCC); Primary osteoarthritis of both knees Social History Tobacco Use Types Packs/Day Years Used Date Smoking Tobacco: Never Passive Smoke Exposure: Never Smokeless Tobacco: Never Depression Answer Date Recorded Patient Health Questionnaire-9 Score 6 07/17/2025 Patient Health Questionnaire-9 Score 6 07/17/2025 Last PHQ-9: Questionnaire Data Not on file 0 07/17/2025 Housing Stability Answer Date Recorded What is [...] Date Recorded Patient Health Questionnaire-2 Score 2 07/17/2025 Internet Access Answer Date Recorded Internet Access [...] Sign Reading Time Taken Comments Blood Pressure 114/66 07/17/2025 11:10 AM EDT Pulse 68 07/17/2025 11:10 AM EDT Temperature 36.3 C (97.3 F) 07/17/2025 11:10 AM EDT Respiratory Rate 24 07/17/2025 11:10 AM EDT Oxygen Saturation - - Inhaled Oxygen Concentration - - Weight 116 kg (256 lb) 07/17/2025 11:10 AM EDT Height - - Body Mass Index 45.35 04/21/2025 11:29 AM EDT documented in this encounter Functional Status * Over the past 2 weeks, how often have you been bothered by any of the following problems? Question Answer Date of Assessment Author Patient Health Questionnaire -2 Score 2 07/17/2025 11:11 AM EDT Mariam Lucia MA * Little interest or pleasure in doing things Answer Date of Assessment Author Several days 07/17/2025 11:11 AM EDT Char Galvan MA * Feeling down, depressed, or hopeless Answer Date of Assessment Author Several days 07/17/2025 11:11 AM EDT Char Galvan MA * Trouble falling or staying asleep, or sleeping too much Answer Date of Assessment Author Several days 07/17/2025 11:11 AM EDT Char Galvan MA * Feeling tired or having little energy Answer Date of Assessment Author Several days 07/17/2025 11:11 AM EDT Char Galvan MA * Poor appetite or overeating Answer Date of Assessment Author Not at all 07/17/2025 11:11 AM EDT Char Galvan MA * Feeling bad about yourself - or that you are a failure or have let yourself or your family down Answer Date of Assessment Author Not at all 07/17/2025 11:11 AM EDT Char Galvan MA * Trouble concentrating on things, such as reading the newspaper or watching television Answer Date of Assessment Author Several days 07/17/2025 11:11 AM EDT Char Galvan MA * Moving or speaking so slowly that other people could have noticed? Or the opposite - being so fidgety or restless that you have been moving around a lot more than usual. Answer Date of Assessment Author Several days 07/17/2025 11:11 AM EDT Char Galvan MA * Thoughts that you would be better off or hurting yourself in some way Answer Date of Assessment Author Not at all 07/17/2025 11:11 AM JULISAT Char Galvan MA * Patient Health Questionnaire-9 Score Answer Date of Assessment Author 6 07/17/2025 11:11 AM JULISAT Char Galvan MA * How difficult have these problems made it for you to do your work, take care of things at home, or get along with other people? Answer Date of Assessment Author Somewhat difficult 07/17/2025 11:11 AM EDT Char Dumont MA documented as of this encounter Plan of Treatment Upcoming Encounters Date Type Department Care Team (Late st Contact Info) Description 08/21/2025 2:30 PM EDT Clinical Support [facility] MED & PEDS [address] [place] [address] Gracie Riggs, RN [address] [place] [address] 09/16/2025 10:30 AM EDT Office Visit [facility] MED & PEDS [address] [place] [address] Gwen Crook MD [address] [place] [address] Scheduled Orders Name Type Priority Associated Diagnoses Orde r Schedule Culture, Urine, Routine Microbiology Routine Dysuria Expected: 07/17/2025 (Approximate), Expires: 07/17/2026 documented as of this encounter Procedures Procedure Name Priority Date/Time Associated Diagnosis Comments POCT URINALYSIS DIPSTICK Routine 07/17/2025 11:47 AM EDT Dysuria documented in this encounter Results * (ABNORMAL) POCT Urinalysis (07/17/2025 11:47 AM EDT) Color, UA Yellow Clarity, UA Clear Glucose, UA Negative Bilirubin, UA Negative Ketones, UA Negative Spec Grav, UA 1.030 Blood, UA Positive(A) Negative, None Detected Comment:large pH, UA 7.0 Protein, UA Few 15 Comment:30mg/dL Urobilinogen, UA 0.2 Leukocytes, UA Few 15(A) Negative, Rare, Trace Comment:small Nitrite, UA Positive(A) Negative, None Detected Appearance, UA clear QC Media Lot # [id number] Lot# Expiration Date Urine 07/17/2025 11:4 7 AM EDT Gwen Crook MD POINT OF CARE TEST ENTER/EDIT ORDERABLES Final Result documented in this encounter Visit Diagnoses Diagnosis Dysuria- Primary Primary hypertension Unspecified essential hypertension Severe obesity (CMS/HCC) Morbid obesity Primary osteoarthritis of both knees documented in this encounter Additional Health Concerns Assessment Noted Time PHQ-9 Depression Total Score: 6 07/17/20 25 11:11 AM EDT documented as of this encounter Care Teams International Marketing Coordinator Relationship Specialty Start Date End Date Gwen Crook MD [address] [place] [address] PCP - General Family Medicine 11/20/18 documented as of this encounter
--- OUTSIDE RECORDS SUMMARY | 2025-07-17 13:01 | XMS_ITS | Encounter Summary ---
Author Organization [employer] Address [address] [place] [address] 7 [place] [address] Care Team Providers Care Piston Maker Name Role Phone Gwen Crook MD Primary Care Provider [phone] Reason for Visit * Reason Comments Med Refill Encounter Details Date Type Department Care Team ([facility] st Contact Info) Description 06/02/2025 Refill [facility] CHC MED & PEDS [address] [place], [place] [phone] Gwen Crook MD [address] [place] [address] Lumbar disc herniation with radiculopathy Social History [...] the past 12 months, has t he [employer] gas, oil or water company threatened to [...] Description 08/21/2025 2:30 PM EDT Clinical Support [facility] MED & PEDS [address] [place] [address] Gracie Riggs RN [address] [place] [address] 09/16/2025 10:30 AM EDT Office Visit [facility] MED & PEDS [address] [place] [address] Gwen Crook MD [address] [place] [address] documented as of this encounter Visit Diagnoses Diagnosis Lumbar disc herniation with radiculopathy Displacement of lumbar intervertebral disc without myelopathy documented in this encounter Additional Health Concerns Assessment Noted Time PHQ-9 Depression Total Score: 4 01/20/20 23 11:58 AM EST documented as of this encounter Care Teams Piston Maker Relationship Specialty Start Date End Date Gwen Crook MD [address] [place] [address] PCP - General Family Medicine 11/20/18 documented as of this encounter
--- OUTSIDE RECORDS SUMMARY | 2025-07-17 13:01 | XMS_ITS | Encounter Summary ---
Author Organization [employer] Address [address] [place] [address] 7 [place] [address] Care Team Providers Care Heavy Equipment Sales Manager Name Role Phone Gwen Crook MD Primary Care Provider [phone] Reason for Visit * Reason Comments Med Refill Encounter Details Date Type Department Care Team ([facility] st Contact Info) Description 03/01/2024 Refill [facility] CHC MED & PEDS [address] [place], [place] [phone] Gwen Crook MD [address] [place] [address] Social History Tobacco Use Types Packs/Day Years [...] Upcoming Encounters Date Type Department Care Team ([facility] st Contact Info) Description 08/21/2025 2:30 PM EDT Clinical Support [facility] MED & PEDS [address] [place] [address] Gracie Riggs RN [address] [place] [address] 09/16/2025 10:30 AM EDT Office Visit [facility] MED & PEDS [address] [place] [address] Gwen Crook MD [address] [place] [address] documented as of this encounter Visit Diagnoses Not on filedocumented in this encounter Additional Health Concerns Assessment Noted Time PHQ-9 Depression Total Score: 4 01/20/20 23 11:58 AM EST documented as of this encounter Care Teams Heavy Equipment Sales Manager Relationship Specialty Start Date End Date Gwen Crook MD [address] [place] [address] PCP - General Family Medicine 11/20/18 documented as of this encounter
--- OUTSIDE RECORDS SUMMARY | 2025-07-17 13:01 | XMS_ITS | Encounter Summary ---
Author Organization [employer] Address [address] [place] [address] 7 [place] [address] Care Team Providers Care Bacteriologist Industrial Name Role Phone Gwen Crook MD Primary Care Provider [phone] Reason for Visit * Reason Comments Med Refill Encounter Details Date Type Department Care Team ([facility] st Contact Info) Description 02/11/2024 Refill [facility] CHC MED & PEDS [address] [place], [place] [phone] Petros Norris MD [address] [place] [address] Social History Tobacco Use Types Packs/Day Years [...] Description 08/21/2025 2:30 PM EDT Clinical Support [facility] MED & PEDS [address] [place] [address] Gracie Riggs RN [address] [place] [address] 09/16/2025 10:30 AM EDT Office Visit [facility] MED & PEDS [address] [place] [address] Gwen Crook MD [address] [place] [address] documented as of this encounter Visit Diagnoses Not on filedocumented in this encounter Additional Health Concerns Assessment Noted Time PHQ-9 Depression Total Score: 4 01/20/20 23 11:58 AM EST documented as of this encounter Care Teams Bacteriologist Industrial Relationship Specialty Start Date End Date Gwne Crook MD [address] [place] [address] PCP - General Family Medicine 11/20/18 documented as of this encounter
--- OUTSIDE RECORDS SUMMARY | 2025-07-17 13:01 | XMS_ITS | Encounter Summary ---
Author Organization [employer] Address [address] [place] [address] 7 [place] [address] Care Team Providers Care Spinning Mule Tender Name Role Phone Gwen Crook MD Primary Care Provider [phone] Reason for Visit * Reason Comments Med Refill Encounter Details Date Type Department Care Team ([facility] st Contact Info) Description 12/19/2024 Refill [facility] CHC MED & PEDS [address] [place], [place] [phone] Gwen Crook MD [address] [place] [address] Social History Tobacco Use Types Packs/Day Years [...] Upcoming Encounters Date Type Department Care Team ([facility] st Contact Info) Description 08/21/2025 2:30 PM EDT Clinical Support [facility] MED & PEDS [address] [place] [address] Gracie Riggs RN [address] [place] [address] 09/16/2025 10:30 AM EDT Office Visit [facility] MED & PEDS [address] [place] [address] Gwen Crook MD [address] [place] [address] documented as of this encounter Visit Diagnoses Not on filedocumented in this encounter Additional Health Concerns Assessment Noted Time PHQ-9 Depression Total Score: 4 01/20/20 23 11:58 AM EST documented as of this encounter Care Teams Spinning Mule Tender Relationship Specialty Start Date End Date Gwen Crook MD [address] [place] [address] PCP - General Family Medicine 11/20/18 documented as of this encounter
--- OUTSIDE RECORDS SUMMARY | 2025-07-17 13:01 | XMS_ITS | Encounter Summary ---
Author Organization [employer] Address [address] [place] [address] [place] [address] Care Team Providers Care Air Twister Winder Name Role Phone Gwen Crook MD Primary Care Provider [phone] Reason for Visit * Reason Onset Date Comments Med Refill 10/14/2024 Encounter Details Date Type Department Care Team ([facility] st Contact Info) Description 10/14/2024 Refill [facility] CHC MED & PEDS [address] [place], [place] [phone] Gwen Crook MD [address] [place] [address] Lumbar disc herniation with radiculopathy Social History [...] 30 MG tablet To be sent to: [facility] - [place], [place] - [address] [place] [address] documented in this encounter Plan of Treatment Upcoming Encounters Date Type Department Care Team (Late st Contact Info) Description 08/21/2025 2:30 PM EDT Clinical Support [facility] MED & PEDS [address] [place] [address] Gracie Riggs RN [address] [place] [address] 09/16/2025 10:30 AM EDT Office Visit [facility] MED & PEDS [address] [place] [address] Gwen Crook MD [address] [place] [address] documented as of this encounter Visit Diagnoses Diagnosis Lumbar disc herniation with radiculopathy Displacement of lumbar intervertebral disc without myelopathy documented in this encounter Additional Health Concerns Assessment Noted Time PHQ-9 Depression Total Score: 4 01/20/20 23 11:58 AM EST documented as of this encounter Care Teams Air Twister Winder Relationship Specialty Start Date End Date Gwen Crook MD [address] [place] [address] PCP - General Family Medicine 11/20/18 documented as of this encounter
--- OUTSIDE RECORDS SUMMARY | 2025-07-17 13:01 | XMS_ITS | Encounter Summary ---
Author Organization [employer] Address [address] [place] [address] [place] [address] Care Team Providers Care Visual Basic Programmer Name Role Phone Gwen Crook MD Primary Care Provider [phone] Reason for Visit * Reason Onset Date Comments Nurse Triage 01/24/2024 Encounter Details Date Type Department Care Team ([facility] st Contact Info) Description 01/24/[address] [facility] CHC MED & PEDS [address] [place], [place] [phone] Gwen Crook MD [address] [place] [address] Nurse Triage Social History Tobacco Use Types [...] the past 12 months, has t he [employer] threatened to shut off services in your [...] 01/24/2024 1:15 PM EST Triage call with [facility] Promoter ID [id number] Pt reports uses a walker for walking [...] referral and tramadol refill to PCP and [facility] nursing team for follow up. Pt [...] Description 08/21/2025 2:30 PM EDT Clinical Support [facility] MED & PEDS [address] [place] [address] Gracie Riggs RN [address] [place] [address] 09/16/2025 10:30 AM EDT Office Visit [facility] MED & PEDS [address] [place] [address] Gwen Crook MD [address] [place] [address] documented as of this encounter Visit Diagnoses Not on filedocumented in this encounter Additional Health Concerns Assessment Noted Time PHQ-9 Depression Total Score: 4 01/20/20 23 11:58 AM EST documented as of this encounter Care Teams Visual Basic Programmer Relationship Specialty Start Date End Date Gwen Crook MD [address] [place] [address] PCP - General Family Medicine 11/20/18 documented as of this encounter
--- OUTSIDE RECORDS SUMMARY | 2025-07-17 13:01 | XMS_ITS | Encounter Summary ---
Author Organization [employer] Address [address] [place] [address] 7 [place] [address] Care Team Providers Care Physician Practice Market Manager Name Role Phone Gwen Crook MD Primary Care Provider [phone] Reason for Visit * Reason Comments Med Refill Encounter Details Date Type Department Care Team ([facility] st Contact Info) Description 07/15/2025 Refill [facility] CHC MED & PEDS [address] [place], [place] [phone] Cate Shah MD [address] [place] [address] Social History Tobacco Use Types Packs/Day Years [...] Description 08/21/2025 2:30 PM EDT Clinical Support [facility] MED & PEDS [address] [place] [address] Gracie Riggs RN [address] [place] [address] 09/16/2025 10:30 AM EDT Office Visit [facility] MED & PEDS [address] [place] [address] Gwen Crook MD [address] [place] [address] documented as of this encounter Visit Diagnoses Not on filedocumented in this encounter Additional Health Concerns Assessment Noted Time PHQ-9 Depression Total Score: 4 01/20/20 23 11:58 AM EST documented as of this encounter Care Teams Physician Practice Market Manager Relationship Specialty Start Date End Date Gwen Crook MD [address] [place] [address] PCP - General Family Medicine 11/20/18 documented as of this encounter
--- OUTSIDE RECORDS SUMMARY | 2025-07-17 13:01 | XMS_ITS | Clinical Summary ---
Author Organization [employer] Address [address] [place] [address] 7 [place] [address] Care Team Providers Care Legal Advisor Name Role Phone Gwen Crook MD Primary Care Provider [phone] Allergies Active Allergy Reactions Criticality Noted Date [...] DAY AT THE SAME TIME EACH DAY 022 Active cholecalciferol (Vitamin D-3) 125 MCG (5000 [...] COUGH ASTHMA 18 g 1 024 Active cholecalciferol (D3 Super Strength) 50 MCG (2000 UT) capsule TAKE 1 CAPSULE BY MOUTH EVERY DAY 90 capsule 25 024 Active valsartan-hydroC HLOROthiazide (Diovan-HCT) 80-12.5 MG tablet TAKE 1 TABLET BY MOUTH EVERY DAY 90 tablet 3 Active loratadine (Claritin) 10 MG tablet TAKE 1 TABLET BY MOUTH EVERY DAY 90 tablet 2 Active omeprazole (PriLOSEC) [address] capsule TAKE 1 CAPSULE BY MOUTH TWICE A DAY 180 capsule 2 Active famotidine (Pepcid) 20 MG tablet TAKE 1 TABLET BY MOUTH TWICE A DAY 180 tablet 1 Active triamcinolone (Kenalog) 0.5 % ointment APPLY TO AFFECTED AREA TWICE A DAY 30 g 3 Active albuterol 108 (90 Base) MCG/ACT inhaler INHALE 2 PUFFS EVERY 6 HOURS IF NEEDED FOR WHEEZING. 18 g 1 Active Tirzepatide-Weig ht Management (Zepbound) 5 MG/0.5ML solutionIndicati ons:Severe obesity (CMS/HCC),Predia betes Inject 5 mg under the skin 1 (one) time per week. 2 mL 2 Active methocarbamol (Robaxin) 750 MG tablet TAKE ONE TABLET BY MOUTH TWICE DAILY NEEDED FOR PAIN 60 tablet Active cyanocobalamin (Vitamin B-12) 1000 MCG tablet TAKE 1 TABLET BY MOUTH EVERY DAY 90 tablet 3 Active diazePAM (Valium) 2 MG tablet TAKE 1 TABLET (2 MG) BY MOUTH IF NEEDED AT BEDTIME FOR ANXIETY. 30 tablet 025 2024 Active acetaminophen-co deine (Tylenol w/ Codeine #3) 300-30 MG tabletIndication s:Lumbar disc herniation with radiculopathy TAKE 1 TABLET BY MOUTH EVERY 6 HOURS NEEDED FOR SEVERE PAIN 30 tablet Active doxycycline (Vibramycin) 100 MG capsule Take 1 capsule (100 mg) by mouth 2 times daily for 14 days. 28 capsule 025 2024 Active sulfamethoxazole -trimethoprim (Bactrim DS) 800-160 MG tablet Take 1 tablet by mouth 2 times daily for 7 days. 14 tablet 025 2024 Active cyanocobalamin (Vitamin B-12) 1000 MCG tablet TAKE 1 TABLET BY MOUTH EVERY DAY 90 tablet 3 024 2024 Discontinued Tirzepatide-Weig ht Management (Zepbound) 2.5 MG/0.5ML solution auto-injectorInd ications:Prediab etes,Class 3 severe obesity due to excess calories with serious comorbidity and body mass index (BMI) of 40.0 to 44.9 in adult Inject 0.5 mL (2.5 mg) under the skin 1 (one) time per week. 2 mL 1 025 2024 Discontinued(T herapy completed) albuterol 108 (90 Base) MCG/ACT inhaler INHALE 2 PUFFS EVERY 6 HOURS IF NEEDED FOR WHEEZING. 18 g 1 025 2024 Discontinued methocarbamol (Robaxin) 750 MG tablet TAKE ONE TABLET BY MOUTH TWICE DAILY NEEDED FOR PAIN 60 tablet 025 2024 Discontinued(R eorder (will not trigger notification to Pharmacy)) acetaminophen-co deine (Tylenol w/ Codeine #3) 300-30 MG tabletIndication s:Lumbar disc herniation with radiculopathy Take 1 tablet by mouth every 6 (six) hours if needed for severe pain. 30 tablet 025 2024 Discontinued diazePAM (Valium) 2 MG tablet TAKE 1 TABLET (2 MG) BY MOUTH IF NEEDED AT BEDTIME FOR ANXIETY. 30 tablet 025 2024 Discontinued acetaminophen-co deine (Tylenol w/ Codeine #3) 300-30 MG tabletIndication s:Lumbar disc herniation with radiculopathy TAKE 1 TABLET BY MOUTH EVERY 6 HOURS NEEDED FOR SEVERE PAIN 30 tablet 025 2024 Discontinued Active Problems Problem Noted Date Diagnosed Date Mixed stress and urge urinary incontinence 02/20 Lymphedema of both lower extremities 01/19/2025 GERD (gastroesophageal reflux disease) 4 Acute bacterial [...] Encounters Date Type Department Care Team Description 07/17/2025 11:00 AM EDT Office Visit [facility] [address] [place] [address] Gwen Crook MD Dysuria (Primary Dx); Primary hypertension; Severe obesity (CMS/HCC); Primary osteoarthritis of both knees 07/17/2025 Travel 07/15/2025 Refill [facility] [address] [place] [address] Gwen Crook MD Lumbar disc herniation with radiculopathy 07/15/2025 Refill [facility] [address] [place] [address] Cate Shah MD 07/15/2025 Refill [facility] [address] [place] [address] Gwen Crook MD 07/14/2025 Telephone [facility] [address] [place] [address] Gwen Crook MD Nurse Triage 07/11/2025 Refill [facility] [address] [place] [address] Gwen Crook MD 06/25/2025 Orders Only [facility] [address] [place] [address] Gwen Crook MD Severe obesity ([facility]/HCC) (Primary Dx); Prediabetes 06/25/2025 Refill [facility] P[facility]S [address] [place] [address] Gwen Crook MD Prediabetes; Class 3 severe obesity due to excess calories with serious comorbidity and body mass index (BMI) of 40.0 to 44.9 in adult 06/23/2025 Refill [facility] [address] [place] [address] Gwen Crook MD Lumbar disc herniation with radiculopathy 06/11/2025 Refill [facility] [address] [place] [address] Gwen Crook MD 06/02/2025 Refill [facility] [address] [place] [address] Gwen Crook MD Lumbar disc herniation with radiculopathy 06/02/2025 Refill [facility] [address] [place] [address] Gwen Crook MD Lumbar disc herniation with radiculopathy 06/02/2025 Refill [facility] [address] [place] [address] Gwen Crook MD Lumbar disc herniation with radiculopathy 05/22/2025 2:30 PM EDT Clinical Support [facility] [address] [place] [address] Gracie Riggs, RN Bilateral primary osteoarthritis of knee 05/22/2025 Telephone [facility] [address] [place] [address] Gracie Riggs RN 05/22/2025 Travel 05/05/2025 Refill [facility] [address] [place] [address] Gwen Crook MD Lumbar disc herniation with radiculopathy 04/22/2025 Travel 04/22/2025 Refill [facility] [address] [place] [address] Gwen Crook MD 04/22/2025 Telephone [facility] [address] [place] [address] Gwen Crook MD Appointment Request 04/21/2025 11:00 AM EDT Office Visit [facility] [address] [place] [address] Gwen Crook MD Dermatitis (Primary Dx); Lymphedema of both lower extremities; Primary hypertension; Severe obesity (CMS/HCC) 04/21/2025 Travel 04/18/2025 Telephone [facility] [address] [place] [address] Gwen Crook MD Chart Prep from Last 3 Months Immunizations Immunization Administration Dates Next Due Influenza injectable quadriv [...] 24 07/17/2025 11:10 AM EDT Oxygen Saturation 99% 04/21/2025 11:29 AM EDT Inhaled Oxygen Concentration - - Weight 116 kg (256 lb) 07/17/2025 11:10 AM EDT Height 160 cm (5' 3 ) 04/21/2025 11:29 AM EDT Body Mass Index 45.35 04/21/2025 11:29 AM EDT Plan of Treatment Upcoming Encounters Date Type Department Care Team (Late st Contact Info) Description 08/21/2025 2:30 PM EDT Clinical Support [facility] [address] [place] [address] Gracie Riggs, TARAS [address] [place] [address] 09/16/2025 10:30 AM EDT Office Visit [facility] [address] [place] [address] Gwen Crook MD [address] [place] [address] Health Maintenance Due Date Last Done Comments CT Colonography 1969 Colonoscopy 1969 FIT 1969 FOBT 1969 HIV Screening 1969 Sigmoidoscopy 1969 Hepatitis C Screening 1987 Hepatitis B Vaccines (1 of 3 - 19+ 3-dose series) 1988 Pneumococcal Vaccine: 50+ Years (1 of 2 - PCV) 1988 Mammogram 2009 Zoster Vaccines (1 of 2) 2019 COVID-19 Vaccine (1 - 2023- season) 2024 Influenza Vaccine (#1) 2025 3, 11/18/2016, 08/20/2014, Additional history exists SDOH Screening 01/01/2026 01/01/2025 Alcohol/Substance Use Screening 01/16/2026 01/16/2025 Diabetes: Hemoglobin A1C 01/16/2026 025, 03/20/2024, 09/21/2022, Additional history exists Tobacco Screening 02/20/2026 02/20/2025 Depression Screening 07/17/2026 07/17/2025, 07/17/20 25 Disability Screening 07/17/2026 07/17/2025 DTaP/Tdap/Td Vaccines (2 - Td or Tdap) 11/18/2026 11/18/2016 Colorectal Cancer Screening 03/26/2027 FIT DNA/Cologuard 03/26/2027 03/26/2024 Cervical Cancer Screening 07/30/2027 HPV/Cotest 07/30/2027 Pap Smear 07/30/2027 07/30/2024, 07/30/2024 Lipid [...] age to complete this topic Meningococcal B Vaccine Aged Out No l onger eligible based on patient's age to complete [...] DIPSTICK Routine 07/17/2025 11:47 AM EDT Dysuria POCT JOBY-14 URINE DRUG SCREEN Routine 05/22/2025 2:47 PM EDT Bilateral primary osteoarthritis of knee HEMOGLOBIN A1C Routine 01/16/2025 1:55 PM EST Prediabetes THINPREP IMAGING SYSTEM PAP Routine 07/30/2024 2:17 PM EDT Encounter for gynecological examination with Papanicolaou smear of cervix LAB COLOGUARD COLON CANCER SCREEN Routine 03/26/2024 3:45 PM EDT Primary hypertension Severe obesity (CMS/HCC) Bilateral post-traumatic osteoarthritis of knee LIPID PANEL, STANDARD Routine 03/20/2024 9:34 AM EDT Primary hypertension Severe obesity (CMS/HCC) Bilateral post-traumatic osteoarthritis of knee from Last 3 Months or Most Recently Relevant to Health Maintenance Results * (ABNORMAL) POCT Urinalysis (07/17/2025 11:47 AM EDT) Pathologist [facility] Color, UA Yellow Clarity, UA Clear Glucose, [...] CARE TEST ENTER/EDIT ORDERABLES Final Result * (ABNORMAL) POCT JOBY-14 Urine Drug Screen (05/22/2025 2:47 PM EDT) THC Negative Negative Cocaine Screen, Urine Negative Negative Opiate Screen, Urine Positive(A) Negative Methamphetamine Screen Urine Negative Negative Amphetamine Screen, Urine Negative Negative Benzodiazepines Screen, Urine Positive(A) Negative Barbiturate Screen, Urine Negative Negative Methadone Screen, Urine Negative Negative Buprenophine Screen, Urine Negative Negative TCA, Urine Negative Negative MDMA Urine Negative Negative ng/mL Oxycodone Screen, Urine Negative Negative Phencyclidine (PCP), Urine Negative Negative Propoxyphene, Urine Negative Negative Fentanyl, Urine Negative Negative Urine Urine specimen obtained by clean catch procedure / Unknown 05/22/2025 2:47 PM EDT Narrative Gracie Riggs RN - 05/22/2025 2:47 PM EDT Internal Pass Control Lot# [id number] Exp: 09-19-26 Gwen Crook MD POINT OF CARE TEST ENTER/EDIT ORDERABLES Edited Result - Final * Hemoglobin A1c (01/16/2025 1:55 PM EST) Hemoglobin A1c 5.6 <6.0 % [facility] Comment:Hemoglobin A1C Refer ence Range Adults: 4.8 - 6.0 % Non diabetic: < 6.0 % Goal: < 7.0 %Additional Action Suggested: > 8.0 %Note: Hemoglobin A1c results are invalid for patients with abnormal amounts of HbF. Blood transfusions may impact the HbA1c concentration in the patient sample. Estimated Average Glucose 114 mg/dL [facility] Comment:eAG = Estimated ave rage glucose which is %A1C expressed asaverage glucose, using the formula of the W5P-PjpyotmMyjwpac Glucose study (ADAG), Diabetes Care, Vol.31,#8,Jun. 2007 Blood Venous blood specimen / Unknown 01/16/2025 1:55 PM EST 01/16/2025 6:11 PM EST Gwen Crook MD LAB BLOOD ORDERABLES Final Re sult [facility] [address] [place] [phone] * Pap Smear (07/30/2024 2:17 PM EDT) SOURCE: SEE NOTE [facility] Comment:None given Report Status: [facility] Clinical Information: SEE NOTE [facility] Comment:None given LMP: SEE NOTE [facility] Comment:NONE GIVEN Prev. PAP: SEE NOTE [facility] Comment:NONE GIVEN Prev. BX: SEE NOTE [facility] Comment:NONE GIVEN Statement Of Adequacy: SEE NOTE [facility] Comment:Satisfactory for carmen luation.Endocervical/transformation zone component absent. General Categorization: [facility] Interpretation/Result: SEE NOTE [facility] Comment:Cytology Results: Ne gative for intraepitheliallesion or malignancy. Cytology Comment SEE NOTE [facility] Comment:This Pap test has be en evaluated with computerassisted technology. Road Commissioner: SEE NOTE [facility] Comment:RPR, CT (ASCP) CT sc reening location: [address] Commissioner: [facility] Pathologist [facility] PAP Infection [facility] See Note SEE NOTE [facility] Comment:EXPLANATORY NOTE:The Pap is a screening test for cervical cancer. It isnot a diagnostic test and is subject to false negativeand false positive results. It is most reliable when asatisfactory sample, regularly obtained, is submittedwith relevant clinical findings and history, and whenthe Pap result is evaluated along with historic andcurrent clinical information.THIS TEST WAS PERFORMED AT:[employer] [address] [id number] SEVILLA MD Pap Vial Vaginal structure / Unknown 07/30/2024 2:17 PM EDT 07/30/2024 5:40 PM EDT Narrative [facility] - 08/05/2024 1:08 PM EDT SEE SCANNED RESULTS IN EMR Gwen Crook MD LAB PATHOLOGY ORDERABLES Maribell l Result [facility] [address] [place] [address] [phone] * Cologuard?? colon cancer screening (03/26/2024 3:45 PM EDT) Cologuard Result Negative Negative 04/02/20 10:19 AM EDT [facility] (CLIA #:[id number]) Comment: NEGATIVE TEST RESULT. A negative Cologuard result indicates a low likelihood that a colorectal cancer (CRC) or advanced adenoma (adenomatous polyps with more advanced pre-malignant features) is present. The chance that a person with a negative Cologuard test has a colorectal cancer is less than 1 in 1500 (negative predictive value >99.9%) or has an advanced adenoma is less than 5.3% (negative predictive value 94.7%). These data are based on a prospective cross-sectional study of 10,000 individuals at average risk for colorectal cancer who were screened with both Cologuard and colonoscopy. (Cristina Wagner et al, N Engl J Med 2014;370(14):5293-7880) The normal value (reference range) for this assay is negative. COLOGUARD RE-SCREENING RECOMMENDATION: Periodic colorectal cancer screening is an important part of preventive healthcare for asymptomatic individuals at average risk for colorectal cancer. Following a negative Cologuard result, the [place] Cancer Society and U.S. Multi-Society Task Force screening guidelines recommend a Cologuard re-screening interval of 3 years. References: [place] [employer] Guideline for Colorectal Cancer Screening: https://www.cancer.org/cancer/hllct-liajoc-syjqru/pnaihubuw-rhhhbugfy-gxzmogn/ac s-rec ommendations.html.; Janes DK, Abrahan CR, Humberto BakerK, Colorectal Cancer Screening: Recommendations for Physicians and Patients from the U.S. Multi-Society Task Force on Colorectal Cancer Screening , Am J Gastroenterology 2017; 112:1996-9560. TEST DESCRIPTION: Composite algorithmic analysis of stool DNA-biomarkers with hemoglobin immunoassay. Quantitative values of individual biomarkers are not [...] (Cristina Matos al, N Engl J Med 2014;370(14):0256-2362.) Cologuard may produce a false negative or false positive result (no colorectal cancer or precancerous polyp present at colonoscopy follow up). A negative Cologuard test result does not guarantee the absence of CRC or advanced adenoma (pre-cancer). The current Cologuard screening interval is every 3 years. ([place] [employer] and U.S. Multi-Society Task Force). Cologuard performance data in a 10,000 patient pivotal study using colonoscopy as the reference method can be accessed at the following location: www.[employer]/results. Additional description of the Cologuard test process, warnings and precautions can be found at www.[employer]Lingual[employer].QM Power. Stool specimen (specimen) 03/26/2024 3:45 PM EDT 03/27/2024 11:04 AM EDT Gwen Crook MD LAB MOLECULAR DIAGNOSTICS ORD ERABLES Final Result [facility] (CLIA #:[id number]) [place] [address], * (ABNORMAL) Lipid Panel, Standard (03/20/2024 9:34 AM EDT) Triglycerides 84 <150 mg/dL [facility] Comment:Desirable Triglyceri de: less than 150 mg/dLBorderline High Triglyceride 150-199 mg/dLHigh Triglyceride: 200-499 mg/dLVery High Triglyceride: greater than or equal to 5OO mg/dL Cholesterol 183 <200 mg/dL [facility] Comment:Desirable Cholestero l: less than 200 mg/dLBorderline High Cholesterol: 200-239 mg/dLHigh Cholesterol: greater than 239 mg/dL LDL Cholesterol Calculated 105(H) <100 mg/dL [facility] Comment:Desirable LDL: less than 100 mg/dLNear Optimal/Above Optimal LDL: 110- 129 mg/dLBorderline High LDL: 130-159 mg/dLHigh LDL: 160-189 mg/dLVery High LDL: greater than or equal to 190 mg/dL HDL Cholesterol 62 >40 mg/dL [facility] Comment:Desirable HDL: great er than 40 mg/dL Note: This HDL assay may give artificially low results in patients with liver disease. Blood Venous blood specimen / Unknown 03/20/2024 9:34 AM EDT 03/20/2024 2:28 PM EDT us Gwen Crook MD LAB BLOOD ORDERABLES Final Re sult [facility] [address] [place] [address] [phone] from Last 3 Months or Most Recently Relevant to Health Maintenance Insurance [facility] ONE CARE < 65 Care Teams Legal Advisor Relationship Specialty Start Date End Date Gwen Crook MD [address] [place] [phone] PCP - General Family Medicine 11/20/18
--- OUTSIDE RECORDS SUMMARY | 2025-07-17 13:01 | XMS_ITS | Clinical Summary ---
Author Organization [facility] it[facility] Address [address] [place] [address] Care Team Providers Care Steam Engineer Name Role Phone Unavailable Primary Care [...] 2) 2019 Colorectal Cancer Screening: Colonoscopy 10/23/2022 HIV Screening 10/23/2022 Hepatitis C Screening 10/23/2022 Social Influencers of Health Screening 10/23/2022 COVID-19 Vaccine ( - 2023-2 5 season) 2024 Depression Screening 11/20/2024 Influenza Vaccine (#1) 2025 HIB Vaccines Aged Out No longer eligi [...]
--- OUTSIDE RECORDS SUMMARY | 2025-07-17 13:01 | XMS_ITS | Encounter Summary ---
Author Organization [employer] Address [address] [place] [address] Care Team Providers Care Bolt Header Name Role Phone Gwen Crook MD Primary Care Provider [phone] Reason for Visit * Reason Comments Med Refill Encounter Details Date Type Department Care Team (Late Contact Info) Description 12/16/2022 Refill [facility] [address] [place], [place] [phone] Paige Juares MD [address] [place] [address] Social History Tobacco Use Types Packs/Day Years [...] Department Care Team (Late Contact Info) Description 08/21/2025 2:30 PM EDT Clinical Support [facility] [address] [place] [address] Gracie Riggs, TARAS [address] [place], [place] [phone] 09/16/2025 10:30 AM EDT Office Visit [facility] [address] [place] [address] Gwen Crook MD [address] [place], [place] [phone] documented as of this encounter Visit Diagnoses Not on filedocumented in this encounter Care Teams Bolt Header Relationship Specialty Start Date End Date Gwen Crook MD [address] [place] [phone] PCP - General Family Medicine 11/20/18 documented as of this encounter
--- OUTSIDE RECORDS SUMMARY | 2025-07-17 13:01 | XMS_ITS | Encounter Summary ---
Author Organization [employer] Address [address] [facility] 7 [place] [address] Care Team Providers Care Roll Or Tape Edge Machine Operator Name Role Phone Gwen Crook MD Primary Care Provider [phone] Reason for Visit * Reason Onset Date Comments Nurse Triage 11/28/2023 Encounter Details Date Type Department Care Team ([facility] st Contact Info) Description 11/28/2023 Telephone [facility] [address] [place] [address] Gwen Crook MD [address] [place] [address] Nurse Triage Social History Tobacco Use Types [...] No answer LVM to return call to [facility] triage line [phone]. * Telephone Encounter - Cisco Murphy - 11/28/2023 2:26 PM EST Symptoms: Headache, Dizziness Outcome: Schedule an urgent appointment (within 4 hours) or talk to a nurse or provider soon Reason: Getting worse The caller accepted this outcome documented in this encounter Plan of Treatment Upcoming Encounters Date Type Department Care Team (Late st Contact Info) Description 08/21/2025 2:30 PM EDT Clinical Support [facility] [address] [place] [address] Gracie Riggs RN [address] [place] [address] 09/16/2025 10:30 AM EDT Office Visit [facility] [address] [place] [address] Gwen Crook MD [address] [place] [address] documented as of this encounter Visit Diagnoses Not on filedocumented in this encounter Additional Health Concerns Assessment Noted Time PHQ-9 Depression Total Score: 4 01/20/20 23 11:58 AM EST documented as of this encounter Care Teams Roll Or Tape Edge Machine Operator Relationship Specialty Start Date End Date Gwen Crook MD [address] [place] [address] PCP - General Family Medicine 11/20/18 documented as of this encounter
--- OUTSIDE RECORDS SUMMARY | 2025-07-17 13:01 | XMS_ITS | Encounter Summary ---
Author Organization [employer] Address [address] [place] [address] [place] [address] Care Team Providers Care Veneer Taper Name Role Phone Gwen Crook MD Primary Care Provider [phone] Reason for Visit * Reason Comments Med Refill Encounter Details Date Type Department Care Team (Late st Contact Info) Description 07/15/2025 Refill [facility] [address] [place] [address] Gwen Crook MD [address] [place], [place] [phone] Social History Tobacco Use Types Packs/Day Years [...] Description 08/21/2025 2:30 PM EDT Clinical Support [facility] [address] [place] [address] Gracie Riggs RN [address] [place] [address] 09/16/2025 10:30 AM EDT Office Visit [facility] [address] [place] [address] Gwen Crook MD [address] [place] [address] documented as of this encounter Visit Diagnoses Not on filedocumented in this encounter Additional Health Concerns Assessment Noted Time PHQ-9 Depression Total Score: 4 01/20/20 23 11:58 AM EST documented as of this encounter Care Teams Veneer Taper Relationship Specialty Start Date End Date Gwen Crook MD [address] [place] [address] PCP - General Family Medicine 11/20/18 documented as of this encounter
--- OUTSIDE RECORDS SUMMARY | 2025-07-17 13:01 | XMS_ITS | Encounter Summary ---
Author Organization [email or web address] Address [address] [place] [address] 7 [place] [address] Care Team Providers Care Night Guard Name Role Phone Gwen Crook MD Primary Care Provider [phone] Reason for Visit * Reason Comments Med Change Request Encounter Details Date Type Department Care Team ([facility] st Contact Info) Description 03/19/2025 Refill [facility]EDS [address] [place], [place] [id number] Gwen Crook MD 505 [place] [address] Social History Tobacco Use Types Packs/Day Years [...] 08/21/2025 2:30 PM EDT Clinical Support [facility] MED & PEDS [address] [place] [address] Gracie Riggs RN 505 [place] [address] 09/16/2025 10:30 AM EDT Office Visit [facility] MED & PEDS [address] [place] [address] Gwen Crook MD 505 [place] [address] documented as of this encounter Visit Diagnoses Not on filedocumented in this encounter Additional Health Concerns Assessment Noted Time PHQ-9 Depression Total Score: 4 01/20/20 23 11:58 AM EST documented as of this encounter Care Teams Night Guard Relationship Specialty Start Date End Date Gwen Crook MD 505 [place] [address] PCP - General Family Medicine 11/20/18 documented as of this encounter
--- OUTSIDE RECORDS SUMMARY | 2025-07-17 13:01 | XMS_ITS | Encounter Summary ---
Author Organization [employer] Address [address] [facility] 7t [place] [address] Care Team Providers Care Test Clerk Name Role Phone Gwen Crook MD Primary Care Provider [phone] Encounter Details Date Type Department Care Team ([facility] st Contact Info) Description 12/02/2024 Orders Only [facility] MED & PEDS [address] [place] [address] Provider, MD Owen Social History Tobacco Use [...] Upcoming Encounters Date Type Department Care Team ([facility] st Contact Info) Description 08/21/2025 2:30 PM EDT Clinical Support [facility] MED & PEDS 505 [place] [address] Gracie Riggs, TARAS 505 [place] [address] 09/16/2025 10:30 AM EDT Office Visit [facility] MED & PEDS [address] [place] [address] Gwen Crook MD 505 [place] [address] documented as of this encounter Procedures Procedure [...] documented as of this encounter Care Teams Test Clerk Relationship Specialty Start Date End Date Gwen Crook MD 505 [place] [address] PCP - General Family Medicine 11/20/18 documented as of this encounter
--- OUTSIDE RECORDS SUMMARY | 2025-07-17 13:02 | XMS_ITS | Encounter Summary ---
Author Organization [employer] Address [address] [place] [address] [place] [address] Care Team Providers Care Postal Inspector Name Role Phone Gwen Crook MD Primary Care Provider [phone] Reason for Visit * Reason Onset Date Comments Appointment Request 11/28/2022 Encounter Details Date Type Department Care Team (Late Contact Info) Description 11/28/2022 Telephone [facility] MEDICINE [address] [place] [address] Gwen Crook MD [address] [place] [address] Appointment Request Social History Tobacco Use Types [...] requesting to r/s appt 11/29/22 at 2:30 (AUTOMOTIVE MACHINIST APPRENTICE Initial [place]) Please contact pt at [phone] documented in this encounter Plan of Treatment Upcoming Encounters Date Type Department Care Team (Late Contact Info) Description 08/21/2025 2:30 PM EDT Clinical Support [facility] MED & PEDS 505 [place] [address] Gracie Riggs, TARAS 505 [place] [address] 09/16/2025 10:30 AM EDT Office Visit [facility] MED & PEDS [address] [place] [address] Gwen Crook MD [address] [place] [address] documented as of this encounter Visit Diagnoses Not on filedocumented in this encounter Care Teams Postal Inspector Relationship Specialty Start Date End Date Gwen Crook MD 505 [place] [address] PCP - General Family Medicine 11/20/18 documented as of this encounter
--- OUTSIDE RECORDS SUMMARY | 2025-07-17 13:02 | XMS_ITS | Encounter Summary ---
Author Organization [employer] Address [address] [place] [address] 7 [place] [address] Care Team Providers Care Ethics Manager Name Role Phone Gwen Crook MD Primary Care Provider [phone] Reason for Visit * Reason Comments Med Refill Encounter Details Date Type Department Care Team ([facility] st Contact Info) Description 07/15/2025 Refill [facility] MED & PEDS [address] [place], [place] [phone] Gwen Crook MD 505 [place] [address] Lumbar disc herniation with radiculopathy Social History [...] the past 12 months, has t he [employer], gas, oil or water company threatened to [...] 2:30 PM EDT Clinical Support [facility] MED & PEDS 505 [place] [address] Gracie Riggs RN 505 [place] [address] 09/16/2025 10:30 AM EDT Office Visit [facility] MED & PEDS 505 [place] [address] Gwen Crook MD 505 [place] [address] documented as of this encounter Visit Diagnoses Diagnosis Lumbar disc herniation with radiculopathy Displacement of lumbar intervertebral disc without myelopathy documented in this encounter Additional Health Concerns Assessment Noted Time PHQ-9 Depression Total Score: 4 01/20/20 23 11:58 AM EST documented as of this encounter Care Teams Ethics Manager Relationship Specialty Start Date End Date Gwen Crook MD 505 [place] [address] PCP - General Family Medicine 11/20/18 documented as of this encounter
--- OUTSIDE RECORDS SUMMARY | 2025-07-17 13:02 | XMS_ITS | Encounter Summary ---
Author Organization [employer] Address [address] [place] [address] [place] [address] Care Team Providers Care Drum Maker Name Role Phone Gwen Crook MD Primary Care Provider [phone] Reason for Visit * Reason Onset Date Comments triage 02/17/2023 Encounter Details Date Type Department Care Team ([facility] st Contact Info) Description 02/17/2023 Telephone [facility] CH[facility] MED & PEDS [address] [place], [place] [phone] Gwen Crook MD 505 [place] [address] triage Social History Tobacco Use Types Packs/Day [...] No answer LVM to return call to [facility] triage line. Protocol Used: No Contact [...] Upcoming Encounters Date Type Department Care Team ([facility] st Contact Info) Description 08/21/2025 2:30 PM EDT Clinical Support [facility] MED & PEDS 505 [place] [address] Gracie Riggs RN 505 [place] [address] 09/16/2025 10:30 AM EDT Office Visit [facility] MED & PEDS [address] [place] [address] Gwen Crook MD 505 [place] [address] documented as of this encounter Visit Diagnoses Not on filedocumented in this encounter Additional Health Concerns Assessment Noted Time PHQ-9 Depression Total Score: 4 01/20/20 23 11:58 AM EST documented as of this encounter Care Teams Drum Maker Relationship Specialty Start Date End Date Gwen Crook MD 505 [place] [address] PCP - General Family Medicine 11/20/18 documented as of this encounter
--- OUTSIDE RECORDS SUMMARY | 2025-07-17 13:02 | XMS_ITS | Encounter Summary ---
Author Organization [employer] Address [address] [place] [address] [place] [address] Care Team Providers Care Meteorological Engineer Name Role Phone Gwen Crook MD Primary Care Provider [phone] Reason for Visit * Reason Comments Med Refill Encounter Details Date Type Department Care Team (Late Contact Info) Description 02/20/2023 Refill [facility] MED & PEDS [address] [place] [address] Gwen Crook MD 505 [place] [address] Bilateral primary osteoarthritis of knee Social History [...] PM EDT Clinical Support [facility] MED & PEDS [address] [place] [address] Gracie Riggs RN 505 [place] [address] 09/16/2025 10:30 AM EDT Office Visit [facility] MED & PEDS 505 [place] [address] Gwen Crook MD 505 [place] [address] documented as of this encounter Visit Diagnoses Diagnosis Bilateral primary osteoarthritis of knee documented in this encounter Additional Health Concerns Assessment Noted Time PHQ-9 Depression Total Score: 4 01/20/20 23 11:58 AM EST documented as of this encounter Care Teams Meteorological Engineer Relationship Specialty Start Date End Date Gwen Crook MD 505 [place] [address] PCP - General Family Medicine 11/20/18 documented as of this encounter
--- OUTSIDE RECORDS SUMMARY | 2025-07-17 13:02 | XMS_ITS | Encounter Summary ---
Author Organization [employer] Address [address] [place] [address] [place] [address] Care Team Providers Care Lottery Manager Name Role Phone Gwen Crook MD Primary Care Provider [phone] Reason for Visit * Reason Comments Med Refill Encounter Details Date Type Department Care Team ([facility] Contact Info) Description 08/18/2023 Refill [facility] MED & PEDS [address] [place] [address] Gwen Crook MD [address] [place] [address] Social History Tobacco Use Types Packs/Day Years [...] Upcoming Encounters Date Type Department Care Team ([facility] Contact Info) Description 08/21/2025 2:30 PM EDT Clinical Support [facility] MED & PEDS [address] [place] [address] Gracie Riggs RN [address] [place] [address] 09/16/2025 10:30 AM EDT Office Visit [facility] MED & PEDS 505 [place] [address] Gwen Crook MD 505 [place] [address] documented as of this encounter Visit Diagnoses Not on filedocumented in this encounter Additional Health Concerns Assessment Noted Time PHQ-9 Depression Total Score: 4 01/20/20 23 11:58 AM EST documented as of this encounter Care Teams Lottery Manager Relationship Specialty Start Date End Date Gwen Crook MD 505 [place] [address] PCP - General Family Medicine 11/20/18 documented as of this encounter
--- OUTSIDE RECORDS SUMMARY | 2025-07-17 13:02 | XMS_ITS | Encounter Summary ---
Author Organization [email or web address] Address [address] [place] [address] Care Team Providers Care Senior Net Application Developer Name Role Phone Gwen Crook MD Primary Care Provider [phone] Reason for Visit * Reason Onset Date Comments Nurse Triage 07/14/2025 Encounter Details Date Type Department Care Team ([facility] st Contact Info) Description 07/14/2025 Telephone [facility] MEDICINE [address] [place] [address] Gwen Crook MD [address] [place] [address] Nurse Triage Social History Tobacco Use Types [...] Telephone Encounter - Martha Ellison RN - 07/14/2025 2:15 PM EDT Per chart review pt seen at [facility] following a fall. Pt had a fall with resulting left hip pain, hematoma left buttock. Pt to have PCP and ortho follow up. Given walker, and rx for lidocaine (Lidoderm) 5 % patch Apply 1 patch topically 1 (one) time each day. Remove & discard patch within 12 hours or as directed methocarbamol (ROBAXIN) 500 mg tablet Take 1 tablet (500 mg total) by mouth 2 (two) times a day if needed for muscle spasms for up to 10 days. Call returned to Simran Murphy to triage below at [phone]. Confirms above information. Pt states was able to picking machine operator helper rx for methocarbamol. Not lidocaine patches due to cost. Per pt returned a few days ago. Per pt continues to have left hip pain. 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 Pt is taking Tylenol with mild relief. Pt wants PCP follow up as continues with pain even with care advise provided at ER. Agrees to visit this week. Reviewed [facility] operating hours and that wait times vary. Reviewed home care advise, ER precautions and reasons to call back. Protocol Used: Hip Injury (Adult) Protocol-Based Disposition: See in Office or Video Visit within 3 Days Future Appointments Date Time Provider Department Center 07/17/2025 11:00 AM Gwen Crook MD [facility] 08/21/2025 2:30 PM Gracie Riggs RN [facility] Insurance verified as active per Real Time Eligibility in [facility]. Positive Triage Question: * Injury and pain has not improved after 3 days * All higher-acuity triage questions were negative Care Advice Discussed: * Reassurance and Education - Direct Blow (Minor Bruise, Contusion) * Use Heat on Area After 48 Hours * Reasons To Call Back - Severe pain lasts over 2 hours after pain medicine and ice pack - Pain not improved after 3 days - Swelling or bruise becomes over 2 inches (5 cm) - You become worse * Telephone Encounter - Uriel Lam - 07/14/2025 1:56 PM EDT Patient calling to report ED visit on : Date: 06/29/25 Hospital: [facility] Seen for: had fell/ bruise glutes. No broken bones. Symptomatic Yes *if yes message should go to Triage Pt reports body aches. Nigerien speaks documented in this encounter Plan of Treatment Upcoming Encounters Date Type Department Care Team (Late st Contact Info) Description 08/21/2025 2:30 PM EDT Clinical Support [facility] MED & PEDS [address] [place] [address] Gracie Riggs RN 505 [place] [address] 09/16/2025 10:30 AM EDT Office Visit [facility] MED & PEDS [address] [place] [address] Gwen Crook MD [address] [place] [address] documented as of this encounter Visit Diagnoses Not on filedocumented in this encounter Additional Health Concerns Assessment Noted Time PHQ-9 Depression Total Score: 4 01/20/20 23 11:58 AM EST documented as of this encounter Care Teams Senior Net Application Developer Relationship Specialty Start Date End Date Gwen Crook MD [address] [place] [address] PCP - General Family Medicine 11/20/18 documented as of this encounter
--- OUTSIDE RECORDS SUMMARY | 2025-07-17 13:02 | XMS_ITS | Encounter Summary ---
Author Organization [employer] Address [address] [place] [address] 7 [place] [address] Care Team Providers Care O[employer] Truck Driver Name Role Phone Gwen Crook MD Primary Care Provider [phone] Encounter Details Date Type Department Care Team (Latest Contact Info) Description 07/17/2025 Travel Social History Tobacco Use Types Packs/Day [...] AM EDT documented as of this encounter Functional Status * Over the [...] Author Not at all 07/17/2025 11:11 AM Char Lazcano [place] * Feeling bad about yourself - or that you are a failure or have let yourself or your family down Answer Date of Assessment Author Not at all 07/17/2025 11:11 AM EDChar Mayes [place] * Trouble concentrating on things, such as reading the newspaper or watching television Answer Date of Assessment Author Several days 07/17/2025 11:11 AM Char Lazcano [place] * Moving or speaking so slowly that other people could have noticed? Or the opposite - being so fidgety or restless that you have been moving around a lot more than usual. Answer Date of Assessment Author Several days 07/17/2025 11:11 AM Char Lazcano [place] * Thoughts that you would be better off or hurting yourself in some way Answer Date of Assessment Author Not at all 07/17/2025 11:11 AM EDT Char Galvan MA * Patient Health Questionnaire-9 Score Answer Date of Assessment Author 6 07/17/2025 11:11 AM EDT Char Galvan MA * How difficult have [...] 08/21/2025 2:30 PM EDT Clinical Support [facility] MED & PEDS [address] [place] [address] Gracie Riggs RN [address] [place] [address] 09/16/2025 10:30 AM EDT Office Visit [facility] MED & PEDS [address] [place] [address] Gwen Crook MD [address] [place] [address] documented as of this encounter Visit Diagnoses Not on filedocumented in this encounter Additional Health Concerns Assessment Noted Time PHQ-9 Depression Total Score: 6 07/17/20 25 11:11 AM EDT documented as of this encounter Care Teams [employer] Truck Driver Relationship Specialty Start Date End Date Gwen Crook MD [address] [place] [address] PCP - General Family Medicine 11/20/18 documented as of this encounter
== END 2025-07-17 11:57 | disposition home or self-care (01) ==
LOC: HO.CHCLNP 11:56
PROVIDERS: Visit Provider Pediatrics
DX: R30.0 Dysuria (principal)
CPT/HCPCS: 87086; 87088; 87186

== ENCOUNTER → 2025-08-26 11:45 | Outpatient (BNV) | payer OTHER, SELFPAY | PROVIDERS: PCP Pediatrics; Visit Provider Internal Medicine | DX: Z12.31 Encounter for screening mammogram for malignant neoplasm of breast (principal) | CPT/HCPCS: 77063; 77067 ==

== ENCOUNTER 2025-08-26 11:52 | Outpatient (REF) | payer OTHER, SELFPAY ==
--- OUTSIDE RECORDS SUMMARY | 2025-08-21 14:30 | XMS_ITS | Encounter Summary ---
Author Organization [employer] Address [address] [place] [address] 7 [place] [address] Care Team Providers Care Splicer Helper Name Role Phone Gwen Crook MD Primary Care Provider [phone] Reason for Visit * Reason Comments COMMUNICATIONS TECH Encounter Details Date Type Department Care Team (Latest Contact Info) Description 08/21/2025 2:30 PM EDT Clinical Support [facility] MED & PEDS [address] [place] [address] Gracie Riggs, TARAS [address] [place] [address] Neck pain, bilateral posterior (Primary Dx) Social History Tobacco Use Types Packs/Day Years [...] as of this encounter Progress Notes * Gracie Riggs RN - 08/21/2025 2:30 PM EDT SUBJECTIVE: Simran Murphy is a 54 y.o. year old female who presents for COMMUNICATIONS TECH Preferred language for medical information: Wolof Interpreted needed: No Simran Murphy does report adherence to Tylenol # 3 (Acetaminophen/Codeine 300 mg/ 30 mg, take 1 tablet every 6 hours PRN, last refilled 08/09/25. Diazepam 2mg 1 tab at bedtime last refilled 07/16/25. The patient last took Tylenol # 3 (Acetaminophen/Codeine 300 mg /30 mg on: 08/21/25 Last took Diazepam 08/20/25. Medication is: 50% % effective at alleviating pain. OBJECTIVE: EXECUTIVE OFFICE MANAGER checked: 08/21/2025 Pill count completed for Tylenol # 3 (Acetaminophen/Codeine 300 mg /30 mg, count today is 4 , anticipated count should be 0, this is as expected. Diazepam count is 4, 0 expected. Last PCP visit: 07/17/25 BPI completed on: 05/22/2025 , pain severity score: 8, activity interference score: 5 BPI completed on: 04/25/24 , pain severity score: 7.5, activity interference score: 5 JAMISON 7 05/22/25. Score 2. Previous JAMISON-7 done: 04/25/24, score: 9 Controlled substance agreement signed: Controlled Substance Agreement 08/21/2025 COMMUNICATIONS TECH Tier: 3 Current Medications[1] Smoking status: Denies ETOH use: Denies Illicit substances: Denies Marijuana use: No , Lab Results Component Value Date POCTHC Negative 08/21/2025 POCCOCAINEUR Negative 08/21/2025 POCOPIATEUR Positive (A) 08/21/2025 DOAUR Negative 08/21/2025 POCAMPHETAMI Negative 08/21/2025 POCBENZODIUR Positive (A) 08/21/2025 POCBARBSCRN Negative 08/21/2025 POCMETHADOUR Negative 08/21/2025 POCBUPSCRN Negative 08/21/2025 POCTCAUR Negative 08/21/2025 POCMDMAUR Negative 08/21/2025 POCOXYCODONE Negative 08/21/2025 POCPHENCYCUR Negative 08/21/2025 PROPOXUR Negative 08/21/2025 FENTANYLURIN Negative 08/21/2025 ASSESSMENT: Encounter Diagnosis Name Primary? Neck pain, bilateral posterior Yes PLAN: Information on pain group given: Previously discussed Information on acupuncture given: Previously discussed Narcan education provided: Previously discussed Narcan prescription: inactive- refill request submitted to provider Simran Murphy will continue taking medication as prescribed and follow up at the next COMMUNICATIONS TECH visit orsooner if needed. Simran Murphy has verbalized understanding of care plan. Future Appointments Date Time Provider Department Center 09/16/2025 10:30 AM Gwen Crook MD [facility] 12/25/2025 2:30 PM Gracie Riggs RN [facility] Gracie Riggs RN [1] Current Outpatient Medications: Acetaminophen Extra Strength 500 MG tablet, TAKE 2 TABLETS BY MOUTH EVERY 8 HOURS NEEDED FOR PAIN, Disp: , Rfl: acetaminophen-codeine (Tylenol w/ Codeine #3) 300-30 MG tablet, TAKE 1 TABLET BY MOUTH EVERY 6 HOURS NEEDED FOR SEVERE PAIN, Disp: 30 tablet, Rfl: 0 albuterol (ProAir HFA) 108 (90 Base) MCG/ACT inhaler, TAKE 2 PUFFS BY MOUTH EVERY 4 6 HOURS NEEDED COUGH ASTHMA, Disp: 18 g, Rfl: 1 albuterol 108 (90 Base) MCG/ACT inhaler, INHALE 2 PUFFS EVERY 6 HOURS IF NEEDED FOR WHEEZING., Disp: 18 g, Rfl: 1 Breo Ellipta 100-25 MCG/ACT aerosol powder , INHALE 1 PUFF BY INHALATION ROUTE EVERY DAY AT THE SAME TIME EACH DAY, Disp: , Rfl: cholecalciferol (D3 Super Strength) 50 MCG (2000 UT) capsule, TAKE 1 CAPSULE BY MOUTH EVERY DAY, Disp: 90 capsule, Rfl: 25 cholecalciferol (Vitamin D-3) 125 MCG (5000 UT) capsule, Take 125 mcg by mouth in the morning., Disp: , Rfl: cyanocobalamin (Vitamin B-12) 1000 MCG tablet, TAKE 1 TABLET BY MOUTH EVERY DAY, Disp: 90 tablet, Rfl: 3 diazePAM (Valium) 2 MG tablet, TAKE 1 TABLET (2 MG) BY MOUTH IF NEEDED AT BEDTIME FOR ANXIETY., Disp: 30 tablet, Rfl: 0 EPINEPHrine (Epipen) 0.3 MG/0.3ML injection syringe, INJECT 1 PEN SUBCUTANEOUSLY NEEDED FOR SEVERE ALLERGY, Disp: 1 each, Rfl: 3 famotidine (Pepcid) 20 MG tablet, TAKE 1 TABLET BY MOUTH TWICE A DAY, Disp: 180 tablet, Rfl: 1 loratadine (Claritin) 10 MG tablet, TAKE 1 TABLET BY MOUTH EVERY DAY, Disp: 90 tablet, Rfl: 3 loratadine (Claritin) 10 MG tablet, TAKE 1 TABLET BY MOUTH EVERY DAY, Disp: 90 tablet, Rfl: 2 methocarbamol (Robaxin) 750 MG tablet, TAKE ONE TABLET BY MOUTH TWICE DAILY NEEDED FOR PAIN, Disp: 60 tablet, Rfl: 0 omeprazole (PriLOSEC) [address] capsule, TAKE 1 CAPSULE BY MOUTH TWICE A DAY, Disp: 180 capsule, Rfl: 2 sucralfate (Carafate) 1 g tablet, Take 1 g by mouth 4 times daily., Disp: , Rfl: Tirzepatide-Weight Management (Zepbound) 5 MG/0.5ML solution, Inject 5 mg under the skin 1 (one) time per week., Disp: 2 mL, Rfl: 2 triamcinolone (Kenalog) 0.5 % ointment, APPLY TO AFFECTED AREA TWICE A DAY, Disp: 30 g, Rfl: 3 valsartan-hydroCHLOROthiazide (Diovan-HCT) 80-12.5 MG tablet, TAKE 1 TABLET BY MOUTH EVERY DAY, Disp: 90 tablet, Rfl: 3 documented in this encounter Plan of Treatment Upcoming Encounters Date Type Department Care Team (Late st Contact Info) Description 09/16/2025 10:30 AM EDT Office Visit [facility] MED & PEDS [address] [place] [address] Gwen Crook MD [address] [place] [address] 12/25/2025 2:30 PM EST Clinical Support [facility] MED & PEDS [address] [place] [address] Gracie Riggs RN [address] [place], [place] [id number] documented as of this encounter Procedures Procedure Name Priority Date/Time Associated Diagnosis Comments POCT JOBY-14 URINE DRUG SCREEN Routine 08/21/2025 3:19 PM EDT Neck pain, bilateral posterior documented in this encounter Results * (ABNORMAL) POCT JOBY-14 Urine Drug Screen (08/21/2025 3:19 PM EDT) THC Negative Negative Cocaine Screen, [...] obtained by clean catch procedure / Unknown 08/21/2025 3:19 PM EDT Narrative Gracie Riggs RN - 08/21/2025 3:19 PM EDT . Internal Pass Control Lot# [id number] Exp: 09-19-26 us Gwen Crook MD POINT OF CARE TEST ENTER/EDIT ORDERABLES Final Result documented in this encounter Visit Diagnoses Diagnosis Neck pain, bilateral posterior- Primary documented in this encounter Additional Health Concerns Assessment Noted Time PHQ-9 Depression Total Score: 6 07/17/20 25 11:11 AM EDT documented as of this encounter Care Teams Splicer Helper Relationship Specialty Start Date End Date Gwen Crook MD [address] [place] [address] PCP - General Family Medicine 11/20/18 documented as of this encounter
--- OUTSIDE RECORDS SUMMARY | 2025-08-26 14:56 | XMS_ITS | Clinical Summary ---
Author Organization [employer] Address [address] [place] [address] 7 [place] [address] Care Team Providers Care Hoop Driving Machine Operator Helper Name Role Phone Gwen Crook MD Primary Care Provider Allergies Active Allergy Reactions Criticality Noted Date [...] EVERY DAY 90 tablet 2 025 Active omeprazole (PriLOSEC) [address] capsule TAKE 1 CAPSULE BY MOUTH TWICE A DAY 180 capsule 2 025 Active famotidine (Pepcid) 20 MG tablet TAKE 1 TABLET BY MOUTH TWICE A DAY 180 tablet 1 025 Active triamcinolone (Kenalog) 0.5 % ointment APPLY TO AFFECTED AREA TWICE A DAY 30 g 3 Active albuterol 108 (90 Base) MCG/ACT inhaler INHALE 2 PUFFS EVERY 6 HOURS IF NEEDED FOR WHEEZING. 18 g 1 025 Active Tirzepatide-Weig ht Management (Zepbound) 5 MG/0.5ML solutionIndicati ons:Severe obesity (CMS/HCC) (HCC),Prediabete s Inject 5 mg under the skin 1 (one) time per week. 2 mL 2 Active methocarbamol (Robaxin) 750 MG tablet TAKE ONE TABLET BY MOUTH TWICE DAILY NEEDED FOR PAIN 60 tablet 025 Active cyanocobalamin (Vitamin B-12) 1000 MCG tablet TAKE 1 TABLET BY MOUTH EVERY DAY 90 tablet 3 Active diazePAM (Valium) 2 MG tablet Take 1 tablet (2 mg) by mouth if needed at bedtime for anxiety. 30 tablet 025 2024 Active acetaminophen-co deine (Tylenol w/ Codeine #3) 300-30 MG tabletIndication s:Lumbar disc herniation with radiculopathy Take 1 tablet by mouth every 6 (six) hours if needed for severe pain. 30 tablet 025 Active naloxone (Narcan) 4 mg/0.1 mL nasal spray Administer 1 spray (4 mg) into affected nostril(s) if needed for opioid reversal. May repeat every 2-3 minutes if needed, alternating nostrils, until medical assistance becomes available. 2 each 2 025 2025 Active diazePAM (Valium) 2 MG tablet TAKE 1 TABLET (2 MG) BY MOUTH IF NEEDED AT BEDTIME FOR ANXIETY. 30 tablet 025 2024 Discontinued(R eorder (will not trigger notification to Pharmacy)) acetaminophen-co deine (Tylenol w/ Codeine #3) 300-30 MG tabletIndication s:Lumbar disc herniation with radiculopathy TAKE 1 TABLET BY MOUTH EVERY 6 HOURS NEEDED FOR SEVERE PAIN 30 tablet 025 2024 Discontinued doxycycline (Vibramycin) 100 MG capsule Take 1 capsule (100 mg) by mouth 2 times daily for 14 days. 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 2011 Severe obesity ([facility]) 11/09/2012 Allergic rhinitis 11/09/2012 Asthma 11/09/2012 Osteoarthritis of knee 11/09/2012 Encounters Date Type Department Care Team Description 08/21/2025 2:30 PM EDT Clinical Support [facility] [address] [place] [address] Gracie Riggs, TARAS Neck pain, bilateral posterior (Primary Dx) 08/21/2025 Refill [facility] [address] [place] [address] Gwen Crook MD 08/21/2025 Refill [facility] [address] [place], [place] [phone] Gracie Riggs RN Lumbar disc herniation with radiculopathy 08/21/2025 Travel 08/14/2025 Travel 08/07/2025 Refill [facility] [address] [place], [place] [phone] Gwen Crook MD Lumbar disc herniation with radiculopathy 08/06/2025 Refill [facility] [address] [place], [place] [phone] Gwen Crook MD 07/17/2025 11:00 AM EDT Office Visit [facility] [address] [place] [address] Gwen Crook MD Dysuria (Primary Dx); Primary hypertension; Severe obesity (CMS/HCC); Primary osteoarthritis of both knees 07/17/2025 Travel 07/15/2025 Refill [facility] [address] [place] [address] Gwen Crook MD Lumbar disc herniation with radiculopathy 07/15/2025 Refill [facility] [address] [place] [address] Cate Shah MD 07/15/2025 Refill [facility] [address] [place] [address] Gwen Crook MD 07/14/2025 Telephone [facility] [address] [place] [phone] Gwen Crook MD Nurse Triage 07/11/2025 Refill [facility] [address] [place] [address] Gwen Crook MD 06/25/2025 Orders Only [facility] [address] [place] [address] Gwen Crook MD Severe obesity (CMS/HCC) (Primary Dx); Prediabetes 06/25/2025 Refill [facility] [address] [place] [address] Gwen Crook MD Prediabetes; Class 3 severe obesity due to excess calories with serious comorbidity and body mass index (BMI) of 40.0 to 44.9 in adult 06/23/2025 Refill [facility] [address] [place] [address] Gwen Crook MD Lumbar disc herniation with radiculopathy 06/11/2025 Refill [facility] [address] [place] [address] Gwen Crook MD 06/02/2025 Refill [facility] [address] [place] [address] Gwen Crook MD Lumbar disc herniation with radiculopathy 06/02/2025 Refill [facility] [address] [place], [place] [phone] Gwen Crook MD Lumbar disc herniation with radiculopathy 06/02/2025 Refill [facility] [address] [place] [address] Gwen Crook MD Lumbar disc herniation with radiculopathy from Last 3 Months Immunizations Immunization Administration [...] Description 09/16/2025 10:30 AM EDT Office Visit [facility] [address] [place] [address] Gwen Crook MD [address] [place] [address] 12/25/2025 2:30 PM EST Clinical Support [facility] [address] [place] [address] Gracie Riggs RN [address] [place] [address] Health Maintenance Due Date Last Done Comments CT Colonography 1969 Colonoscopy 1969 FIT 1969 HIV Screening 1969 Sigmoidoscopy 1969 Hepatitis C Screening 1987 Hepatitis B Vaccines (1 of 3 - 19+ 3-dose series) 1988 Pneumococcal Vaccine: 50+ Years (1 of 2 - PCV) 1988 Mammogram 2009 Zoster Vaccines (1 of 2) 2019 FOBT 03/26/2025 03/26/2024 COVID-19 Vaccine ( - season) 2025 Influenza Vaccine (#1) 2025 , 11/18/2016, 08/20/2014, Additional history exists SDOH Screening 01/01/2026 01/01/2025 Alcohol/Substance Use Screening 01/16/2026 01/16/2025 Diabetes: Hemoglobin A1C 01/16/20262 025, 03/20/2024, 09/21/2022, Additional history exists Tobacco [...] 3:19 PM EDT Neck pain, bilateral posterior POCT URINALYSIS DIPSTICK Routine 07/17/2025 11:47 AM EDT Dysuria CULTURE, URINE, ROUTINE Routine 07/17/2025 11:40 AM EDT Dysuria HEMOGLOBIN A1C Routine 01/16/2025 1:55 PM EST [...] to Health Maintenance Results * (ABNORMAL) POCT JOBY-14 Urine Drug [...] PM EDT . Internal Pass Control Lot# [id number] Exp: 09-19-26 Gwen Crook MD POINT OF CARE TEST ENTER/EDIT ORDERABLES Final Result * (ABNORMAL) POCT Urinalysis (07/17/2025 11:47 AM [...] Date Urine 07/17/2025 11:4 7 AM EDT us Gwen Crook MD POINT OF CARE TEST ENTER/EDIT ORDERABLES Final Result * Culture, Urine, Routine (07/17/2025 11:40 AM EDT) Urine Urine specimen obtained by clean catch procedure / Unknown 07/17/2025 11:40 AM EDT 07/17/2025 2:27 PM EDT Comment:UACC Narrative [facility] - 07/19/2025 7:28 AM EDT Escherichia coli Quant > 100,000 cfu/mL Escherichia coli: Ampicillin >=32(R) Escherichia coli: Cefazolin (Urine) 4(S) Escherichia coli: Cefepime <=0.12(S) Escherichia coli: Ceftriaxone <=0.25(S) Escherichia coli: Ciprofloxacin <=0.06(S) Escherichia coli: Gentamicin <=1(S) Escherichia coli: Nitrofurantoin <=16(S) Escherichia coli: Trimethoprim/Sulfamethoxazole <=20(S) Specimen Source: Urine clean catch Gwen Crook MD LAB MICROBIOLOGY - GENERAL OR DERABLES Final Result Performing Organization Address [facility] de Phone Number [facility] [address] [place] [phone] * Hemoglobin A1c (01/16/2025 1:55 PM EST) Hemoglobin A1c 5.6 <6.0 % [facility] Comment:Hemoglobin A1C Refer ence Range Adults: 4.8 - 6.0 % Non diabetic: < 6.0 % Goal: < 7.0 %Additional Action Suggested: > 8.0 %Note: Hemoglobin A1c results are invalid for patients with abnormal amounts of HbF. Blood transfusions may impact the HbA1c concentration in the patient sample. Estimated Average Glucose 114 mg/dL [facility] Comment:eAG = Estimated ave rage glucose which is %A1C expressed asaverage glucose, using the formula of the O3S-QaztzrcHulpelx Glucose study (ADAG), Diabetes Care, Vol.31,#8,Jun. 2007 Blood Venous blood specimen / Unknown 01/16/2025 1:55 PM EST 01/16/2025 6:11 PM EST Gwen Crook MD LAB BLOOD ORDERABLES Final Re sult [facility] [address] [place] [address] [phone] * Pap Smear (07/30/2024 2:17 PM EDT) SOURCE: SEE NOTE [facility] Comment:None given Report Status: [facility] Clinical Information: SEE NOTE [facility] Comment:None given LMP: SEE NOTE [facility] Comment:NONE GIVEN Prev. PAP: SEE NOTE [facility] Comment:NONE GIVEN Prev. BX: SEE NOTE [facility] Comment:NONE GIVEN Statement Of Adequacy: SEE NOTE [facility] Comment:Satisfactory for carmen luation.Endocervical/transformation zone component absent. General Categorization: [facility] Interpretation/Result: SEE NOTE [facility] Comment:Cytology Results: Ne gative for intraepitheliallesion or malignancy. Cytology Comment SEE NOTE [facility] Comment:This Pap test has be en evaluated with computerassisted technology. Resolute Professional: SEE NOTE [facility] Comment:RPR, CT (ASCP) CT sc reening location: [address] [address] Review Resolute Professional: [facility] Pathologist [facility] PAP Infection [facility] See Note SEE NOTE [facility] Comment:EXPLANATORY NOTE:The Pap is a screening test for cervical cancer. It isnot a diagnostic test and is subject to false negativeand false positive results. It is most reliable when asatisfactory sample, regularly obtained, is submittedwith relevant clinical findings and history, and whenthe Pap result is evaluated along with historic andcurrent clinical information.THIS TEST WAS PERFORMED AT:[employer] [address] [phone] SEVILLA MD Pap Vial Vaginal structure / Unknown 07/30/2024 2:17 PM EDT 07/30/2024 5:40 PM EDT Narrative [facility] - 08/05/2024 1:08 PM EDT SEE SCANNED RESULTS IN EMR Gwen Crook MD LAB PATHOLOGY ORDERABLES Maribell yarbrough Result [facility] [address] [place] [phone] [phone] * Cologuard?? colon cancer screening (03/26/2024 3:45 PM EDT) Cologuard Result Negative Negative 04/02/20 10:19 AM EDT [employer] (CLIA #:[id number]) Comment: NEGATIVE TEST RESULT. A negative Cologuard [...] screened with both Cologuard and colonoscopy. (Cristina T. et al, N Engl J Med 2014;370(14):7336-6081) The normal value (reference range) for this assay is negative. COLOGUARD RE-SCREENING RECOMMENDATION: Periodic colorectal cancer screening is an important part of preventive healthcare for asymptomatic individuals at average risk for colorectal cancer. Following a negative Cologuard result, the [place] Cancer Society and U.S. Multi-Society Task Force screening guidelines recommend a Cologuard re-screening interval of 3 years. References: [place] Cancer Society Guideline for Colorectal Cancer Screening: https://www.cancer.org/cancer/fickq-ipiazd-wbbepc/bztifdncy-xyhcfxcrq-ajucveu/ac s-rec ommendations.html.; Janes SANCHEZ, Abrahan TORRES, Humberto BakerK, Colorectal Cancer Screening: Recommendations for Physicians and Patients from the U.S. Multi-Society Task Force on Colorectal Cancer Screening , Am J Gastroenterology 2017; 112:6537-3317. TEST DESCRIPTION: Composite algorithmic analysis of stool [...] Wagner et al, N Engl J Med 2014;370(14):2814-1499.) Cologuard may produce a false negative or false positive result (no colorectal cancer or precancerous polyp present at colonoscopy follow up). A negative Cologuard test result does not guarantee the absence of CRC or advanced adenoma (pre-cancer). The current Cologuard screening interval is every 3 years. ([place] Cancer Society and U.S. Multi-Society Task Force). Cologuard performance data in a 10,000 patient pivotal study using colonoscopy as the reference method can be accessed at the following location: www.[employer]/results. Additional description of the Cologuard test process, warnings and precautions can be found at www.[employer]. Stool specimen (specimen) 03/26/2024 3:45 PM EDT 03/27/2024 11:04 AM EDT us Gwen Crook MD LAB MOLECULAR DIAGNOSTICS ORD ERABLES Final Result [employer] (CLIA #:[id number]) [address] [place] [address], * (ABNORMAL) Lipid Panel, Standard (03/20/2024 9:34 AM EDT) Triglycerides 84 <150 mg/dL [facility] Comment:Desirable Triglyceri de: less than 150 mg/dLBorderline High Triglyceride 150-199 mg/dLHigh Triglyceride: 200-499 mg/dLVery High Triglyceride: greater than or equal to 5OO mg/dL Cholesterol 183 <200 mg/dL [facility] Comment:Desirable Cholestero l: less than 200 mg/dLBorderline High Cholesterol: 200-239 mg/dLHigh Cholesterol: greater than 239 mg/dL LDL Cholesterol Calculated 105(H) <100 mg/dL [facility] Comment:Desirable LDL: less than 100 mg/dLNear Optimal/Above Optimal LDL: 110- 129 mg/dLBorderline High LDL: 130-159 mg/dLHigh LDL: 160-189 mg/dLVery High LDL: greater than or equal to 190 mg/dL HDL Cholesterol 62 >40 mg/dL [facility] Comment:Desirable HDL: great er than 40 mg/dL Note: This HDL assay may give artificially low results in patients with liver disease. Blood Venous blood specimen / Unknown 03/20/2024 9:34 AM EDT 03/20/2024 2:28 PM EDT us Gwen Crook MD LAB BLOOD ORDERABLES Final Re sult [facility] [address] [place] [phone] from Last 3 Months or Most Recently Relevant to Health Maintenance Insurance [facility] CARE < [address] [place] [id number] Care Teams Hoop Driving Machine Operator Helper Relationship Specialty Start Date End Date Gwen Crook MD [address] [place] [address] PCP - General Family Medicine 11/20/18
--- OUTSIDE RECORDS SUMMARY | 2025-08-26 14:56 | XMS_ITS | Encounter Summary ---
Author Organization [email or web address] Address [address] [place] [address] [place] [address] Care Team Providers Care Assistant Printer Floor Covering Name Role Phone Gwen Crook MD Primary Care Provider [phone] Reason for Visit * Reason Comments Med Refill Encounter Details Date Type Department Care Team ([facility] Contact Info) Description 08/18/2023 Refill [facility] [address] [place], [place] [phone] Gwen Crook MD [address] [place] [address] Social History Tobacco Use Types Packs/Day Years [...] Upcoming Encounters Date Type Department Care Team ([facility] Contact Info) Description 09/16/2025 10:30 AM EDT Office Visit [facility] [address] [place] [address] Gwen Crook MD [address] [place] [address] 12/25/2025 2:30 PM EST Clinical Support [facility] [address] [place] [address] Gracie Riggs, TARAS [address] [place] [address] documented as of this encounter Visit Diagnoses Not on filedocumented in this encounter Additional Health Concerns Assessment Noted Time PHQ-9 Depression Total Score: 4 01/20/20 23 11:58 AM EST documented as of this encounter Care Teams Assistant Printer Floor Covering Relationship Specialty Start Date End Date Gwen Crook MD [address] [place] [address] PCP - General Family Medicine 11/20/18 documented as of this encounter
--- OUTSIDE RECORDS SUMMARY | 2025-08-26 14:56 | XMS_ITS | Encounter Summary ---
Author Organization [employer] Address [address] [place] [address] [place] [address] Care Team Providers Care Oil Treater Name Role Phone Gwen Crook MD Primary Care Provider [phone] Reason for Visit * Reason Comments Med Refill Encounter Details Date Type Department Care Team (Late Contact Info) Description 02/20/2023 Refill [facility] P[facility] [address] [place], [place] [phone] Gwen Crook MD [address] [place] [address] Bilateral primary osteoarthritis of knee Social History [...] Department Care Team (Late Contact Info) Description 09/16/2025 10:30 AM EDT Office Visit [facility] [address] [place], [place] [phone] Gwen Crook MD [address] [place], [place] [phone] 12/25/2025 2:30 PM EST Clinical Support [facility] [address] [place] [address] Gracie Riggs, TARAS [address] [place] [address] documented as of this encounter Visit Diagnoses Diagnosis Bilateral primary osteoarthritis of knee documented in this encounter Additional Health Concerns Assessment Noted Time PHQ-9 Depression Total Score: 4 01/20/20 23 11:58 AM EST documented as of this encounter Care Teams Oil Treater Relationship Specialty Start Date End Date Gwen Crook MD [address] [place] [address] PCP - General Family Medicine 11/20/18 documented as of this encounter
--- OUTSIDE RECORDS SUMMARY | 2025-08-26 14:56 | XMS_ITS | Encounter Summary ---
Author Organization [employer] Address [address] [place] [address] [place] [address] Care Team Providers Care Manager Concrete Name Role Phone Gwen Crook MD Primary Care Provider Reason for Visit * Reason Onset Date Comments Appointment Request 11/28/2022 Encounter Details Date Type Department Care Team (Late Contact Info) Description 11/28/2022 Telephone [facility] MEDICINE [address] [place] [address] Gwen Crook MD [address] [place] [address] Appointment Request Social History Tobacco Use Types [...] requesting to r/s appt 11/29/22 at 2:30 (CABLE TOOL DRILLER Initial [place]) Please contact pt at [phone] documented in this encounter Plan of Treatment Upcoming Encounters Date Type Department Care Team (Late Contact Info) Description 09/16/2025 10:30 AM EDT Office Visit [facility] & PEDS [address] [place] [address] Gwen Crook MD [address] [place] [address] 12/25/2025 2:30 PM EST Clinical Support [facility] [address] [place] [address] Gracie Riggs, TARAS [address] [place] [address] documented as of this encounter Visit Diagnoses Not on filedocumented in this encounter Care Teams Manager Concrete Relationship Specialty Start Date End Date Gwen Crook MD [address] [place] [address] PCP - General Family Medicine 11/20/18 documented as of this encounter
--- OUTSIDE RECORDS SUMMARY | 2025-08-26 14:56 | XMS_ITS | Encounter Summary ---
Author Organization [employer] Address [address] [place] [address] 7t [place] [address] Care Team Providers Care Software Configuration Engineer Name Role Phone Gwen Crook MD Primary Care Provider [phone] Encounter Details Date Type Department Care Team (Latest Contact Info) Description 08/21/2025 Travel Social History Tobacco Use Types Packs/Day [...] [facility] [address] [place] [address] Gwen Crook MD [address] [place] [address] 12/25/2025 2:30 PM EST Clinical Support [facility] [address] [place] [address] Gracie Riggs, TARAS [address] [place] [address] documented as of this encounter Visit Diagnoses Not on filedocumented in this encounter Additional Health Concerns Assessment Noted Time PHQ-9 Depression Total Score: 6 07/17/20 25 11:11 AM EDT documented as of this encounter Care Teams Software Configuration Engineer Relationship Specialty Start Date End Date Gwen Crook MD [address] [place] [address] PCP - General Family Medicine 11/20/18 documented as of this encounter
--- OUTSIDE RECORDS SUMMARY | 2025-08-26 14:56 | XMS_ITS | Encounter Summary ---
Author Organization [employer] Address [address] [place] [address] [place] [address] Care Team Providers Care Raw Stock Machine Feeder Name Role Phone Gwen Crook MD Primary Care Provider [phone] Reason for Visit * Reason Comments Med Refill Encounter Details Date Type Department Care Team ([facility] Contact Info) Description 12/16/2022 Refill [facility] [address] [place], [place] [phone] Paige Juares MD [address] [place] [address] Social History Tobacco Use Types Packs/Day Years [...] Description 09/16/2025 10:30 AM EDT Office Visit [facility]S [address] [place] [address] Gwen Crook MD [address] [place], [place] [phone] 12/25/2025 2:30 PM EST Clinical Support [facility] [address] [place] [address] Gracie Riggs RN [address] [place] [address] documented as of this encounter Visit Diagnoses Not on filedocumented in this encounter Care Teams Raw Stock Machine Feeder Relationship Specialty Start Date End Date Gwen Crook MD [address] [facility] [place] [address] PCP - General Family Medicine 11/20/18 documented as of this encounter
--- OUTSIDE RECORDS SUMMARY | 2025-08-26 14:56 | XMS_ITS | Encounter Summary ---
Author Organization [employer] Address [address] [place] [address] [place] [address] Care Team Providers Care Aluminum Siding Mechanic Name Role Phone Gwen Crook MD Primary Care Provider [phone] Reason for Visit * Reason Onset Date Comments triage 02/17/2023 Encounter Details Date Type Department Care Team ([facility] Contact Info) Description 02/17/2023 Telephone [facility] MED [facility] PEDS [address] [place], [place] [phone] Gwen Crook MD [address] [place] [address] triage Social History Tobacco Use Types Packs/Day [...] No answer LVM to return call to [facility] triage line. Protocol Used: No Contact or [...] Upcoming Encounters Date Type Department Care Team ([facility] Contact Info) Description 09/16/2025 10:30 AM EDT Office Visit [facility] [address] [place] [address] Gwen Crook MD [address] [place] [address] 12/25/2025 2:30 PM EST Clinical Support [facility] [address] [place] [address] Gracie Riggs RN [address] [place] [address] documented as of this encounter Visit Diagnoses Not on filedocumented in this encounter Additional Health Concerns Assessment Noted Time PHQ-9 Depression Total Score: 4 01/20/20 23 11:58 AM EST documented as of this encounter Care Teams Aluminum Siding Mechanic Relationship Specialty Start Date End Date Gwen Crook MD [address] [place] [address] PCP - General Family Medicine 11/20/18 documented as of this encounter
--- OUTSIDE RECORDS SUMMARY | 2025-08-26 14:56 | XMS_ITS | Encounter Summary ---
Author Organization [employer] Address [address] [place] [address] [place] [address] Care Team Providers Care Sheep Killer Name Role Phone Gwen Crook MD Primary Care Provider [phone] Reason for Visit * Reason Onset Date Comments Med Refill 10/14/2024 Encounter Details Date Type Department Care Team ([facility] st Contact Info) Description 10/14/2024 Refill [facility] MED & PEDS [address] [place], [place] [phone] Gwen Crook MD 505 [place] [address] Lumbar disc herniation with radiculopathy Social History [...] 30 MG tablet To be sent to: [facility] - [address] documented in this encounter Plan of Treatment Upcoming Encounters Date Type Department Care Team ([facility] st Contact Info) Description 09/16/2025 10:30 AM EDT Office Visit [facility] MED & PEDS [address] [place] [address] Gwen Crook MD 505 [place] [address] 12/25/2025 2:30 PM EST Clinical Support [facility] MED & PEDS [address] [place] [address] Gracie Riggs RN 505 [place] [address] documented as of this encounter Visit Diagnoses Diagnosis Lumbar disc herniation with radiculopathy Displacement of lumbar intervertebral disc without myelopathy documented in this encounter Additional Health Concerns Assessment Noted Time PHQ-9 Depression Total Score: 4 01/20/20 23 11:58 AM EST documented as of this encounter Care Teams Sheep Killer Relationship Specialty Start Date End Date Gwen Crook MD [address] [place] [address] PCP - General Family Medicine 11/20/18 documented as of this encounter
--- OUTSIDE RECORDS SUMMARY | 2025-08-26 14:56 | XMS_ITS | Encounter Summary ---
Author Organization [employer] Address [address] [place] [address] [place] [address] Care Team Providers Care Nutrition Services Associate Name Role Phone Gwen Crook MD Primary Care Provider [phone] Reason for Visit * Reason Comments Med Refill Encounter Details Date Type Department Care Team ([facility] st Contact Info) Description 08/06/2025 Refill [facility] MED & PEDS [address] [place], [place] [phone] Gwen Crook MD [address] [place] [address] Social History Tobacco Use Types Packs/Day Years [...] Upcoming Encounters Date Type Department Care Team ([facility] st Contact Info) Description 09/16/2025 10:30 AM EDT Office Visit [facility] MED & PEDS [address] [place] [address] Gwen Crook MD [address] [place] [address] 12/25/2025 2:30 PM EST Clinical Support [facility] MED & PEDS [address] [place] [address] Gracie Riggs RN 505 [place] [address] documented as of this encounter Visit Diagnoses Not on filedocumented in this encounter Additional Health Concerns Assessment Noted Time PHQ-9 Depression Total Score: 6 07/17/20 25 11:11 AM EDT documented as of this encounter Care Teams Nutrition Services Associate Relationship Specialty Start Date End Date Gwen Crook MD 505 [place] [address] PCP - General Family Medicine 11/20/18 documented as of this encounter
--- OUTSIDE RECORDS SUMMARY | 2025-08-26 14:56 | XMS_ITS | Encounter Summary ---
Author Organization [employer] Address [address] [place] [address] [place] [address] Care Team Providers Care Apiculturist Name Role Phone Gwen Crook MD Primary Care Provider [phone] Reason for Visit * Reason Comments Med Refill Encounter Details Date Type Department Care Team ([facility] st Contact Info) Description 08/21/2025 Refill [facility] CH[facility] MED & PEDS [address] [place], [place] [phone] Gwen Crook MD 505 [place] [address] Social History Tobacco Use Types Packs/Day Years [...] Upcoming Encounters Date Type Department Care Team ([facility] st Contact Info) Description 09/16/2025 10:30 AM EDT Office Visit [facility] MED & PEDS [address] [place] [address] Gwen Crook MD [address] [place] [address] 12/25/2025 2:30 PM EST Clinical Support [facility] MED & PEDS [address] [place] [address] Gracie Riggs RN [address] [place] [address] documented as of this encounter Visit Diagnoses Not on filedocumented in this encounter Additional Health Concerns Assessment Noted Time PHQ-9 Depression Total Score: 6 07/17/20 25 11:11 AM EDT documented as of this encounter Care Teams Apiculturist Relationship Specialty Start Date End Date Gwen Crook MD 505 [place] [address] PCP - General Family Medicine 11/20/18 documented as of this encounter
--- OUTSIDE RECORDS SUMMARY | 2025-08-26 14:56 | XMS_ITS | Encounter Summary ---
Author Organization [employer] Address [address] [place] [address] 7 [place] [address] Care Team Providers Care Adjudication Specialist Name Role Phone Gwen Crook MD Primary Care Provider Reason for Visit * Reason Comments Med Refill Encounter Details Date Type Department Care Team ([facility] st Contact Info) Description 06/02/2025 Refill [facility] CH[facility] MED & PEDS [address] [place], [place] [phone] Gwen Crook MD [address] [place] [address] Lumbar disc herniation with radiculopathy Social History [...] the past 12 months, has t he [employer], gas, oil or water company threatened to [...] Description 09/16/2025 10:30 AM EDT Office Visit [facility] MED & PEDS [address] [place] [address] Gwen Crook MD [address] [place] [address] 12/25/2025 2:30 PM EST Clinical Support [facility] MED & PEDS [address] [place] [address] Gracie Riggs, RN 505 [place] [address] documented as of this encounter Visit Diagnoses Diagnosis Lumbar disc herniation with radiculopathy Displacement of lumbar intervertebral disc without myelopathy documented in this encounter Additional Health Concerns Assessment Noted Time PHQ-9 Depression Total Score: 4 01/20/20 23 11:58 AM EST documented as of this encounter Care Teams Adjudication Specialist Relationship Specialty Start Date End Date Gwen Crook MD [address] [place] [address] PCP - General Family Medicine 11/20/18 documented as of this encounter
--- OUTSIDE RECORDS SUMMARY | 2025-08-26 14:56 | XMS_ITS | Encounter Summary ---
Author Organization [employer] Address [address] [place] [address] 7 [place] [address] Care Team Providers Care Resident Physician In Radiology Name Role Phone Gwen Crook MD Primary Care Provider [phone] Reason for Visit * Reason Comments Med Refill Encounter Details Date Type Department Care Team ([facility] st Contact Info) Description 03/01/2024 Refill [facility] CH[facility] MED & PEDS [address] [place], [place] [phone] Gwen Crook MD [address] [place] [address] Social History Tobacco Use Types Packs/Day Years [...] Description 09/16/2025 10:30 AM EDT Office Visit [facility] MED & PEDS [address] [place] [address] Gwen Crook MD 505 [place] [address] 12/25/2025 2:30 PM EST Clinical Support [facility] MED & PEDS [address] [place] [address] Gracie Riggs, TARAS 505 [place] [address] documented as of this encounter Visit Diagnoses Not on filedocumented in this encounter Additional Health Concerns Assessment Noted Time PHQ-9 Depression Total Score: 4 01/20/20 23 11:58 AM EST documented as of this encounter Care Teams Resident Physician In Radiology Relationship Specialty Start Date End Date Gwen Crook MD [address] [place] [address] PCP - General Family Medicine 11/20/18 documented as of this encounter
--- OUTSIDE RECORDS SUMMARY | 2025-08-26 14:56 | XMS_ITS | Encounter Summary ---
Author Organization [employer] Address [address] [place] [address] 7 [place] [address] Care Team Providers Care Yoke Presser Name Role Phone Gwen Crook MD Primary Care Provider [phone] Reason for Visit * Reason Onset Date Comments Med Refill 08/21/2025 Encounter Details Date Type Department Care Team ([facility] st Contact Info) Description 08/21/2025 Refill [facility] CHC MED & PEDS [address] [place] [address] Gracie Riggs, RN [address] [place] [address] Lumbar disc herniation with radiculopathy Social History [...] Upcoming Encounters Date Type Department Care Team ([facility] st Contact Info) Description 09/16/2025 10:30 AM EDT Office Visit [facility] MED & PEDS [address] [place] [address] Gwen Crook MD [address] [place] [address] 12/25/2025 2:30 PM EST Clinical Support [facility] MED & PEDS [address] [place] [address] Gracie Riggs, TARAS 505 [place] [address] documented as of this encounter Visit Diagnoses Diagnosis Lumbar disc herniation with radiculopathy Displacement of lumbar intervertebral disc without myelopathy documented in this encounter Additional Health Concerns Assessment Noted Time PHQ-9 Depression Total Score: 6 07/17/20 25 11:11 AM EDT documented as of this encounter Care Teams Yoke Presser Relationship Specialty Start Date End Date Gwen Crook MD [address] [place] [address] PCP - General Family Medicine 11/20/18 documented as of this encounter
--- OUTSIDE RECORDS SUMMARY | 2025-08-26 14:56 | XMS_ITS | Encounter Summary ---
Author Organization [employer] Address [address] [place] [address] [place] [address] Care Team Providers Care Hogshead Mat Inspector Name Role Phone Gwen Crook MD Primary Care Provider [phone] Reason for Visit * Reason Comments Med Change Request Encounter Details Date Type Department Care Team ([facility] st Contact Info) Description 03/19/2025 Refill [facility] MED [facility] PEDS [address] [place], [place] [phone] Gwen Crook MD 505 [place] [address] Social History Tobacco Use Types Packs/Day Years [...] Description 09/16/2025 10:30 AM EDT Office Visit [facility] MED & PEDS [address] [place] [address] Gwen Crook MD 505 [place] [address] 12/25/2025 2:30 PM EST Clinical Support [facility] MED & PEDS 505 [place] [address] Gracie Riggs, TARAS 505 [place] [address] documented as of this encounter Visit Diagnoses Not on filedocumented in this encounter Additional Health Concerns Assessment Noted Time PHQ-9 Depression Total Score: 4 01/20/20 23 11:58 AM EST documented as of this encounter Care Teams Hogshead Mat Inspector Relationship Specialty Start Date End Date Gwen Crook MD 505 [place] [address] PCP - General Family Medicine 11/20/18 documented as of this encounter
--- OUTSIDE RECORDS SUMMARY | 2025-08-26 14:56 | XMS_ITS | Encounter Summary ---
Author Organization [employer] Address [address] [place] [address] 7 [place] [address] Care Team Providers Care Railroad Detective Name Role Phone Gwen Crook MD Primary Care Provider [phone] Reason for Visit * Reason Comments Med Refill Encounter Details Date Type Department Care Team ([facility] st Contact Info) Description 02/11/2024 Refill [facility] MED & PEDS [address] [place], [place] [phone] Petros Norris MD 505 [place] [address] Social History Tobacco Use Types Packs/Day Years [...] 09/16/2025 10:30 AM EDT Office Visit [facility] MED & PEDS 505 [place] [address] Gwen Crook MD [address] [place] [address] 12/25/2025 2:30 PM EST Clinical Support [facility] MED & PEDS [address] [place] [address] Gracie Riggs, TARAS 505 [place] [address] documented as of this encounter Visit Diagnoses Not on filedocumented in this encounter Additional Health Concerns Assessment Noted Time PHQ-9 Depression Total Score: 4 01/20/20 23 11:58 AM EST documented as of this encounter Care Teams Railroad Detective Relationship Specialty Start Date End Date wGen Crook MD [address] [place] [address] PCP - General Family Medicine 11/20/18 documented as of this encounter
--- OUTSIDE RECORDS SUMMARY | 2025-08-26 14:56 | XMS_ITS | Clinical Summary ---
Author Organization [facility] Address [address] [place] [address] Care Team Providers Care Environmental Studies Professor Name Role Phone Unavailable Primary Care Provider [...] Last Done Comments Breast Cancer Screening 1969 Colorectal Cancer Screening: Colonoscopy 1969 DTaP,Tdap,and Td Vaccines (1 - Tdap) 1988 Hepatitis B Vaccines (1 of 3 - 19+ 3-dose series) 1988 Cervical Cancer Screening: P ap Smear 1990 Pneumococcal Vaccine: 50+ Ye ars (1 of 1 - PCV) 2019 Zoster Vaccines (1 of 2) 2019 HIV Screening 10/23/2022 Hepatitis C Screening 10/23/2022 Social Influencers of Health Screening 10/23/2022 Depression Screening 11/20/2024 COVID-19 Vaccine (1 - 2023-2 5 season) 2025 Influenza Vaccine (#1) 2025 RSV Immunization Adult Patie nts (1 - 1-dose 75+ series) 2044 HIB [...]
--- OUTSIDE RECORDS SUMMARY | 2025-08-26 14:56 | XMS_ITS | Encounter Summary ---
Author Organization [employer] Address [address] [facility] [address] [place] [address] Care Team Providers Care De Alcoholizer Name Role Phone Gwen Crook MD Primary Care Provider [phone] Encounter Details Date Type Department Care Team ([facility] st Contact Info) Description 12/02/2024 Orders Only [facility] CH[facility] MED & PEDS [address] [place] [address] Provider, MD Owen Social History Tobacco Use [...] [facility] MED & PEDS [address] [place] [address] Gwen Crook MD [address] [place] [address] 12/25/2025 2:30 PM EST Clinical Support [facility] MED & PEDS [address] [place], [place] [phone] Gracie Riggs RN [address] [place], [place] [phone] documented as of this encounter Procedures Procedure [...] documented as of this encounter Care Teams De Alcoholizer Relationship Specialty Start Date End Date Gwen Crook MD [address] [place] [address] PCP - General Family Medicine 11/20/18 documented as of this encounter
--- OUTSIDE RECORDS SUMMARY | 2025-08-26 14:56 | XMS_ITS | Encounter Summary ---
Author Organization [employer] Address [address] [place] [address] [place] [address] Care Team Providers Care Massage Therapist Name Role Phone Gwen Crook MD Primary Care Provider [phone] Reason for Visit * Reason Onset Date Comments Nurse Triage 01/24/2024 Encounter Details Date Type Department Care Team ([facility] st Contact Info) Description 01/24/2024 Telephone [facility] CHC MED & PEDS [address] [place], [place] [phone] Gwen Crook MD [address] [place] [address] Nurse Triage Social History Tobacco Use Types [...] the past 12 months, has t he [employer], [employer], [employer] threatened to shut off services in your [...] 01/24/2024 1:15 PM EST Triage call with [place] [employer] Time Analyst ID [id number] Pt reports uses a walker for walking [...] referral and tramadol refill to PCP and [facility] nursing team for follow up. Pt [...] 10:30 AM EDT Office Visit [facility] MED & PEDS [address] [place] [address] Gwen Crook MD [address] [place] [address] 12/25/2025 2:30 PM EST Clinical Support [facility] MED & PEDS [address] [place] [address] Gracie Riggs, TARAS [address] [place] [address] documented as of this encounter Visit Diagnoses Not on filedocumented in this encounter Additional Health Concerns Assessment Noted Time PHQ-9 Depression Total Score: 4 01/20/20 23 11:58 AM EST documented as of this encounter Care Teams Massage Therapist Relationship Specialty Start Date End Date Gwen Crook MD [address] [place] [address] PCP - General Family Medicine 11/20/18 documented as of this encounter
--- OUTSIDE RECORDS SUMMARY | 2025-08-26 14:56 | XMS_ITS | Encounter Summary ---
Author Organization [employer] Address [address] [place] [address] Care Team Providers Care Staffing Coordinator Name Role Phone Gwen Crook MD Primary Care Provider [phone] Reason for Visit * Reason Onset Date Comments Nurse Triage 11/28/2023 Encounter Details Date Type Department Care Team ([facility] st Contact Info) Description 11/28/[address] [facility] [address] [place] [address] Gwen Crook MD [address] [place] [address] Nurse Triage Social History Tobacco Use Types [...] No answer LVM to return call to [facility] triage line [phone]. * Telephone Encounter - Cisco Murphy - 11/28/2023 2:26 PM EST Symptoms: Headache, Dizziness Outcome: Schedule an urgent appointment (within 4 hours) or talk to a nurse or provider soon Reason: Getting worse The caller accepted this outcome documented in this encounter Plan of Treatment Upcoming Encounters Date Type Department Care Team (Late st Contact Info) Description 09/16/2025 10:30 AM EDT Office Visit [facility] MED & PEDS [address] [place] [address] Gwen Crook MD [address] [place] [address] 12/25/2025 2:30 PM EST Clinical Support [facility] MED & PEDS [address] [place] [address] Gracie Riggs RN [address] [place] [address] documented as of this encounter Visit Diagnoses Not on filedocumented in this encounter Additional Health Concerns Assessment Noted Time PHQ-9 Depression Total Score: 4 01/20/20 23 11:58 AM EST documented as of this encounter Care Teams Staffing Coordinator Relationship Specialty Start Date End Date Gwen Crook MD [address] [place] [address] PCP - General Family Medicine 11/20/18 documented as of this encounter
--- OUTSIDE RECORDS SUMMARY | 2025-08-26 14:56 | XMS_ITS | Encounter Summary ---
Author Organization [email or web address] Address [address] [place] [address] 7 [place] [address] Care Team Providers Care Client Relationship Consultant Name Role Phone Gwen Crook MD Primary Care Provider [phone] Reason for Visit * Reason Comments Med Refill Encounter Details Date Type Department Care Team ([facility] st Contact Info) Description 12/19/2024 Refill [facility] MED & PEDS [address] [place], [place] [phone] Gwen Crook MD [address] [place] [address] Social History Tobacco Use Types Packs/Day Years [...] [facility] [address] [place] [address] Gwen Crook MD [address] [place] [address] 12/25/2025 2:30 PM EST Clinical Support [facility] MED & PEDS [address] [place] [address] Gracie Riggs, TARAS [address] [place] [address] documented as of this encounter Visit Diagnoses Not on filedocumented in this encounter Additional Health Concerns Assessment Noted Time PHQ-9 Depression Total Score: 4 01/20/20 23 11:58 AM EST documented as of this encounter Care Teams Client Relationship Consultant Relationship Specialty Start Date End Date Gwen Crook MD [address] [place] [address] PCP - General Family Medicine 11/20/18 documented as of this encounter
== END 2025-08-26 11:53 | disposition home or self-care (01) ==
LOC: HO.MAMMO 11:52
PROVIDERS: PCP Pediatrics; Visit Provider Pediatrics
DX: Z12.31 Encounter for screening mammogram for malignant neoplasm of breast (principal)
CPT/HCPCS: 77063; 77067

== ENCOUNTER 2025-09-16 11:52 | Outpatient (REF) | payer OTHER, SELFPAY ==
--- OUTSIDE RECORDS SUMMARY | 2025-09-16 10:30 | XMS_ITS | Encounter Summary ---
Author Organization [employer] Address [address] [place] [address] [place] [address] Care Team Providers Care Manager Visual Name Role Phone Gwen Crook MD Primary Care Provider [phone] Reason for Referral * Medications - Closed Specialty Diagnoses / Procedures Referred By Jake cardenas Referred To Contact Diagnoses Neuropathic pain Gwen Crook MD [address] [place] [address] Phone: tel: fax: Referral ID Status Reason Start Date Expiration Date Visits Re quested Visits Authorized [id number] Closed 1 1 Encounter Details Date Type Department Care Team ([facility] st Contact Info) Description 09/16/2025 10:30 AM EDT Office Visit [facility] MED & PEDS [address] [place] [address] Gwen Crook MD [address] [place], [place] [phone] Neuropathic pain (Primary Dx); Severe obesity (CMS/HCC) (HCC); Primary hypertension Social History Tobacco Use Types Packs/Day Years [...] Sign Reading Time Taken Comments Blood Pressure 110/60 09/16/2025 10:46 AM EDT Pulse 64 09/16/2025 10:46 AM EDT Temperature 36.1 C (97 F) 09/16/2025 10:46 AM EDT Respiratory Rate 20 09/16/2025 10:46 AM EDT Oxygen Saturation - - Inhaled Oxygen Concentration - - Weight 118 kg (261 lb) 09/16/2025 10:46 AM EDT Height - - Body Mass Index 46.23 04/21/2025 11:29 AM EDT documented in this encounter Plan of Treatment Upcoming Encounters Date Type Department Care Team ([facility] st Contact Info) Description 10/28/2025 11:30 AM EST Office Visit [facility] MED & PEDS [address] [place], [place] [phone] Gwen Crook MD [address] [place] [address] 12/25/2025 2:30 PM EST Clinical Support [facility] CHC MED & PEDS [address] [place] [address] Gracie Riggs, RN [address] [place] [address] Scheduled Orders Name Type Priority Associated Diagnoses Orde r Schedule MAXI Screen,IFA, with Reflex to Titer and Pattern Lab Routine Neuropathic pain Severe obesity (CMS/HCC) (HCC) Primary hypertension Expected: 09/16/2025 (Approximate), Expires: 09/16/2026 Sed Rate by Modified [place] Lab Routine Neuropathic pain Severe obesity (CMS/HCC) (HCC) Primary hypertension Expected: 09/16/2025, Expires: 09/16/2026 documented as of this encounter Procedures Procedure Name Priority Date/Time Associated Diagnosis Comments VITAMIN D,25-OH,TOTAL,IA Routine 09/16/2025 11:54 AM EDT Neuropathic pain Severe obesity (CMS/HCC) (HCC) Primary hypertension VITAMIN B12/FOLATE, SERUM PANEL Routine 09/16/2025 11:54 AM EDT Neuropathic pain Severe obesity (CMS/HCC) (HCC) Primary hypertension CBC WITH AUTO DIFFERENTIAL Routine 09/16/2025 11:54 AM EDT Neuropathic pain Severe obesity (CMS/HCC) (HCC) Primary hypertension C-REACTIVE PROTEIN Routine 09/16/2025 11 :54 AM EDT Neuropathic pain Severe obesity (CMS/HCC) (HCC) Primary hypertension CREATINE KINASE, TOTAL Routine 09/16/2025 11:54 AM EDT Neuropathic pain Severe obesity (CMS/HCC) (HCC) Primary hypertension HEPATIC FUNCTION PANEL Routine 09/16/2025 11:54 AM EDT Neuropathic pain Severe obesity (CMS/HCC) (HCC) Primary hypertension BASIC METABOLIC PANEL Routine 09/16/2025 11:54 AM EDT Neuropathic pain Severe obesity (CMS/HCC) (HCC) Primary hypertension documented in this encounter Results * Creatine Kinase, Total (09/16/2025 11:54 AM EDT) Pathologist [facility] Creatine Kinase Total 116 26 - 140 U/L [facility] Blood Venous blood specimen / Unknown 09/16/2025 11:54 AM EDT 09/16/2025 2:09 PM EDT Gwen Crook MD LAB BLOOD ORDERABLES Final Re sult Performing Organization Address City/[facility]/ZIP Co de Phone Number [facility] [address] [place] [phone] * C-reactive Protein (09/16/2025 11:54 AM EDT) [facility] C Reactive Protein 0.31 < or = 0.50 mg/dL [facility] Blood Venous blood specimen / Unknown 09/16/2025 11:54 AM EDT 09/16/2025 2:09 PM EDT Gwen Crook MD LAB BLOOD ORDERABLES Final Re sult Performing Organization Address City/[facility]/ZIP Co de Phone Number [facility] [address] [place] [phone] * (ABNORMAL) Vitamin B12/Folate, Serum Panel (09/16/2025 11:54 AM EDT) Pathologist [facility] Vitamin B12 983(H) 200 - 900 pg/mL [facility] Comment:NORMAL 200-900 PG/ML INDETERMINATE 160-199 PG/ML DEFICIENT < 160 PG/ML Folate 12.3 > or = 4.0 ng/mL [facility] Comment:Reference Values:> o r = 4.0 ng/mL< 4.0 ng/mL suggests folate deficiency Methotrexate, aminopterin and folinic acid(leucovorin) are chemotherapeutic agents whose molecularstructures are similar to folate; therefore, the Architectfolate assay cannot be used for patients using these drugs. Blood Venous blood specimen / Unknown 09/16/2025 11:54 AM EDT 09/16/2025 2:09 PM EDT Gwen Crook MD LAB BLOOD ORDERABLES Final Re sult Performing Organization Address [facility]/ZIP Co de Phone Number [facility] [address] [place] [phone] * Vitamin D, 25-Hydroxy, Total, Immunoassay (09/16/2025 11:54 AM EDT) [facility] Vitamin D 25-OH Total 89.5 >30 ng/mL [facility] Comment: Health Based Reference Values*< 20 ng/mL Dbepbxpiz29-22 ng/mL Insufficient> 30 ng/mL Sufficient*Raegan THOMAS. N Engl J Med. 2007;357:266-280There is no well-established upper level of normal vitamin Dlevels. Some laboratories use 50 ng/mL as an upper limit ofnormal. However, toxicity is patient-dependent and may occurat any level. Careful correlation with the patient'spresentation is necessary and, if there is concern forvitamin D toxicity, treatment should be consideredirrespective of the serum level.Care must be taken in interpreting Vitamin D results fromdifferent laboratories and methodologies. Published datademonstrated that results from patients undergoinghemodialysis may show a negative bias when tested withvarious automated 25-OH vitamin D assays when compared toLC-MS/MS.When testing samples from patients whose predominant form ofVitamin D is Vitamin D2, such as patients receiving VitaminD2 supplementation, results that are subtherapeutic shouldbe confirmed with another method such as LC-MS/MS. Blood Venous blood specimen / Unknown 09/16/2025 11:54 AM EDT 09/16/2025 2:09 PM EDT Gwen Crook MD LAB BLOOD ORDERABLES Final Re sult Performing Organization Address [facility]/ZIP Co de Phone Number [facility] [address] [place] [phone] * Hepatic Function Panel (09/16/2025 11:54 AM EDT) Pathologist [facility] Bilirubin, Total 0.4 0.0 - 1.0 mg/dL [facility] Bilirubin, Direct 0.1 0.0 - 0.5 mg/dL [facility] Aspartate Amino Transferase 25 5 - 31 U/L [facility] Alanine Aminotransferase 24 0 - 31 U/L [facility] Total Protein 7.1 6.5 - 8.0 g/dL [facility] Albumin Level 4.3 3.5 - 5.0 g/dL [facility] Alkaline Phosphatase 92 39 - 117 U/L [facility] Blood Venous blood specimen / Unknown 09/16/2025 11:54 AM EDT 09/16/2025 2:09 PM EDT us Gwen Crook MD LAB BLOOD ORDERABLES Final Re sult [facility] [address] [place] [phone] * CBC auto differential (09/16/2025 11:54 AM EDT) [facility] White Blood Count 5.4 4.8 - 10.8 X10*3/uL [facility] Red Blood Count 4.25 4.20 - 5.50 X10*6/uL [facility] Hemoglobin 13.2 12.0 - 16.0 g/dl [facility] Hematocrit 39.6 37.0 - 47.0 % [facility] Mean Corpuscular Volume 93.2 80.0 - 98.0 fL [facility] Mean Corpuscular Hemoglobin 31.1 27.0 - 33.0 pg [facility] Mean Corpuscular HGB Conc 33.3 31.0 - 35.0 g/dl [facility] Red Cell Distribution Width 12.6 11.0 - 16.0 % [facility] Platelet Count 217 160 - 400 X10*3/uL [facility] Mean Platelet Volume 10.2 9.4 - 12.3 fL [facility] Neutrophils Percent Auto 48.3 45 - 73 % [facility] Imm Gran Pct Auto 0.2 0.0 - 0.4 % [facility] Lymphocytes Percent Auto 37.5 20 - 40 % [facility] Monocytes Percent Auto 10.4 2 - 11 % [facility] Eosinophils Percent Auto 3.2 0 - 4 % [facility] Basophils Percent Auto 0.4 0 - 2 % [facility] NRBC Pct Auto 0.0 0.0 - 0.2 /100WBC [facility] Neutrophils Absolute Auto 2.6 2.0 - 8.3 x10*3/uL [facility] Imm Gran Abs Auto 0.01 0.00 - 0.03 X10*3/uL [facility] Lymphocytes Absolute Auto 2.0 1.2 - 4.9 X10*3/uL [facility] Monocytes Absolute Auto 0.6 0.1 - 1.2 X10*3/uL [facility] Eosinophils Absolute Auto 0.2 0.0 - 0.4 X10*3/uL [facility] Basophils Absolute Auto 0.0 0.0 - 0.2 X10*3/uL [facility] NRBC Abs Auto 0.000 0.0 - 0.012 X10*3/uL [facility] Blood Venous blood specimen / Unknown 09/16/2025 11:54 AM EDT 09/16/2025 2:21 PM EDT us Gwne Crook MD LAB BLOOD ORDERABLES Final Re sult [facility] [address] [place] [phone] * (ABNORMAL) Basic Metabolic Panel (09/16/2025 11:54 AM EDT) Sodium 143 135 - 145 mmol/L [facility] Potassium 3.7 3.3 - 5.1 mmol/L [facility] Chloride 105 96 - 108 mmol/L [facility] Carbon Dioxide 30(H) 22 - 29 mmol/L [facility] Anion Gap 12 12 - 20 [facility] Urea Nitrogen (BUN) 18(H) 9 - 16 mg/dL [facility] Creatinine, Serum 0.66 0.5 - 1.4 mg/dL [facility] Estimated Glomerular Filt Rate >60 [facility] Comment:Chronic Kidney Disea se: Estimated GFR < 60 mL/min/[id number] Kidney Disease: Estimated GFR < 15 mL/min/1.73m2 Glucose 102 60 - 115 mg/dL [facility] Calcium 9.7 8.4 - 10.2 mg/dL [facility] Blood Venous blood specimen / Unknown 09/16/2025 11:54 AM EDT 09/16/2025 2:09 PM EDT us Gwen Crook MD LAB BLOOD ORDERABLES Final Re sult [facility] [address] [place] [phone] documented in this encounter Visit Diagnoses Diagnosis Neuropathic pain- Primary Severe obesity (CMS/HCC) (HCC) Morbid obesity Primary hypertension Unspecified essential hypertension documented in this encounter Additional Health Concerns Assessment Noted Time PHQ-9 Depression Total Score: 6 07/17/20 25 11:11 AM EDT documented as of this encounter Care Teams Manager Visual Relationship Specialty Start Date End Date Gwen Crook MD [address] [place] [address] PCP - General Family Medicine 11/20/18 documented as of this encounter
[2025-09-16 14:30] LABS: MANUAL DIFF FLAG NO
[2025-09-16 14:34] LABS: Hematocrit 39.6 % (37.0-47.0); Hemoglobin 13.2 g/dl (12.0-16.0); Imm Gran Abs Auto 0.01 X10*3/uL (0.00-0.03); Imm Gran Pct Auto 0.2 % (0.0-0.4); Lymphocytes Absolute Auto 2.0 X10*3/uL (1.2-4.9); Mean Corpuscular HGB Conc 33.3 g/dl (31.0-35.0); Mean Corpuscular Hemoglobin 31.1 pg (27.0-33.0); Mean Corpuscular Volume 93.2 fL (80.0-98.0); NRBC Abs Auto 0.000 X10*3/uL (0.0-0.012); NRBC Pct Auto 0.0 /100WBC (0.0-0.2); Platelet Count 217 X10*3/uL (160-400); Red Blood Count 4.25 X10*6/uL (4.20-5.50); White Blood Count 5.4 X10*3/uL (4.8-10.8)
[2025-09-16 14:40] LABS: Alanine Aminotransferase 24 U/L (0-31); Albumin Level 4.3 g/dL (3.5-5.0); Alkaline Phosphatase 92 U/L (39-117); Anion Gap 12 (12-20); Aspartate Amino Transferase 25 U/L (5-31); Blood Urea Nitrogen 18 mg/dL (9-16); Calcium 9.7 mg/dL (8.4-10.2); Carbon Dioxide 30 mmol/L (22-29); Chloride 105 mmol/L (96-108); Estimated Glomerular Filt Rate > 60; Potassium 3.7 mmol/L (3.3-5.1); Sodium 143 mmol/L (135-145); Total Protein 7.1 g/dL (6.5-8.0)
[2025-09-16 15:07] LABS: Folate 12.3 ng/mL (> or = 4.0); Vitamin B12 983 pg/mL (200-900)
--- OUTSIDE RECORDS SUMMARY | 2025-09-16 15:16 | XMS_ITS | Clinical Summary ---
Author Organization [facility] ity Address [address] [place] [address] Care Team Providers Care Maid Cleaning Cooking Name Role Phone Unavailable Primary Care Provider [...] 2019 Zoster Vaccines (1 of 2) 2019 Depression Screening 11/20/2024 COVID-19 Vaccine (1 - [...]
--- OUTSIDE RECORDS SUMMARY | 2025-09-16 15:16 | XMS_ITS | Encounter Summary ---
Author Organization [employer] Address [address] [place] [address] [place] [address] Care Team Providers Care Stem Maker Name Role Phone Gwen Crook MD Primary Care Provider Reason for Visit * Reason Comments Med Refill Encounter Details Date Type Department Care Team ([facility] st Contact Info) Description 08/21/2025 Refill [facility] CH[facility] MED & PEDS [address] [place], [place] [phone] Gwen Crook MD [address] [place] [address] Social History Tobacco Use Types Packs/Day Years [...] [facility] Contact Info) Description 10/28/2025 11:30 AM EST Office Visit [facility] MED & PEDS [address] [place] [address] Gwen Crook MD [address] [place] [address] 12/25/2025 2:30 PM EST Clinical Support [facility] MED & PEDS [address] [place] [address] Gracie Riggs RN [address] [place] [address] documented as of this encounter Visit Diagnoses Not on filedocumented in this encounter Additional Health Concerns Assessment Noted Time PHQ-9 Depression Total Score: 6 07/17/20 25 11:11 AM EDT documented as of this encounter Care Teams Stem Maker Relationship Specialty Start Date End Date Gwen Crook MD [address] [place] [address] PCP - General Family Medicine 11/20/18 documented as of this encounter
--- OUTSIDE RECORDS SUMMARY | 2025-09-16 15:16 | XMS_ITS | Encounter Summary ---
Author Organization [employer] Address [address] [place] [address] [place] [address] Care Team Providers Care Prepress Proofer Name Role Phone Gwen Crook MD Primary Care Provider Reason for Visit * Reason Onset Date Comments Med Refill 10/14/2024 Encounter Details Date Type Department Care Team ([facility] st Contact Info) Description 10/14/2024 Refill [facility] CHC MED & PEDS [address] [place], [place] [phone] Gwen Crook MD [address] [place] [address] Lumbar disc herniation with radiculopathy Social History Tobacco Use Types Packs/Day Years Used Date Smoking Tobacco: Never Passive Smoke Exposure: Never Smokeless Tobacco: Never Depression Answer Date Recorded Patient Health Questionnaire-9 Score 4 01/19/2023 Housing Stability Answer Date Recorded What is your housing situation today? I have pool donna 09/06/[address] you [...] 30 MG tablet To be sent to: [facility] - [address] documented in this encounter Plan of Treatment Upcoming Encounters Date Type Department Care Team ([facility] st Contact Info) Description 10/28/2025 11:30 AM EST Office Visit [facility] MED & PEDS [address] [place] [address] Gwen Crook MD [address] [place] [address] 12/25/2025 2:30 PM EST Clinical Support [facility] MED & PEDS [address] [place] [address] Gracie Riggs RN [address] [place] [address] documented as of this encounter Visit Diagnoses Diagnosis Lumbar disc herniation with radiculopathy Displacement of lumbar intervertebral disc without myelopathy documented in this encounter Additional Health Concerns Assessment Noted Time PHQ-9 Depression Total Score: 4 01/20/20 23 11:58 AM EST documented as of this encounter Care Teams Prepress Proofer Relationship Specialty Start Date End Date Gwen Crook MD [address] [place] [address] PCP - General Family Medicine 11/20/18 documented as of this encounter
--- OUTSIDE RECORDS SUMMARY | 2025-09-16 15:16 | XMS_ITS | Encounter Summary ---
Author Organization [employer] Address [address] [place] [address] 7 [place] [address] Care Team Providers Care Radio Producer Name Role Phone Gwen Crook MD Primary Care Provider [phone] Reason for Visit * Reason Comments Med Refill Encounter Details Date Type Department Care Team ([facility] st Contact Info) Description 02/11/2024 Refill [facility] MED & PEDS [address] [place], [place] [phone] Petros Norris MD [address] [place] [address] Social History Tobacco Use Types Packs/Day Years [...] Care Team (Late st Contact Info) Description 10/28/2025 11:30 AM EST Office Visit [facility] MED & PEDS [address] [place] [address] Gwen Crook MD [address] [place] [address] 12/25/2025 2:30 PM EST Clinical Support [facility] MED & PEDS [address] [place] [address] Gracie Riggs, TARAS [address] [place] [address] documented as of this encounter Visit Diagnoses Not on filedocumented in this encounter Additional Health Concerns Assessment Noted Time PHQ-9 Depression Total Score: 4 01/20/20 23 11:58 AM EST documented as of this encounter Care Teams Radio Producer Relationship Specialty Start Date End Date Gwen Crook MD [address] [place] [address] PCP - General Family Medicine 11/20/18 documented as of this encounter
--- OUTSIDE RECORDS SUMMARY | 2025-09-16 15:16 | XMS_ITS | Encounter Summary ---
Author Organization [employer] Address [address] [place] [address] 7 [place] [address] Care Team Providers Care Property Damage Claims Adjustor Name Role Phone Gwen Crook MD Primary Care Provider [phone] Reason for Visit * Reason Comments Med Refill Encounter Details Date Type Department Care Team ([facility] st Contact Info) Description 12/19/2024 Refill [facility] CH[facility] MED & PEDS [address] [place], [place] [phone] Gwen Crook MD [address] [place] [address] Social History Tobacco Use Types Packs/Day Years [...] Description 10/28/2025 11:30 AM EST Office [facility] MED & PEDS [address] [place] [address] Gwen Crook MD [address] [place] [address] 12/25/2025 2:30 PM EST Clinical Support [facility] MED & PEDS [address] [place] [address] Gracie Riggs, TARAS [address] [place] [address] documented as of this encounter Visit Diagnoses Not on filedocumented in this encounter Additional Health Concerns Assessment Noted Time PHQ-9 Depression Total Score: 4 01/20/20 23 11:58 AM EST documented as of this encounter Care Teams Property Damage Claims Adjustor Relationship Specialty Start Date End Date Gwen Crook MD [address] [place] [address] PCP - General Family Medicine 11/20/18 documented as of this encounter
--- OUTSIDE RECORDS SUMMARY | 2025-09-16 15:16 | XMS_ITS | Encounter Summary ---
Author Organization [employer] Address [address] [facility] [address] [place] [address] Care Team Providers Care Display Mechanic Name Role Phone Gwen Crook MD Primary Care Provider [phone] Encounter Details Date Type Department Care Team ([facility] st Contact Info) Description 12/02/2024 Orders Only [facility] MED & PEDS [address] [place] [address] Provider, MD Owen Social History Tobacco Use [...] Upcoming Encounters Date Type Department Care Team ([facility] st Contact Info) Description 10/28/2025 11:30 AM EST Office Visit [facility] MED & PEDS [address] [place] [address] Gwen Crook MD [address] [place] [address] 12/25/2025 2:30 PM EST Clinical Support [facility] MED & PEDS [address] [place], [place] [phone] Gracie Riggs RN [address] [place], [place] [phone] documented as of this encounter Procedures Procedure [...] documented as of this encounter Care Teams Display Mechanic Relationship Specialty Start Date End Date Gwen Crook MD [address] [place] [address] PCP - General Family Medicine 11/20/18 documented as of this encounter
--- OUTSIDE RECORDS SUMMARY | 2025-09-16 15:16 | XMS_ITS | Clinical Summary ---
Author Organization [employer] Address [address] [place] [address] 7 [place] [address] Care Team Providers Care Retail Buyer Name Role Phone Gwen Crook MD Primary Care Provider [phone] Allergies Active Allergy Reactions Criticality Noted Date [...] time per week. 2 mL 2 Active cyanocobalamin (Vitamin B-12) 1000 MCG tablet TAKE 1 TABLET BY MOUTH EVERY DAY 90 tablet 3 025 Active diazePAM (Valium) 2 MG tablet Take 1 tablet (2 mg) by mouth if needed at bedtime for anxiety. 30 tablet 025 2024 Active naloxone (Narcan) 4 mg/0.1 mL nasal spray Administer 1 spray (4 mg) into affected nostril(s) if needed for opioid reversal. May repeat every 2-3 minutes if needed, alternating nostrils, until medical assistance becomes available. 2 each 2 025 2025 Active acetaminophen-co deine (Tylenol w/ Codeine #3) 300-30 MG tabletIndication s:Lumbar disc herniation with radiculopathy TAKE 1 TABLET BY MOUTH EVERY 6 HOURS NEEDED FOR SEVERE PAIN 30 tablet Active methocarbamol (Robaxin) 750 MG tablet TAKE ONE TABLET BY MOUTH TWICE DAILY NEEDED FOR PAIN 60 tablet Active pregabalin (Lyrica) 100 MG capsuleIndicatio ns:Neuropathic pain Take 1 capsule (100 mg) by mouth 2 times daily. 60 capsule 2 025 2025 Active methocarbamol (Robaxin) 750 MG tablet TAKE ONE TABLET BY MOUTH TWICE DAILY NEEDED FOR PAIN 60 tablet 025 2024 Discontinued diazePAM (Valium) 2 [...] severe pain. 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 2011 Severe obesity ([facility]) 11/09/2012 Allergic rhinitis 11/09/2012 Asthma 11/09/2012 Osteoarthritis of knee 11/09/2012 Encounters Date Type Department Care Team Description 09/16/2025 10:30 AM EDT Office Visit [facility] [address] [place] [address] Gwen Crook MD Neuropathic pain (Primary Dx); Severe obesity (CMS/HCC) (HCC); Primary hypertension 09/16/2025 Travel 09/15/2025 Travel 09/13/2025 Telephone [facility] [address] [place] [address] Gwen Crook MD Chart Prep 09/12/2025 Refill [facility] [address] [place] [address] Gwen Crook MD 09/06/2025 Refill [facility] [address] [place] [address] Gwen Crook MD Lumbar disc herniation with radiculopathy 08/26/2025 Orders Only [facility] [address] [place] [address] Gwen Crook MD 08/21/2025 2:30 PM EDT Clinical Support [facility] [address] [place] [address] Gracie Riggs, TARAS Neck pain, bilateral posterior (Primary Dx) 08/21/2025 Refill [facility] [address] [place] [address] Gwen Crook MD 08/21/2025 Refill [facility] [address] [place] [address] Gracie Riggs, TARAS Lumbar disc herniation with radiculopathy 08/21/2025 Travel 08/14/2025 Travel 08/07/2025 Refill [facility] [address] [place] [address] Gwen Crook MD Lumbar disc herniation with radiculopathy 08/06/2025 Refill [facility] [address] [place] [address] Gwen Crook MD 07/17/2025 11:00 AM EDT Office Visit [facility] [address] [place] [address] Gwen Crook MD Dysuria (Primary Dx); Primary hypertension; Severe obesity (CMS/HCC); Primary osteoarthritis of both knees 07/17/2025 Travel 07/15/2025 Refill [facility] [address] [place] [address] Gwen Crook MD Lumbar disc herniation with radiculopathy 07/15/2025 Refill [facility] [address] [place] [address] Cate Shah MD 07/15/2025 Refill [facility] [address] [place] [phone] Gwen Crook MD 07/14/2025 Telephone [facility] [address] [place] [phone] Gwen Crook MD Nurse Triage 07/11/2025 Refill [facility] [address] [place] [address] Gwen Crook MD 06/25/2025 Orders Only [facility] [address] [place] [address] Gwen Crook MD Severe obesity (CMS/HCC) (Primary Dx); Prediabetes 06/25/2025 Refill [facility] [address] [place] [address] Gwen Crook MD Prediabetes; Class 3 severe obesity due to excess calories with serious comorbidity and body mass index (BMI) of 40.0 to 44.9 in adult 06/23/2025 Refill [facility] [address] [place] [address] Gwen Crook MD Lumbar disc herniation with [...] 20 09/16/2025 10:46 AM EDT Oxygen Saturation 99% 04/21/2025 11:29 AM EDT Inhaled Oxygen Concentration - - Weight 118 kg (261 lb) 09/16/2025 10:46 AM EDT Height 160 cm (5' 3 ) 04/21/2025 11:29 AM EDT Body Mass Index 46.23 04/21/2025 11:29 AM EDT Plan of Treatment Upcoming Encounters Date Type Department Care Team (Late st Contact Info) Description 10/28/2025 11:30 AM EST Office Visit [facility] [address] [place] [address] Gwen Crook MD [address] [place] [address] 12/25/2025 2:30 PM EST Clinical Support [facility] [address] [place] [address] Gracie Riggs RN [address] [place] [address] Health Maintenance Due Date Last Done Comments CT Colonography 1969 Colonoscopy 1969 FIT 1969 HIV Screening 1970 Sigmoidoscopy 1969 Hepatitis C Screening 1987 Hepatitis B Vaccines (1 of 3 - 19+ 3-dose series) 1988 Pneumococcal Vaccine: 50+ Years (1 of 2 - PCV) 1988 Zoster Vaccines (1 of 2) 2019 FOBT 03/26/2025 03/26/2024 COVID-19 Vaccine ( season) 2025 Influenza Vaccine (#1) 2025 , [...] HPV/Cotest 07/30/2027 Pap Smear 07/30/2027 07/30/2024, 07/30/2024 Mammogram 08/26/2027 08/26/2025 Lipid Panel 03/20/2029 03/20/2024, 11/04/2020 RSV Patients [...] this topic Meningococcal Vaccine Aged Out No ahsley ángel eligible based on patient's age to complete this topic RSV under 20 months Aged Out No longe r eligible based on patient's age to complete this topic Rotavirus Vaccines Aged Out No longer eligible based on patient's age to complete this topic Procedures Procedure Name Priority Date/Time Associated Diagnosis Comments CREATINE KINASE, TOTAL Routine 09/16/2025 11:54 AM EDT Neuropathic pain Severe obesity (CMS/HCC) (HCC) Primary hypertension C-REACTIVE PROTEIN Routine 09/16/2025 11 :54 AM EDT Neuropathic pain Severe obesity (CMS/HCC) (HCC) Primary hypertension VITAMIN B12/FOLATE, SERUM PANEL Routine 09/16/2025 11:54 AM EDT Neuropathic pain Severe obesity (CMS/HCC) (HCC) Primary hypertension VITAMIN D,25-OH,TOTAL,IA Routine 09/16/2025 11:54 AM EDT [...] pain Severe obesity (CMS/HCC) (HCC) Primary hypertension BI MAMMOGRAM SCREENING TOMOSYNTHESIS BILATERAL Routine 08/26/2025 12:00 PM EDT POCT JOBY-14 URINE DRUG SCREEN Routine 08/21/2025 [...] Recently Relevant to Health Maintenance Results * Vitamin D, 25-Hydroxy, Total, Immunoassay (09/16/2025 11:54 AM EDT) Vitamin D 25-OH Total 89.5 >30 ng/mL [facility] Comment: Health Based Reference Values*< 20 ng/mL Sasaxzrhk41-85 ng/mL Insufficient> 30 ng/mL Sufficient*Raegan THOMAS. N [...] MD LAB BLOOD ORDERABLES Final Re sult [facility] [address] [place] [phone] * (ABNORMAL) Vitamin B12/Folate, Serum Panel (09/16/2025 11:54 AM EDT) Vitamin B12 983(H) 200 - 900 pg/mL [facility] Comment:NORMAL 200-900 PG/ML INDETERMINATE 160-199 PG/ML DEFICIENT < 160 PG/ML Folate 12.3 > or = 4.0 ng/mL [facility] Comment:Reference Values:> o r = [...] MD LAB BLOOD ORDERABLES Final Re sult [facility] [address] [place] [address] [phone] * CBC auto differential (09/16/2025 11:54 AM EDT) White Blood Count 5.4 4.8 - 10.8 X10*3/uL [facility] Red Blood Count 4.25 4.20 - 5.50 X10*6/uL [facility] Hemoglobin 13.2 12.0 - 16.0 g/dl [facility] Hematocrit 39.6 37.0 - 47.0 % [facility] Mean Corpuscular Volume 93.2 80.0 - 98.0 fL [facility] Mean Corpuscular Hemoglobin 31.1 27.0 - 33.0 pg [facility] Mean Corpuscular HGB Conc 33.3 31.0 - 35.0 g/dl [facility] Red Cell Distribution Width 12.6 11.0 - 16.0 % [facility] Platelet Count 217 160 - 400 X10*3/uL [facility] Mean Platelet Volume 10.2 9.4 - 12.3 fL [facility] Neutrophils Percent Auto 48.3 45 - 73 % [facility] Imm Gran Pct Auto 0.2 0.0 - 0.4 % [facility] Lymphocytes Percent Auto 37.5 20 - 40 % [facility] Monocytes Percent Auto 10.4 2 - 11 % [facility] Eosinophils Percent Auto 3.2 0 - 4 % [facility] Basophils Percent Auto 0.4 0 - 2 % [facility] NRBC Pct Auto 0.0 0.0 - 0.2 /100WBC [facility] Neutrophils Absolute Auto 2.6 2.0 - 8.3 x10*3/uL [facility] Imm Gran Abs Auto 0.01 0.00 - 0.03 X10*3/uL [facility] Lymphocytes Absolute Auto 2.0 1.2 - 4.9 X10*3/uL [facility] Monocytes Absolute Auto 0.6 0.1 - 1.2 X10*3/uL [facility] Eosinophils Absolute Auto 0.2 0.0 - 0.4 X10*3/uL [facility] Basophils Absolute Auto 0.0 0.0 - 0.2 X10*3/uL [facility] NRBC Abs Auto 0.000 0.0 - 0.012 X10*3/uL [facility] Blood Venous blood specimen / Unknown 09/16/2025 11:54 AM EDT 09/16/2025 2:21 PM EDT Gewn Crook MD LAB BLOOD ORDERABLES Final Re sult Performing Organization Address City/[facility]/ZIP Co de Phone Number [facility] [address] [place] [place] [phone] * C-reactive Protein (09/16/2025 11:54 AM EDT) C Reactive Protein 0.31 < or = 0.50 mg/dL [facility] Blood Venous blood specimen / Unknown 09/16/2025 11:54 AM EDT 09/16/2025 2:09 PM EDT Gwen Crook MD LAB BLOOD ORDERABLES Final Re sult Performing Organization Address City/[facility]/ZIP Co de Phone Number [facility] [address] [place] [place] [phone] * Creatine Kinase, Total (09/16/2025 11:54 AM EDT) Creatine Kinase Total 116 26 - 140 U/L [facility] Blood Venous blood specimen / Unknown 09/16/2025 11:54 AM EDT 09/16/2025 2:09 PM EDT Gwen Crook MD LAB BLOOD ORDERABLES Final Re sult Performing Organization Address [facility] de Phone Number [facility] [address] [place] [phone] [phone] * Hepatic Function Panel (09/16/2025 11:54 AM EDT) [facility] Bilirubin, Total 0.4 0.0 - 1.0 mg/dL [facility] Bilirubin, Direct 0.1 0.0 - 0.5 mg/dL [facility] Aspartate Amino Transferase 25 5 - 31 U/L [facility] Alanine Aminotransferase 24 0 - 31 U/L [facility] Total Protein 7.1 6.5 - 8.0 g/dL [facility] Albumin Level 4.3 3.5 - 5.0 g/dL [facility] Alkaline Phosphatase 92 39 - 117 U/L [facility] Blood Venous blood specimen / Unknown 09/16/2025 11:54 AM EDT 09/16/2025 2:09 PM EDT Gwen Crook MD LAB BLOOD ORDERABLES Final Re sult Performing Organization Address [facility] de Phone Number [facility] [address] [place] [place] [phone] * (ABNORMAL) Basic Metabolic Panel (09/16/2025 11:54 AM EDT) [facility] Sodium 143 135 - 145 mmol/L [facility] Potassium 3.7 3.3 - 5.1 mmol/L [facility] Chloride 105 96 - 108 mmol/L [facility] Carbon Dioxide 30(H) 22 - 29 mmol/L [facility] Anion Gap 12 12 - 20 [facility] Urea Nitrogen (BUN) 18(H) 9 - 16 mg/dL [facility] Creatinine, Serum 0.66 0.5 - 1.4 mg/dL [facility] Estimated Glomerular Filt Rate >60 [facility] Comment:Chronic Kidney Disea se: Estimated GFR < 60 mL/min/1.19q2Skvyep Kidney Disease: Estimated GFR < 15 mL/min/1.73m2 Glucose 102 60 - 115 mg/dL [facility] Calcium 9.7 8.4 - 10.2 mg/dL [facility] Blood Venous blood specimen / Unknown 09/16/2025 11:54 AM EDT 09/16/2025 2:09 PM EDT us Gwen Crook MD LAB BLOOD ORDERABLES Final Re sult [facility] [address] [place] [place] [phone] * BI Mammogram Screening Tomosynthesis Bilateral (08/26/2025 12:00 PM EDT) Anatomical Region Laterality Modality Breast Bilateral Mammography 08/26/2025 12:0 0 PM EDT Narrative 09/02/2025 5:20 PM EDT [address] [place] [address] Mammography Report Signed Patient: Simran Murphy MR#: [id number] : 1970 Acct:[id number] Age/Sex: 54 / F ADM Date: 08/26/25 Loc: [facility] Attending Dr: Gwen Crook MD Ordering Physician: Gwen Crook MD Results: 1Ne gative Date of Service: 08/26/25 Follow Up: 1 Year From Orig inal Mammogram Procedure(s): MM tomosynthesis screening BI Accession Number(s): [id number] cc: Gwen Crook MD Reason For Exam: SCREENING EXAMINATION: MM SCREENING DIGITAL BREAST TOMOSYNTHESIS, BILATERAL CLINICAL INFORMATION: Screening. Asymptomatic. COMPARISON: Mammography: Comparison is made with available priors TECHNIQUE: Digital breast mammography with tomosynthesis is performed in both the craniocaudal and mediolateral oblique views along with computer-aided detection (CAD). FINDINGS: There are scattered areas of fibroglandular density. There are no significant masses, abnormal calcifications, or other abnormalities. MM/MM tomosynthesis screening BI IMPRESSION: No mammographic evidence of malignancy. ASSESSMENT: BI-RADS Category 1: Negative RECOMMENDATION: Routine annual mammography screening. 1 year F/U This examination should not preclude the clinical evaluation of a suspicious palpable abnormality. This patient's information was entered into a reminder system with a target due date for their next mammogram. Electronically signed by: Bri Agosto DO 09/02/2025 05:17 PM EDT RP Dictated By: Bri Agosto DO Signed By: <Electronically signed by Bri Agosto DO in OV> 09/02/25 1717 DD/ 1200 TD/TT: 08/26/25 1211 Sprinkling System Installer: Procedure Note Donotuseinterpreter, Image - [facility]/02/[facility] [address] [place] [address] Mammography Report Signed Patient: Nikki Murphy#: [id number] : 1970Acct:[id number] Age/Sex: 54 / FADM Date: 08/26/25 Loc: MAMMO Attending Dr: Gwen Crook MD Ordering Physician: Gwen Crook MDResults: 1Ne gative Date of Service: 08/26/25Follow Up: 1 Year From Orig inal Mammogram Procedure(s): MM tomosynthesis screening BI Accession Number(s): [id number] cc: Gwen Crook MD Reason For Exam: SCREENING EXAMINATION: MM SCREENING DIGITAL BREAST TOMOSYNTHESIS, BILATERAL CLINICAL INFORMATION: Screening. Asymptomatic. COMPARISON: Mammography: Comparison is made with available priors TECHNIQUE: Digital breast mammography with tomosynthesis is performed in both the craniocaudal and mediolateral oblique views along with computer-aided detection (CAD). FINDINGS: There are scattered areas of fibroglandular density. There are no significant masses, abnormal calcifications, or other abnormalities. MM/MM tomosynthesis screening BI IMPRESSION: No mammographic evidence of malignancy. ASSESSMENT: BI-RADS Category 1: Negative RECOMMENDATION: Routine annual mammography screening. 1 year F/U This examination should not preclude the clinical evaluation of a suspicious palpable abnormality. This patient's information was entered into a reminder system with a target due date for their next mammogram. Electronically signed by: Bri Agosto DO 09/02/2025 05:17 PM EDT RP Dictated By: Bri Agosto DO Signed By: <Electronically signed by Bri Agosto DO in OV> 09/02/25 1717 DD/ 1200 TD/TT: 08/26/25 1211 Sprinkling System Installer: us Gwen Crook MD IM BI PROCEDURES Final Resul t * (ABNORMAL) POCT JOBY-14 Urine Drug Screen [...] PM EDT . Internal Pass Control Lot# [id number] Exp: 09-19-26 us Gwen Crook MD POINT [...] EDT 07/17/2025 2:27 PM EDT Comment:UACC Narrative [facility] - 07/19/2025 7:28 AM EDT Escherichia coli Quant > 100,000 cfu/mL Escherichia coli: Ampicillin >=32(R) Escherichia coli: Cefazolin (Urine) 4(S) Escherichia coli: Cefepime <=0.12(S) Escherichia coli: Ceftriaxone <=0.25(S) Escherichia coli: Ciprofloxacin <=0.06(S) Escherichia coli: Gentamicin <=1(S) Escherichia coli: Nitrofurantoin <=16(S) Escherichia coli: Trimethoprim/Sulfamethoxazole <=20(S) Specimen Source: Urine clean catch Gwen Crook MD LAB MICROBIOLOGY - GENERAL OR DERABLES Final Result [facility] [address] [place] [place] [phone] * Hemoglobin A1c (01/16/2025 1:55 PM EST) Hemoglobin A1c 5.6 <6.0 % [facility] Comment:Hemoglobin A1C Refer ence Range Adults: 4.8 - 6.0 % Non diabetic: < 6.0 % Goal: < 7.0 %Additional Action Suggested: > 8.0 %Note: Hemoglobin A1c results are invalid for patients with abnormal amounts of HbF. Blood transfusions may impact the HbA1c concentration in the patient sample. Estimated Average Glucose 114 mg/dL [facility] Comment:eAG = Estimated ave rage glucose which is %A1C expressed asaverage glucose, using the formula of the W9V-BjmhumoBogsimx Glucose study (ADAG), Diabetes Care, Vol.31,#8,Jun. 2007 Blood Venous blood specimen / Unknown 01/16/2025 1:55 PM EST 01/16/2025 6:11 PM EST us Gwen Crook MD LAB BLOOD ORDERABLES Final Re sult [facility] [address] [place] [address] [phone] * Pap Smear (07/30/2024 2:17 PM EDT) SOURCE: SEE NOTE [facility] Comment:None given Report Status: TNP [facility] Clinical Information: SEE NOTE [facility] Comment:None given LMP: SEE NOTE [facility] Comment:NONE GIVEN Prev. PAP: SEE NOTE [facility] Comment:NONE GIVEN Prev. BX: SEE NOTE [facility] Comment:NONE GIVEN Statement Of Adequacy: SEE NOTE [facility] Comment:Satisfactory for carmen luation.Endocervical/transformation zone component absent. General Categorization: TNP [facility] Interpretation/Result: SEE NOTE [facility] Comment:Cytology Results: Ne gative for intraepitheliallesion or malignancy. Cytology Comment SEE NOTE [facility] Comment:This Pap test has be en evaluated with computerassisted technology. Residential Green Building Designer: SEE NOTE [facility] Comment:RPR, CT (ASCP) CT sc reening location: [place] [address] Review Residential Green Building Designer: [facility] Pathologist [facility] PAP Infection [facility] See Note SEE NOTE [facility] Comment:EXPLANATORY NOTE:The Pap is a screening test for cervical cancer. It isnot a diagnostic test and is subject to false negativeand false positive results. It is most reliable when asatisfactory sample, regularly obtained, is submittedwith relevant clinical findings and history, and whenthe Pap result is evaluated along with historic andcurrent clinical information.THIS TEST WAS PERFORMED AT:[facility] [place] [phone] SEVILLA MD Pap Vial Vaginal structure / Unknown 07/30/2024 2:17 PM EDT 07/30/2024 5:40 PM EDT Narrative [facility] - 08/05/2024 1:08 PM EDT SEE SCANNED RESULTS IN EMR Gwen Crook MD LAB PATHOLOGY ORDERABLES Maribell yarbrough Result [facility] [address] [place] [phone] [phone] * Cologuard?? colon cancer screening (03/26/2024 3:45 PM EDT) Cologuard Result Negative Negative 04/02/20 24 10:19 AM EDT [facility] (CLIA #:[id number]) Comment: NEGATIVE TEST RESULT. A negative Cologuard [...] (Cristina Matos al, N Engl J Med 2014;370(14):7735-2847) The normal value (reference range) for this assay is negative. COLOGUARD RE-SCREENING RECOMMENDATION: Periodic colorectal cancer screening is an important part of preventive healthcare for asymptomatic individuals at average risk for colorectal cancer. Following a negative Cologuard result, the [place] [employer] and U.S. Multi-Society Task Force screening guidelines recommend a Cologuard re-screening interval of 3 years. References: [place] [employer] Guideline for Colorectal Cancer Screening: https://www.cancer.org/cancer/ylzmh-lwsvez-hitjdq/twvyyiwnd-bryzklmji-okkqcpl/ac s-rec ommendations.html.; Janes DK, Abrahan CR, Humberto BakerK, Colorectal Cancer Screening: Recommendations for Physicians and Patients from the U.S. Multi-Society Task Force on Colorectal Cancer Screening , Am J Gastroenterology 2017; 112:2801-9295. TEST DESCRIPTION: Composite algorithmic analysis of stool [...] (Cristina Matos al, N Engl J Med 2014;370(14):6156-3713.) Cologuard may produce a false negative or false positive result (no colorectal cancer or precancerous polyp present at colonoscopy follow up). A negative Cologuard test result does not guarantee the absence of CRC or advanced adenoma (pre-cancer). The current Cologuard screening interval is every 3 years. ([place] [employer] and U.S. Multi-Society Task Force). Cologuard performance data in a 10,000 patient pivotal study using colonoscopy as the reference method can be accessed at the following location: www.LearnStreet/results. Additional description of the Cologuard test process, warnings and precautions can be found at www.Nursenavrd.com. Stool specimen (specimen) 03/26/2024 3:45 PM EDT 03/27/2024 11:04 AM EDT us Gwen Crook MD LAB MOLECULAR DIAGNOSTICS ORD ERABLES Final Result [facility] (CLIA #:[id number]) [address] [place] [address], * (ABNORMAL) Lipid Panel, Standard (03/20/2024 9:34 AM EDT) Triglycerides 84 <150 mg/dL [facility] Comment:Desirable Triglyceri de: less than 150 mg/dLBorderline High Triglyceride 150-199 mg/dLHigh Triglyceride: 200-499 mg/dLVery High Triglyceride: greater than or equal to 5OO mg/dL Cholesterol 183 <200 mg/dL [facility] Comment:Desirable Cholestero l: less than 200 mg/dLBorderline High Cholesterol: 200-239 mg/dLHigh Cholesterol: greater than 239 mg/dL LDL Cholesterol Calculated 105(H) <100 mg/dL [facility] Comment:Desirable LDL: less than 100 mg/dLNear Optimal/Above Optimal LDL: 110- 129 mg/dLBorderline High LDL: 130-159 mg/dLHigh LDL: 160-189 mg/dLVery High LDL: greater than or equal to 190 mg/dL HDL Cholesterol 62 >40 mg/dL [facility] Comment:Desirable HDL: great er than 40 mg/dL Note: This HDL assay may give artificially low results in patients with liver disease. Blood Venous blood specimen / Unknown 03/20/2024 9:34 AM EDT 03/20/2024 2:28 PM EDT Gwen Crook MD LAB BLOOD ORDERABLES Final Re sult [facility] [address] [place] [phone] [phone] from Last 3 Months or Most Recently Relevant to Health Maintenance Insurance [facility] ONE CARE < [address] [place] [id number] Care Teams Retail Buyer Relationship Specialty Start Date End Date Gwen Crook MD [address] [place] [phone] PCP - General Family Medicine 11/20/18
--- OUTSIDE RECORDS SUMMARY | 2025-09-16 15:16 | XMS_ITS | Encounter Summary ---
Author Organization [employer] Address [address] [place] [address] [place] [address] Care Team Providers Care Home Aid Name Role Phone Gwen Crook MD Primary Care Provider [phone] Reason for Visit * Reason Comments Med Refill Encounter Details Date Type Department Care Team ([facility] st Contact Info) Description 08/06/2025 Refill [facility] CHC MED & PEDS [address] [place], [place] [phone] Gwen Crook MD 505 [place] [address] Social History Tobacco Use Types Packs/Day Years [...] ([facility] st Contact Info) Description 10/28/2025 11:30 AM EST Office Visit [facility] MED & PEDS [address] [place] [address] Gwen Crook MD 505 [place] [address] 12/25/2025 2:30 PM EST Clinical Support [facility] MED & PEDS [address] [place] [address] Gracie Riggs RN 505 [place] [address] documented as of this encounter Visit Diagnoses Not on filedocumented in this encounter Additional Health Concerns Assessment Noted Time PHQ-9 Depression Total Score: 6 07/17/20 25 11:11 AM EDT documented as of this encounter Care Teams Home Aid Relationship Specialty Start Date End Date Gwen Crook MD 505 [place] [address] PCP - General Family Medicine 11/20/18 documented as of this encounter
--- OUTSIDE RECORDS SUMMARY | 2025-09-16 15:16 | XMS_ITS | Encounter Summary ---
Author Organization [employer] Address [address] [place] [address] [place] [address] Care Team Providers Care Metal Fabricator Apprentice Name Role Phone Gwen Crook MD Primary Care Provider [phone] Reason for Visit * Reason Onset Date Comments Nurse Triage 01/24/2024 Encounter Details Date Type Department Care Team ([facility] st Contact Info) Description 01/24/2024 Telephone [facility] CHC MED & PEDS [address] [place], [place] [phone] Gwen Crook MD 505 [place] [address] Nurse Triage Social History Tobacco Use Types [...] the past 12 months, has t he [employer], [employer] threatened to shut off services in your [...] 01/24/2024 1:15 PM EST Triage call with [place] Public Policy Mediator ID [id number] Pt reports uses a walker for walking [...] referral and tramadol refill to PCP and [facility] nursing team for follow up. Pt [...] 11:30 AM EST Office Visit [facility] MED & PEDS [address] [place] [address] Gwen Crook MD 505 [place] [address] 12/25/2025 2:30 PM EST Clinical Support [facility] MED & PEDS [address] [place] [address] Gracie Riggs, TARAS 505 [place] [address] documented as of this encounter Visit Diagnoses Not on filedocumented in this encounter Additional Health Concerns Assessment Noted Time PHQ-9 Depression Total Score: 4 01/20/20 23 11:58 AM EST documented as of this encounter Care Teams Metal Fabricator Apprentice Relationship Specialty Start Date End Date Gwen Crook MD [address] [place] [address] PCP - General Family Medicine 11/20/18 documented as of this encounter
--- OUTSIDE RECORDS SUMMARY | 2025-09-16 15:16 | XMS_ITS | Encounter Summary ---
Author Organization [employer] Address [address] [place] [address] 7 [place] [address] Care Team Providers Care Electric Distribution Checker Name Role Phone Gwen Crook MD Primary Care Provider [phone] Reason for Visit * Reason Comments Med Refill Encounter Details Date Type Department Care Team ([facility] st Contact Info) Description 03/01/2024 Refill [facility] CHC MED & PEDS [address] [place], [place] [phone] Gwen Crook MD 505 [place] [address] Social History Tobacco Use Types Packs/Day Years Used Date Smoking Tobacco: Never Passive Smoke Exposure: Never Smokeless Tobacco: Never Depression Answer Date Recorded Patient Health Questionnaire-9 Score 4 01/19/2023 Housing Stability Answer Date Recorded What is your housing situation today? I have pool thompson 09/06/[address] you [...] Description 10/28/2025 11:30 AM EST Office Visit [facility] MED & PEDS [address] [place] [address] Gwen Crook MD 505 [place] [address] 12/25/2025 2:30 PM EST Clinical Support [facility] MED & PEDS [address] [place] [address] Gracie Riggs, TARAS 505 [place] [address] documented as of this encounter Visit Diagnoses Not on filedocumented in this encounter Additional Health Concerns Assessment Noted Time PHQ-9 Depression Total Score: 4 01/20/20 23 11:58 AM EST documented as of this encounter Care Teams Electric Distribution Checker Relationship Specialty Start Date End Date Gwen Crook MD 505 [place] [address] PCP - General Family Medicine 11/20/18 documented as of this encounter
--- OUTSIDE RECORDS SUMMARY | 2025-09-16 15:17 | XMS_ITS | Encounter Summary ---
Author Organization [employer] Address [address] [facility] 7 [place] [address] Care Team Providers Care Invoicing Machine Operator Name Role Phone Gwen Crook MD Primary Care Provider [phone] Reason for Visit * Reason Onset Date Comments Nurse Triage 11/28/2023 Encounter Details Date Type Department Care Team ([facility] st Contact Info) Description 11/28/2023 Telephone [facility] MEDICINE [address] [place] [address] Gwen Crook MD [address] [place] [address] Nurse Triage Social History Tobacco Use Types [...] No answer LVM to return call to [facility] triage line [phone]. * Telephone Encounter - Cisco Murphy - [...] 11:30 AM EST Office Visit [facility] MED & PEDS 505 [place] [address] Gwen Crook MD [address] [place] [address] 12/25/2025 2:30 PM EST Clinical Support [facility] MED & PEDS [address] [place] [address] Gracie Riggs RN 505 [place] [address] documented as of this encounter Visit Diagnoses Not on filedocumented in this encounter Additional Health Concerns Assessment Noted Time PHQ-9 Depression Total Score: 4 01/20/20 23 11:58 AM EST documented as of this encounter Care Teams Invoicing Machine Operator Relationship Specialty Start Date End Date Gwen Crook MD [address] [place] [address] PCP - General Family Medicine 11/20/18 documented as of this encounter
--- OUTSIDE RECORDS SUMMARY | 2025-09-16 15:17 | XMS_ITS | Encounter Summary ---
Author Organization [employer] Address [address] [place] [address] 7 [place] [address] Care Team Providers Care Atomic Physics Professor Name Role Phone Gwen Crook MD Primary Care Provider [phone] Reason for Visit * Reason Comments Med Refill Encounter Details Date Type Department Care Team ([facility] st Contact Info) Description 06/02/2025 Refill [facility] CHC MED & PEDS 505 [place], [place] [phone] Gwen Crook MD 505 [place] [address] Lumbar disc herniation with radiculopathy Social History [...] the past 12 months, has t he [employer], oil or water company threatened to [...] Description 10/28/2025 11:30 AM EST Office Visit [facility] MED & PEDS 505 [place] [address] Gwen Crook MD [address] [place] [address] 12/25/2025 2:30 PM EST Clinical Support [facility] MED & PEDS 505 [place] [address] Gracie Riggs, TARAS 505 [place] [address] documented as of this encounter Visit Diagnoses Diagnosis Lumbar disc herniation with radiculopathy Displacement of lumbar intervertebral disc without myelopathy documented in this encounter Additional Health Concerns Assessment Noted Time PHQ-9 Depression Total Score: 4 01/20/20 23 11:58 AM EST documented as of this encounter Care Teams Atomic Physics Professor Relationship Specialty Start Date End Date Gwen Crook MD 505 [place] [address] PCP - General Family Medicine 11/20/18 documented as of this encounter
--- OUTSIDE RECORDS SUMMARY | 2025-09-16 15:17 | XMS_ITS | Encounter Summary ---
Author Organization [employer] Address [address] [place] [address] [place] [address] Care Team Providers Care Wheel Mill Operator Name Role Phone Gwen Crook MD Primary Care Provider [phone] Reason for Visit * Reason Comments Med Refill Encounter Details Date Type Department Care Team (Late Contact Info) Description 02/20/2023 Refill [facility] MED & PEDS [address] [place], [place] [phone] Gwen Crook MD 505 [place] [address] Bilateral primary osteoarthritis of knee Social History [...] Department Care Team (Late Contact Info) Description 10/28/2025 11:30 AM EST Office Visit [facility] MED & PEDS [address] [place] [address] Gwen Crook MD [address] [place], [place] [phone] 12/25/2025 2:30 PM EST Clinical Support [facility] MED & PEDS 505 [place] [address] Gracie Riggs, TARAS 505 [place] [address] documented as of this encounter Visit Diagnoses Diagnosis Bilateral primary osteoarthritis of knee documented in this encounter Additional Health Concerns Assessment Noted Time PHQ-9 Depression Total Score: 4 01/20/20 23 11:58 AM EST documented as of this encounter Care Teams Wheel Mill Operator Relationship Specialty Start Date End Date Gwen Crook MD [address] [place] [address] PCP - General Family Medicine 11/20/18 documented as of this encounter
--- OUTSIDE RECORDS SUMMARY | 2025-09-16 15:17 | XMS_ITS | Encounter Summary ---
Author Organization [employer] Address [address] [place] [address] [place] [address] Care Team Providers Care Lasting Room Machine Operator Name Role Phone Gwen Crook MD Primary Care Provider [phone] Reason for Visit * Reason Onset Date Comments Appointment Request 11/28/2022 Encounter Details Date Type Department Care Team (Late Contact Info) Description 11/28/[address] [facility] MEDICINE [address] [place], [place] [phone] Gwen Crook MD 505 [place] [address] Appointment Request Social History Tobacco Use Types [...] requesting to r/s appt 11/29/22 at 2:30 (HOTEL GUEST SERVICE AGENT Initial [place]) Please contact pt at [phone] documented in this encounter Plan of Treatment Upcoming Encounters Date Type Department Care Team (Late Contact Info) Description 10/28/2025 11:30 AM EST Office [facility] CHC MED & PEDS 505 [place] [address] Gwen Crook MD 505 [place] [address] 12/25/2025 2:30 PM EST Clinical Support [facility] MED & PEDS [address] [place] [address] Gracie Riggs RN 505 [place] [address] documented as of this encounter Visit Diagnoses Not on filedocumented in this encounter Care Teams Lasting Room Machine Operator Relationship Specialty Start Date End Date Gwen Crook MD 505 [place] [address] PCP - General Family Medicine 11/20/18 documented as of this encounter
--- OUTSIDE RECORDS SUMMARY | 2025-09-16 15:17 | XMS_ITS | Encounter Summary ---
Author Organization [employer] Address [address] [place] [address] 7 [place] [address] Care Team Providers Care Clinical Administrator Name Role Phone Gwen Crook MD Primary Care Provider [phone] Encounter Details Date Type Department Care Team (Latest Contact Info) Description 09/16/2025 Travel Social History Tobacco Use Types Packs/Day [...] Description 10/28/2025 11:30 AM EST Office Visit [facility] MED & PEDS [address] [place] [address] Gwen Crook MD 505 [place] [address] 12/25/2025 2:30 PM EST Clinical Support [facility] MED & PEDS [address] [place] [address] Gracie Riggs, TARAS [address] [place] [address] documented as of this encounter Visit Diagnoses Not on filedocumented in this encounter Additional Health Concerns Assessment Noted Time PHQ-9 Depression Total Score: 6 07/17/20 25 11:11 AM EDT documented as of this encounter Care Teams Clinical Administrator Relationship Specialty Start Date End Date Gwen Crook MD 505 [place] [address] PCP - General Family Medicine 11/20/18 documented as of this encounter
--- OUTSIDE RECORDS SUMMARY | 2025-09-16 15:17 | XMS_ITS | Encounter Summary ---
Author Organization [employer] Address [address] [place] [address] 7 [place] [address] Care Team Providers Care Transitional Care Liaison Name Role Phone Gwen Crook MD Primary Care Provider [phone] Reason for Visit * Reason Comments Med Change Request Encounter Details Date Type Department Care Team ([facility] st Contact Info) Description 03/19/2025 Refill [facility] CHC MED & PEDS [address] [place], [place] [phone] Gwen Crook MD 505 [place] [address] Social History Tobacco Use Types Packs/Day Years [...] [facility] MED & PEDS 505 [place] [address] Gwen Crook MD 505 [place] [address] 12/25/2025 2:30 PM EST Clinical Support [facility] MED & PEDS [address] [place] [address] Gracie Riggs, TARAS 505 [place] [address] documented as of this encounter Visit Diagnoses Not on filedocumented in this encounter Additional Health Concerns Assessment Noted Time PHQ-9 Depression Total Score: 4 01/20/20 23 11:58 AM EST documented as of this encounter Care Teams Transitional Care Liaison Relationship Specialty Start Date End Date Gwen Crook MD 505 [place] [address] PCP - General Family Medicine 11/20/18 documented as of this encounter
--- OUTSIDE RECORDS SUMMARY | 2025-09-16 15:17 | XMS_ITS | Encounter Summary ---
Author Organization [employer] Address [address] [place] [address] Care Team Providers Care Water Quality Assistant Name Role Phone Gwen Crook MD Primary Care Provider [phone] Reason for Visit * Reason Comments Med Refill Encounter Details Date Type Department Care Team (Late Contact Info) Description 12/16/2022 Refill [facility] MEDICINE [address] [place], [place] [phone] Paige Juares MD 505 [place] [address] Social History Tobacco Use Types Packs/Day Years [...] Description 10/28/2025 11:30 AM EST Office Visit [facility] CHC MED & PEDS [address] [place] [address] Gwen Crook MD [address] [place], [place] [phone] 12/25/2025 2:30 PM EST Clinical Support [facility] MED & PEDS 505 [place] [address] Gracie Riggs, TARAS 505 [place], [place] [phone] documented as of this encounter Visit Diagnoses Not on filedocumented in this encounter Care Teams Water Quality Assistant Relationship Specialty Start Date End Date Gwen Crook MD 505 [facility] [place] [address] PCP - General Family Medicine 11/20/18 documented as of this encounter
--- OUTSIDE RECORDS SUMMARY | 2025-09-16 15:17 | XMS_ITS | Encounter Summary ---
Author Organization [employer] Address [address] [facility] 7 [place] [address] Care Team Providers Care Rib Sawyer Name Role Phone Gwen Crook MD Primary Care Provider [phone] Reason for Visit * Reason Onset Date Comments Chart Prep 09/13/2025 Encounter Details Date Type Department Care Team ([facility] st Contact Info) Description 09/13/[address] [facility] [address] [place] [address] Gwen Crook MD [address] [place] [address] Chart Prep Social History Tobacco Use Types Packs/Day Years [...] encounter Miscellaneous Notes * Telephone Encounter - Char Lucia [place] - 09/13/2025 12:06 PM EDT Chart Prep Labs: done Images: done Referrals: not applicable Vaccines due: Covid, Flu, PCV20, Hep B, and Zoster Screenings: STI screening Overdue care gaps: Tobacco documented in this encounter Plan of Treatment Upcoming Encounters Date Type Department Care Team ([facility] st Contact Info) Description 10/28/2025 11:30 AM EST Office Visit [facility] MED & PEDS [address] [place] [address] Gwen Crook MD 505 [place] [address] 12/25/2025 2:30 PM EST Clinical Support [facility] MED & PEDS [address] [place] [address] Gracie Riggs, TARAS 505 [place] [address] documented as of this encounter Visit Diagnoses Not on filedocumented in this encounter Additional Health Concerns Assessment Noted Time PHQ-9 Depression Total Score: 6 07/17/20 11:11 AM EDT documented as of this encounter Care Teams Rib Sawyer Relationship Specialty Start Date End Date Gwen Crook MD [address] [place] [address] PCP - General Family Medicine 11/20/18 documented as of this encounter
--- OUTSIDE RECORDS SUMMARY | 2025-09-16 15:17 | XMS_ITS | Encounter Summary ---
Author Organization [employer] Address [address] [place] [address] Care Team Providers Care Kitchen Runner Name Role Phone Gwen Crook MD Primary Care Provider [phone] Reason for Visit * Reason Comments Med Refill Encounter Details Date Type Department Care Team (Late Contact Info) Description 08/18/2023 Refill [facility] MED & PEDS 505 [place], [place] [phone] Gwen Crook MD 505 [place] [address] Social History Tobacco Use Types Packs/Day Years [...] Description 10/28/2025 11:30 AM EST Office Visit [facility] CHC MED & PEDS 505 [place] [address] Gwen Crook MD 505 [place] [address] 12/25/2025 2:30 PM EST Clinical Support [facility] CHC MED & PEDS 505 [place] [address] Gracie Riggs, TARAS 505 [place] [address] documented as of this encounter Visit Diagnoses Not on filedocumented in this encounter Additional Health Concerns Assessment Noted Time PHQ-9 Depression Total Score: 4 01/20/20 23 11:58 AM EST documented as of this encounter Care Teams Kitchen Runner Relationship Specialty Start Date End Date Gwen Crook MD 505 [place] [address] PCP - General Family Medicine 11/20/18 documented as of this encounter
--- OUTSIDE RECORDS SUMMARY | 2025-09-16 15:17 | XMS_ITS | Encounter Summary ---
Author Organization [employer] Address [address] [place] [address] 7 [place] [address] Care Team Providers Care Purifying Plant Operator Name Role Phone Gwen Crook MD Primary Care Provider [phone] Encounter Details Date Type Department Care Team (Latest Contact Info) Description 09/15/2025 Travel Social History Tobacco Use Types Packs/Day [...] Description 10/28/2025 11:30 AM EST Office Visit [facility] MED & PEDS 505 [place] [address] Gwen Crook MD 505 [place] [address] 12/25/2025 2:30 PM EST Clinical Support [facility] MED & PEDS 505 [place] [address] Gracie Riggs, TARAS 505 [place] [address] documented as of this encounter Visit Diagnoses Not on filedocumented in this encounter Additional Health Concerns Assessment Noted Time PHQ-9 Depression Total Score: 6 07/17/20 25 11:11 AM EDT documented as of this encounter Care Teams Purifying Plant Operator Relationship Specialty Start Date End Date Gwen Crook MD 505 [place] [address] PCP - General Family Medicine 11/20/18 documented as of this encounter
--- OUTSIDE RECORDS SUMMARY | 2025-09-16 15:17 | XMS_ITS | Encounter Summary ---
Author Organization [employer] Address [address] [place] [address] [place] [address] Care Team Providers Care Tube Machine Operator Helper Name Role Phone Gwen Crook MD Primary Care Provider [phone] Reason for Visit * Reason Onset Date Comments triage 02/17/2023 Encounter Details Date Type Department Care Team ([facility] st Contact Info) Description 02/17/2023 Telephone [facility] CHC MED & PEDS [address] [place], [place] [phone] Gwen Crook MD 505 [place] [address] triage Social History Tobacco Use Types Packs/Day [...] No answer LVM to return call to [facility] triage line. Protocol Used: No Contact [...] Upcoming Encounters Date Type Department Care Team ([facility] st Contact Info) Description 10/28/2025 11:30 AM EST Office Visit [facility] MED & PEDS 505 [place] [address] Gwen Crook MD 505 [place] [address] 12/25/2025 2:30 PM EST Clinical Support [facility] MED & PEDS 505 [place] [address] Gracie Riggs RN 505 [place] [address] documented as of this encounter Visit Diagnoses Not on filedocumented in this encounter Additional Health Concerns Assessment Noted Time PHQ-9 Depression Total Score: 4 01/20/20 23 11:58 AM EST documented as of this encounter Care Teams Tube Machine Operator Helper Relationship Specialty Start Date End Date Gwen Crook MD 505 [place] [address] PCP - General Family Medicine 11/20/18 documented as of this encounter
--- OUTSIDE RECORDS SUMMARY | 2025-09-16 15:17 | XMS_ITS | Encounter Summary ---
Author Organization [employer] Address [address] [place] [address] [place] [address] Care Team Providers Care Area Director Of Home Health Sales Name Role Phone Gwen Crook MD Primary Care Provider [phone] Reason for Visit * Reason Comments Med Refill Encounter Details Date Type Department Care Team ([facility] st Contact Info) Description 09/12/[address] [facility] CHC MED & PEDS [address] [place], [place] [phone] Gwen Crook MD 505 [place] [address] Social History Tobacco Use Types Packs/Day Years [...] Upcoming Encounters Date Type Department Care Team ([facility] st Contact Info) Description 10/28/2025 11:30 AM EST Office Visit [facility] MED & PEDS [address] [place] [address] Gwen Crook MD 505 [place] [address] 12/25/2025 2:30 PM EST Clinical Support [facility] MED & PEDS 505 [place] [address] Graice Riggs RN 505 [place] [address] documented as of this encounter Visit Diagnoses Not on filedocumented in this encounter Additional Health Concerns Assessment Noted Time PHQ-9 Depression Total Score: 6 07/17/20 25 11:11 AM EDT documented as of this encounter Care Teams Area Director Of Home Health Sales Relationship Specialty Start Date End Date Gwen Crook MD 505 [place] [address] PCP - General Family Medicine 11/20/18 documented as of this encounter
[2025-09-22 12:28] LABS: Anti Nuclear Antibody Screen NEGATIVE (NEGATIVE)
== END 2025-09-16 11:53 | disposition home or self-care (01) ==
LOC: HO.CHCLDS 11:52
PROVIDERS: Visit Provider Pediatrics
DX: Z01.84 Encounter for antibody response examination (principal); I10 Essential (primary) hypertension; M79.2 Neuralgia and neuritis, unspecified; E66.01 Morbid (severe) obesity due to excess calories
CPT/HCPCS: 36415; 80048; 80076; 82306; 82550; 82607; 82746; 85025; 85652; 86038; 86140